=== PATIENT | female | born 1950 | race Two or more races ===

== ENCOUNTER 2017-12-13 19:34 | Inpatient (IN) | payer OTHER, MEDICAID ==
[~2017-12-13] VITALS: Ht 152.4 cm; Wt 68.0 kg
[~2017-12-13 19:34] MED LIST: ASPI-498 OR; ATOR20TA PO; CITA20TA3 PO; FAMO-12 PO; LEVO75TA42 PO
[2017-12-13 20:34] LABS: Basophils # (auto) 0.1 uL; Basophils % (auto) 0.9 % (0.0-2.0); Eosinophils # (auto) 0.4 uL; Hematocrit 35.6 % (36.0-46.0); Hemoglobin 12.1 g/dL (12.2-16.2); Lymphocytes # (auto) 2.7 uL; Lymphocytes % (auto) 29.6 % (10.0-50.0); Mean Corpuscular Hemoglobin 31.7 pg (28.0-32.0); Mean Corpuscular Hgb Conc. 33.9 g/dL (32.0-36.0); Mean Corpuscular Volume 93.4 fL (80.0-100.0); Monocytes % (auto) 10.4 % (0.0-12.0); Neutrophils % (auto) 55.1 % (37.0-80.0); Nucleated Red Blood Cells % 0.1 %; Platelet Count (auto) 210 10^3/uL (140-450); Red Blood Cells 3.81 10^6/uL (4.0-5.20); Red Cell Distribution Width 13.9 % (11.8-14.3); White Blood Cell 9.2 10^3/uL (4.4-10.8)
[2017-12-13 20:45] LABS: Albumin 3.2 g/dL (3.4-5.0); Anion Gap 10 (5-15); BUN/Creatinine Ratio 36.6; Blood Urea Nitrogen 34 mg/dL (7-18); Calcium 8.2 mg/dL (8.5-10.1); Carbon Dioxide 22 mmol/L (21-32); Chloride 109 mmol/L (98-107); GFR African American 77 mL/min; GFR Non-African American 64 mL/min; Glucose 128 mg/dL (74-106); INR 1.05 (0.9-1.15); Magnesium 2.2 mg/dL (1.6-2.6); Partial Thromboplastin Time 25.4 sec (23.78-33.04); Potassium 4.3 mmol/L (3.5-5.1); Prothrombin Time 11.2 sec (9.27-12.13); Sodium 141 mmol/L (136-145)
[2017-12-13 20:54] LABS: Alanine Aminotransferase 48 U/L (13-56); Alkaline Phosphatase 74 U/L (45-117); Aspartate Aminotransferase 37 U/L (15-37); Bilirubin, Total 0.3 mg/dL (0.2-1.0); Total Protein 6.8 g/dL (6.4-8.2)
[2017-12-13] MEDS ORDERED: HYDROcodone-ACET 5/325MG TAB PO ONE (21:15)
[2017-12-13] MEDS ORDERED: ONDANSETRON ODT 4 MG TAB PO ONE (21:15)
[2017-12-13] MEDS ORDERED: IOHEXOL 350 MG/ML 100ML IJ ONE (22:26)
[2017-12-14] MEDS ORDERED: MORPHINE SULFATE 4 MG/ML SYR/VIAL IV ONE
[2017-12-14] MEDS ORDERED: MORPHINE SULFATE 4 MG/ML SYR/VIAL IV PRN (01:15)
[2017-12-14] MEDS ORDERED: NITROGLYCERIN 0.4 MG SL TAB SL PRN (01:15)
[2017-12-14] MEDS: SODIUM CHLORIDE 0.9% 1,000 ML IV SCH ×2 (02:00→21:31)
[2017-12-14 05:00] VITALS: BP 145/78
[2017-12-14] MEDS ORDERED: HYDROcodone-ACET 10/325MG TAB PO ONE (06:00)
[2017-12-14] MEDS: LEVOTHYROXINE SODIUM 50 MCG TAB PO SCH (06:11)
[2017-12-14 09:00] VITALS: BP 100/61
[2017-12-14] MEDS ORDERED: ATORVASTATIN 20 MG TAB PO SCH ×2 (10:00→22:00)
[2017-12-14] MEDS: metFORMIN HYDROCHLORIDE 500 MG TAB PO SCH (10:00)
[2017-12-14] MEDS ORDERED: ENOXAPARIN SOD 60 MG/0.6 ML SYRINGE SC SCH (10:00)
[2017-12-14] MEDS: LOSARTAN POTASSIUM 50 MG TAB PO SCH ×2 (10:00→21:26)
[2017-12-14] MEDS: BACLOFEN 10 MG TAB PO SCH ×2 (10:19→21:26)
[2017-12-14] MEDS: FAMOTIDINE 20 MG TAB PO SCH (10:20)
[2017-12-14] MEDS: CITALOPRAM HYDROBR 20 MG TAB PO SCH (10:41)
[2017-12-14 12:58] VITALS: BP 125/74
[2017-12-14] MEDS ORDERED: DEXTROSE (50%) 50ML SYRG IV PRN (14:45)
[2017-12-14] MEDS ORDERED: HYDROcodone-ACET 10/325MG TAB PO PRN (14:45)
[2017-12-14] MEDS ORDERED: LOSA-46 PO (15:16)
[2017-12-14] MEDS ORDERED: ALBU1AER4 IN (15:16)
[2017-12-14] MEDS ORDERED: ALEN1TAB32 PO (15:16)
[2017-12-14] MEDS ORDERED: FENO1TAB42 PO (15:16)
[2017-12-14] MEDS ORDERED: CHOL100029 PO (15:16)
[2017-12-14] MEDS ORDERED: BACL20TA PO (15:16)
[2017-12-14] MEDS ORDERED: METF-370 PO (15:16)
[2017-12-14 16:19] VITALS: BP 127/71
[2017-12-14] MEDS: InsuLIN REG 1unit/0.01ml Soln (100units/ml) SC SCH (17:00)
[2017-12-14] MEDS: ACCU-CHEK COMFORT CURVE STRIP VI SCH ×2 (17:00→21:31)
[2017-12-14 22:00] VITALS: BP 137/75
[2017-12-14] MEDS ORDERED: InsuLIN REG 1unit/0.01ml Soln (100units/ml) SC SCH (22:00)
[2017-12-15] MEDS: traMADol HCL 50 MG TAB PO PRN ×3 (01:49→17:29)
[2017-12-15 05:00] VITALS: BP 123/74
[2017-12-15] MEDS: LEVOTHYROXINE SODIUM 50 MCG TAB PO SCH (06:24)
[2017-12-15] MEDS: ACCU-CHEK COMFORT CURVE STRIP VI SCH ×3 (06:26→17:23)
[2017-12-15] MEDS: InsuLIN REG 1unit/0.01ml Soln (100units/ml) SC SCH ×4 (06:27→17:26)
[2017-12-15 08:48] VITALS: BP 134/79
[2017-12-15] MEDS ORDERED: ENOXAPARIN SOD 60 MG/0.6 ML SYRINGE SC SCH (10:00)
[2017-12-15] MEDS: metFORMIN HYDROCHLORIDE 500 MG TAB PO SCH (10:00)
[2017-12-15] MEDS: CITALOPRAM HYDROBR 20 MG TAB PO SCH (10:21)
[2017-12-15] MEDS: LOSARTAN POTASSIUM 50 MG TAB PO SCH (10:22)
[2017-12-15] MEDS: BACLOFEN 10 MG TAB PO SCH (10:23)
[2017-12-15] MEDS: FAMOTIDINE 20 MG TAB PO SCH (10:23)
[2017-12-15 12:54] VITALS: BP 120/57
[2017-12-15 16:11] VITALS: BP 120/57
[2017-12-15 16:43] VITALS: BP 130/65
== END 2017-12-15 18:48 | disposition home or self-care (01) | DRG 563 ==
LOC: ER 19:34 → EDBD 19:34 → TELE 19:35 → TELE-CENTR 12-14 03:30
PROVIDERS: ADMIT Emergency Medicine; ATTEND Internal Medicine Cardiovascular Disease
DX: S42.251A Displaced fracture of greater tuberosity of right humerus, initial encounter for closed fracture (principal); J98.11 Atelectasis; E86.1 Hypovolemia; F41.9 Anxiety disorder, unspecified; I10 Essential (primary) hypertension; I67.2 Cerebral atherosclerosis; I95.1 Orthostatic hypotension; M19.019 Primary osteoarthritis, unspecified shoulder; M53.82 Other specified dorsopathies, cervical region; M19.072 Primary osteoarthritis, left ankle and foot; M77.30 Calcaneal spur, unspecified foot; W18.39XA Other fall on same level, initial encounter; S80.02XA Contusion of left knee, initial encounter; S16.1XXA Strain of muscle, fascia and tendon at neck level, initial encounter; M77.32 Calcaneal spur, left foot; M48.02 Spinal stenosis, cervical region; Z96.651 Presence of right artificial knee joint; Z86.73 Personal history of transient ischemic attack (TIA), and cerebral infarction without residual deficits; Z83.3 Family history of diabetes mellitus; Z82.3 Family history of stroke; Z82.49 Family history of ischemic heart disease and other diseases of the circulatory system; Z90.49 Acquired absence of other specified parts of digestive tract; Y93.89 Activity, other specified; Y92.098 Other place in other non-institutional residence as the place of occurrence of the external cause; Y99.8 Other external cause status
CPT/HCPCS: 36415; 70450; 71045; 71275; 72125; 73030; 73562; 73590; 73610; 80053; 82962; 83735; 83880; 84443; 84484; 85025; 85379; 85610; 85730; 93005; 94761; 96374; A6257; J1815; Q0162

== ENCOUNTER → 2018-03-18 | Outpatient (CLI) | payer MEDICARE, MEDICAID ==
[~2018-03-18] MED LIST changes: +ALBU1AER4 IN; +ALEN1TAB32 PO; +BACL20TA PO; +CHOL100029 PO; +FENO1TAB42 PO; +LOSA-46 PO; +METF-370 PO
== END | disposition home or self-care (01) ==
LOC: Rad HDHVI 13:54
PROVIDERS: ATTEND Internal Medicine Cardiovascular Disease
DX: I11.0 Hypertensive heart disease with heart failure (principal); I50.9 Heart failure, unspecified
CPT/HCPCS: 93306

== ENCOUNTER → 2018-03-28 | Outpatient (CLI) | payer MEDICARE, MEDICAID ==
[~2018-03-28] VITALS: Ht 152.4 cm; Wt 70.3 kg
[~2018-03-28] MED LIST changes: +ADENOSINE 59 MG in GIVE UN-DILUTED 0 ML IV ONE; +ADENOSINE 90 MG/30 ML INJ IV ONE
[2018-03-28 12:23] LABS: Urine Blood Negative /uL (Negative); Urine Specific Gravity 1.024 (1.001-1.035)
[2018-03-28 12:24] LABS: Basophils # (auto) 0.1 uL; Basophils % (auto) 0.9 % (0.0-2.0); Eosinophils # (auto) 0.3 uL; Eosinophils % (auto) 4.2 % (0.0-7.0); Hematocrit 38.9 % (36.0-46.0); Hemoglobin 12.9 g/dL (12.2-16.2); Lymphocytes # (auto) 2.4 uL; Lymphocytes % (auto) 28.8 % (10.0-50.0); Mean Corpuscular Hemoglobin 30.5 pg (28.0-32.0); Mean Corpuscular Volume 92.5 fL (80.0-100.0); Monocytes # (auto) 0.8 uL; Monocytes % (auto) 9.3 % (0.0-12.0); Neutrophils # (auto) 4.7 uL; Neutrophils % (auto) 56.8 % (37.0-80.0); Nucleated Red Blood Cells % 0.3 %; Platelet Count (auto) 230 10^3/uL (140-450); Red Blood Cells 4.21 10^6/uL (4.0-5.20); Red Cell Distribution Width 14.8 % (11.8-14.3); White Blood Cell 8.3 10^3/uL (4.4-10.8)
[2018-03-28 12:40] LABS: Potassium 3.7 mmol/L (3.5-5.1)
[2018-03-28 12:50] LABS: Albumin 3.4 g/dL (3.4-5.0); BUN/Creatinine Ratio 21.2; Bilirubin, Total 0.6 mg/dL (0.2-1.0); Calcium 8.3 mg/dL (8.5-10.1)
[2018-03-28 12:52] LABS: Free T4 (Free Thyroxine) 1.26 ng/dL (0.89-1.76)
== END | disposition home or self-care (01) ==
LOC: Rad HDHVI 09:34
PROVIDERS: ATTEND Internal Medicine Cardiovascular Disease
DX: E03.9 Hypothyroidism, unspecified (principal); E11.9 Type 2 diabetes mellitus without complications; E55.9 Vitamin D deficiency, unspecified; D51.9 Vitamin B12 deficiency anemia, unspecified; N39.0 Urinary tract infection, site not specified; I11.0 Hypertensive heart disease with heart failure; I50.33 Acute on chronic diastolic (congestive) heart failure; J98.4 Other disorders of lung; R60.9 Edema, unspecified
CPT/HCPCS: 36415; 78452; 80053; 80061; 81003; 82306; 82607; 83036; 84439; 84443; 85025; 87086; 93005; 96374; 96375; A9500; J0153

== ENCOUNTER → 2018-06-28 | Outpatient (CLI) | payer MEDICARE, MEDICAID ==
[~2018-06-28] MED LIST changes: -ADENOSINE 59 MG in GIVE UN-DILUTED 0 ML IV ONE; -ADENOSINE 90 MG/30 ML INJ IV ONE
== END | disposition home or self-care (01) ==
LOC: LAB 09:04
PROVIDERS: ATTEND Internal Medicine Cardiovascular Disease
DX: E11.40 Type 2 diabetes mellitus with diabetic neuropathy, unspecified (principal); E03.9 Hypothyroidism, unspecified
CPT/HCPCS: 36415; 83036; 84443

== ENCOUNTER → 2018-07-19 | Outpatient (CLI) | payer MEDICARE, MEDICAID | END | disposition home or self-care (01) | LOC: Rad HDHVI 11:34 | PROVIDERS: ATTEND Internal Medicine Cardiovascular Disease | DX: M48.061 Spinal stenosis, lumbar region without neurogenic claudication (principal); M43.16 Spondylolisthesis, lumbar region; M54.16 Radiculopathy, lumbar region; M12.88 Other specific arthropathies, not elsewhere classified, other specified site; R06.02 Shortness of breath | CPT/HCPCS: 72131 ==

== ENCOUNTER → 2018-10-25 | Outpatient (CLI) | payer MEDICARE, MEDICAID ==
[~2018-10-25] MED LIST changes: -LOSA-46 PO; +LOSA-69 PO
== END | disposition home or self-care (01) ==
LOC: Rad HDHVI 13:56
PROVIDERS: ATTEND Internal Medicine Cardiovascular Disease
DX: G45.9 Transient cerebral ischemic attack, unspecified (principal); E11.9 Type 2 diabetes mellitus without complications; R06.02 Shortness of breath
CPT/HCPCS: 93880

== ENCOUNTER 2018-12-05 18:45 | Inpatient (IN) | payer MEDICARE, MEDICAID ==
[~2018-12-05] VITALS: Ht 149.9 cm; Wt 60.0 kg
[2018-12-05] MEDS ORDERED: ACETAMINOPHEN 325 MG TAB PO ONE ×2 (18:56→19:00)
[2018-12-05 19:25] LABS: Basophils # (auto) 0.1 uL; Basophils % (auto) 0.5 % (0.0-2.0); Eosinophils # (auto) 0 uL; Eosinophils % (auto) 0.2 % (0.0-7.0); Hematocrit 37.3 % (36.0-46.0); Hemoglobin 12.3 g/dL (12.2-16.2); Lymphocytes # (auto) 1.4 uL; Lymphocytes % (auto) 9.5 % (10.0-50.0); Monocytes # (auto) 1.5 uL; Monocytes % (auto) 9.6 % (0.0-12.0); Neutrophils # (auto) 12.1 uL; Neutrophils % (auto) 80.2 % (37.0-80.0); Nucleated Red Blood Cells % 0.1 %; Platelet Count (auto) 228 10^3/uL (140-450); Red Cell Distribution Width 13.3 % (11.8-14.3); White Blood Cell 15.1 10^3/uL (4.4-10.8)
[2018-12-05 20:03] LABS: Alanine Aminotransferase 31 U/L (13-56); Albumin 3.5 g/dL (3.4-5.0); Anion Gap 10 (5-15); Aspartate Aminotransferase 23 U/L (15-37); BUN/Creatinine Ratio 18.5; Blood Urea Nitrogen 20 mg/dL (7-18); Carbon Dioxide 22 mmol/L (21-32); Chloride 101 mmol/L (98-107); GFR African American 65 mL/min; GFR Non-African American 53 mL/min; Glucose 147 mg/dL (74-106); Sodium 133 mmol/L (136-145)
[2018-12-05 20:08] LABS: Alkaline Phosphatase 49 U/L (45-117); Bilirubin, Total 0.7 mg/dL (0.2-1.0)
[2018-12-05 20:45] LABS: Urine Bacteria MANY /hpf (None Seen); Urine Blood TRACE /uL (Negative); Urine Hyaline Cast FEW /lpf (0 - 2); Urine Mucus FEW (None Seen); Urine Specific Gravity 1.013 (1.001-1.035); Urine WBC 369 /hpf (0 - 5); Urine WBC Clumps PRESENT /hpf (None Seen)
[2018-12-06] MEDS ORDERED: cefTRIAXone 1GM/50ML D5W 50 ML IV ONE (07:30)
[2018-12-06] MEDS: SODIUM CHLORIDE 0.9% 1,000 ML IV SCH ×2 (08:25→16:31)
[2018-12-06] MEDS ORDERED: DEXTROSE (50%) 50ML SYRG IV PRN (08:30)
[2018-12-06] MEDS ORDERED: ACETAMINOPHEN 500 MG TAB PO PRN (08:30)
[2018-12-06] MEDS ORDERED: MORPHINE SULF INJ 2 MG/ML SYRINGE 1ML IV PRN ×2 (08:30)
[2018-12-06] MEDS ORDERED: ONDANSETRON HCL 4 MG/2 ML VIAL IV PRN (08:30)
[2018-12-06] MEDS ORDERED: NITROGLYCERIN 0.4 MG SL TAB SL PRN (08:30)
[2018-12-06] MEDS: cefTRIAXone 1GM/50ML D5W 50 ML IV SCH (08:57)
[2018-12-06] MEDS ORDERED: ASPirin 325 MG TAB PO ONE (09:00)
[2018-12-06] MEDS ORDERED: ENOXAPARIN SOD 100 MG/1 ML SYRINGE SC ONE (09:00)
[2018-12-06] MEDS: CITALOPRAM HYDROBR 20 MG TAB PO SCH (10:00)
[2018-12-06] MEDS: ASPirin-EC 81 mg tab PO SCH (10:00)
[2018-12-06] MEDS: FAMOTIDINE 20 MG TAB PO SCH (10:00)
[2018-12-06] MEDS: LOSARTAN POTASSIUM 50 MG TAB PO SCH ×2 (10:00→22:22)
[2018-12-06] MEDS: DOCUSATE SOD 100 MG CAP PO SCH ×2 (10:00→22:21)
[2018-12-06] MEDS: CHOLECALCIFEROL (VITD3) 1,000 UNIT TAB PO SCH (10:00)
--- NOTE | 2018-12-06 12:00 | NUR ---
Telemetry admit from [facility] admitted to Telemetry unit after SBAR received. AAOX4, breathing even nonlabored, S1, S2, denied of n/v or abd pain at this time. IV to right FA 20G running NS @ 125ml/hr. Patient oriented to Jeff Cruz RN primary RN, unit, room, bed, and unit policies regarding patient care and visiting hours. Patient now on continuous telemetry monitoring, tele box # 36 and telemetry reading on arrival to unit is sinus rhythm 71. Patient placed on bedside oxygen, weighed by bedscale and encouraged to call if they need something. All questions and concerns addressed, patient verbalized understanding. Bed locked in the lowest position, call light within easy reach, will continue to monitor.
--- NOTE | 2018-12-06 12:14 | NUR ---
BLOOD CULTURE + FOR GRAM (_) JAK. SHERI QUINN MADE AWARE. NO NEW ORDER.
[2018-12-06] MEDS: InsuLIN REG 1unit/0.01ml Soln (100units/ml) SC SCH ×3 (12:24→22:32)
[2018-12-06] MEDS: ACCU-CHEK COMFORT CURVE STRIP VI SCH ×3 (12:24→22:23)
[2018-12-06 12:39] VITALS: BP 116/52
[2018-12-06 12:47] VITALS: BP 116/52
[2018-12-06 17:00] VITALS: BP 108/59
[2018-12-06] MEDS: HYDROcodone-ACET 5/325MG TAB PO PRN (18:13)
--- NOTE | 2018-12-06 18:49 | NUR ---
PT HAS TEMP 102.3, HR 160, BP 123/70. DR. VELASQUEZ MADE AWARE, NEW ORDER TYLENOL 650MG PO QID PRN. WILL CARRY OUT ORDER.
--- NOTE | 2018-12-06 21:10 | NUR ---
IV removal Patient complaining of pain at IV site. IV DC'd with clean sterile technique, catheter fully intact. Pressure dressing applied to site. Patient tolerated well.
--- NOTE | 2018-12-06 21:20 | NUR ---
IV insertion IV access obtained, via clean sterile technique by inserting gauge catheter at forearm after 1 attempt. IV secured properly. No trauma to site. Patient tolerated well.
[2018-12-06 22:00] VITALS: BP 143/53
[2018-12-06] MEDS: ATORVASTATIN 20 MG TAB PO SCH (22:21)
[2018-12-06] MEDS: BACLOFEN 10 MG TAB PO SCH (22:22)
[2018-12-07] MEDS: SODIUM CHLORIDE 0.9% 1,000 ML IV SCH ×3 (00:25→16:25)
[2018-12-07] MEDS: ACETAMINOPHEN 325 MG TAB PO PRN ×2 (03:52→11:56)
[2018-12-07 05:00] VITALS: BP 114/58
[2018-12-07 05:16] LABS: Basophils # (auto) 0.1 uL; Basophils % (auto) 0.5 % (0.0-2.0); Eosinophils # (auto) 0 uL; Eosinophils % (auto) 0.3 % (0.0-7.0); Hemoglobin 10.8 g/dL (12.2-16.2); Lymphocytes # (auto) 1.5 uL; Lymphocytes % (auto) 13.9 % (10.0-50.0); Mean Corpuscular Hemoglobin 30.8 pg (28.0-32.0); Mean Corpuscular Hgb Conc. 33.7 g/dL (32.0-36.0); Mean Corpuscular Volume 91.6 fL (80.0-100.0); Monocytes # (auto) 1.2 uL; Monocytes % (auto) 11.1 % (0.0-12.0); Neutrophils % (auto) 74.2 % (37.0-80.0); Platelet Count (auto) 207 10^3/uL (140-450); Red Blood Cells 3.49 10^6/uL (4.0-5.20); Red Cell Distribution Width 13.4 % (11.8-14.3); White Blood Cell 10.7 10^3/uL (4.4-10.8)
[2018-12-07 05:34] LABS: Calcium 7.6 mg/dL (8.5-10.1); Potassium 3.9 mmol/L (3.5-5.1)
[2018-12-07 05:37] LABS: BUN/Creatinine Ratio 18.6
[2018-12-07] MEDS: ACCU-CHEK COMFORT CURVE STRIP VI SCH ×4 (06:55→21:51)
[2018-12-07] MEDS ORDERED: LEVOTHYROXINE SODIUM 50 MCG PO SCH (07:00)
[2018-12-07] MEDS: LEVOTHYROXINE SODIUM 50 MCG TAB PO SCH (07:01)
[2018-12-07] MEDS: InsuLIN REG 1unit/0.01ml Soln (100units/ml) SC SCH ×4 (07:02→22:00)
[2018-12-07 09:00] VITALS: BP 144/76
[2018-12-07] MEDS: cefTRIAXone 1GM/50ML D5W 50 ML IV SCH (09:00)
[2018-12-07] MEDS: DOCUSATE SOD 100 MG CAP PO SCH ×2 (09:59→21:50)
[2018-12-07] MEDS: CITALOPRAM HYDROBR 20 MG TAB PO SCH (09:59)
[2018-12-07] MEDS: CHOLECALCIFEROL (VITD3) 1,000 UNIT TAB PO SCH (09:59)
[2018-12-07] MEDS: ASPirin-EC 81 mg tab PO SCH (09:59)
[2018-12-07] MEDS: BACLOFEN 10 MG TAB PO SCH ×2 (10:00→21:50)
[2018-12-07] MEDS: FAMOTIDINE 20 MG TAB PO SCH (10:00)
[2018-12-07] MEDS: LOSARTAN POTASSIUM 50 MG TAB PO SCH ×2 (10:00→21:50)
[2018-12-07 13:00] VITALS: BP 111/51
[2018-12-07 17:00] VITALS: BP 114/50
[2018-12-07 21:50] VITALS: BP 125/93
[2018-12-07] MEDS: ATORVASTATIN 20 MG TAB PO SCH (21:50)
[2018-12-07] MEDS: HYDROcodone-ACET 5/325MG TAB PO PRN (21:51)
[2018-12-08] MEDS: SODIUM CHLORIDE 0.9% 1,000 ML IV SCH ×2 (00:25→08:25)
[2018-12-08] MEDS: ACCU-CHEK COMFORT CURVE STRIP VI SCH ×4 (05:23→21:59)
[2018-12-08] MEDS: InsuLIN REG 1unit/0.01ml Soln (100units/ml) SC SCH ×4 (05:30→21:59)
[2018-12-08] MEDS: LEVOTHYROXINE SODIUM 50 MCG TAB PO SCH (05:30)
[2018-12-08 05:31] VITALS: BP 152/66
--- NOTE | 2018-12-08 07:30 | NUR ---
Opening Shift Note Assumed care of patient, awake and alert. No S/S of distress/SOB or pain. Instructed on POC and to call for assist PRN, will continue to monitor for changes Q1hr and PRN.
[2018-12-08 09:00] VITALS: BP 155/64
[2018-12-08] MEDS: cefTRIAXone 1GM/50ML D5W 50 ML IV SCH (09:00)
[2018-12-08] MEDS: CHOLECALCIFEROL (VITD3) 1,000 UNIT TAB PO SCH (10:39)
[2018-12-08] MEDS: LOSARTAN POTASSIUM 50 MG TAB PO SCH ×2 (10:41→21:58)
[2018-12-08] MEDS: ASPirin-EC 81 mg tab PO SCH (10:41)
[2018-12-08] MEDS: FAMOTIDINE 20 MG TAB PO SCH (10:42)
[2018-12-08] MEDS: CITALOPRAM HYDROBR 20 MG TAB PO SCH (10:43)
[2018-12-08] MEDS: DOCUSATE SOD 100 MG CAP PO SCH ×2 (10:43→21:57)
[2018-12-08] MEDS: BACLOFEN 10 MG TAB PO SCH ×2 (10:44→21:57)
[2018-12-08] MEDS: HYDROcodone-ACET 5/325MG TAB PO PRN (11:42)
[2018-12-08 13:00] VITALS: BP 125/48
--- NOTE | 2018-12-08 15:38 | NUR ---
assessment Patient is a 67 year old female who is alert and oriented. Patients cognitive abilities are intact. Prior to admission patient lived home with her roommate and functioned with assistance. Per patient she will return home to her prior living arrangements post discharge and will have transport home. Patient informed me she has a [facility] caregiver. Patients PCP is Dr Jordan. Patient is on service with [facility]. Patient will need a resumption of care for home health on discharge. I informed patient she has a right to speak to a social economist regarding all care. I informed patient she has a right to participate in any and all discharge planning. Patient is aware of visiting hours on the hospital floor. I informed patient she has a right to privacy. Patient does not have a POA and advanced directive. I have offered patient information on POA and advanced directives. I informed the patient the advantages and benefits of having an Advanced Directive. Patient verbalized understanding and agreed to discharge plan. Addendum: 12/08/18 at 1547 by Ashely CASON Amended: Links added.
[2018-12-08 16:03] LABS: Basophils # (auto) 0.1 uL; Eosinophils # (auto) 0.2 uL; Eosinophils % (auto) 2.4 % (0.0-7.0); Hematocrit 32.1 % (36.0-46.0); Hemoglobin 10.8 g/dL (12.2-16.2); Lymphocytes # (auto) 2.4 uL; Lymphocytes % (auto) 29.7 % (10.0-50.0); Mean Corpuscular Hemoglobin 30.8 pg (28.0-32.0); Mean Corpuscular Hgb Conc. 33.6 g/dL (32.0-36.0); Mean Corpuscular Volume 91.7 fL (80.0-100.0); Monocytes % (auto) 11.7 % (0.0-12.0); Neutrophils # (auto) 4.5 uL; Neutrophils % (auto) 55.2 % (37.0-80.0); Nucleated Red Blood Cells % 0.1 %; Platelet Count (auto) 242 10^3/uL (140-450); Red Cell Distribution Width 13.6 % (11.8-14.3); White Blood Cell 8.1 10^3/uL (4.4-10.8)
[2018-12-08 16:15] LABS: Albumin 2.5 g/dL (3.4-5.0); BUN/Creatinine Ratio 17.1; Calcium 8.4 mg/dL (8.5-10.1); Potassium 4.1 mmol/L (3.5-5.1)
[2018-12-08 16:18] LABS: Bilirubin, Total 0.2 mg/dL (0.2-1.0); Total Protein 6.6 g/dL (6.4-8.2)
[2018-12-08 17:00] VITALS: BP 144/75
--- NOTE | 2018-12-08 19:10 | NUR ---
Opening Shift Note Received report from Jessica HAYWARD. Assumed care of patient, awake and alert. No S/S of distress/SOB or pain. Instructed on POC and to call for assist PRN. Fall precaution measures in place, will continue to monitor for changes Q1hr and PRN.
[2018-12-08 19:28] LABS: Urine Bacteria NONE SEEN /hpf (None Seen); Urine Blood Negative /uL (Negative); Urine Specific Gravity 1.006 (1.001-1.035); Urine WBC 1 /hpf (0 - 5)
[2018-12-08 21:40] VITALS: BP 140/65
[2018-12-08] MEDS: ATORVASTATIN 20 MG TAB PO SCH (21:57)
[2018-12-08] MEDS: ACETAMINOPHEN 325 MG TAB PO PRN (21:59)
[2018-12-09] VITALS (7 sets, daily range): BP systolic 141–177; BP diastolic 60–74
[2018-12-09] MEDS: SODIUM CHLORIDE 0.9% 1,000 ML IV SCH ×3 (02:20→16:25)
[2018-12-09] MEDS: ACCU-CHEK COMFORT CURVE STRIP VI SCH ×4 (06:50→22:23)
[2018-12-09] MEDS: LEVOTHYROXINE SODIUM 50 MCG TAB PO SCH (06:50)
[2018-12-09] MEDS: InsuLIN REG 1unit/0.01ml Soln (100units/ml) SC SCH ×4 (06:51→22:00)
--- NOTE | 2018-12-09 07:28 | NUR ---
Opening Shift Note Report received from NOC RN and patient rounded on by both RNs. Patient awake, and reporting chills. Will recheck temperature as last was normal. Patient oriented to this RN and POC. Call light within reach and patient understands to call if needing assistance.
[2018-12-09] MEDS: ACETAMINOPHEN 325 MG TAB PO PRN ×3 (08:17→22:24)
[2018-12-09] MEDS: cefTRIAXone 1GM/50ML D5W 50 ML IV SCH (09:02)
[2018-12-09] MEDS: ASPirin-EC 81 mg tab PO SCH (09:03)
[2018-12-09] MEDS: FAMOTIDINE 20 MG TAB PO SCH (09:03)
[2018-12-09] MEDS: CHOLECALCIFEROL (VITD3) 1,000 UNIT TAB PO SCH (09:03)
[2018-12-09] MEDS: DOCUSATE SOD 100 MG CAP PO SCH ×2 (09:04→22:22)
[2018-12-09] MEDS: BACLOFEN 10 MG TAB PO SCH ×2 (09:04→22:22)
[2018-12-09] MEDS: CITALOPRAM HYDROBR 20 MG TAB PO SCH (09:04)
[2018-12-09] MEDS: LOSARTAN POTASSIUM 50 MG TAB PO SCH ×2 (09:04→22:23)
--- NOTE | 2018-12-09 12:05 | NUR ---
NUTRITION ASSESSMENT NOTES Please refer to link notes of nutrition screen form filed under the intervention section of the plan of care for further details. Est. Needs: 1450 kcal to 1750 kcal (25-30 kcal/kgBW), 58 gms to 70 gms pro (1.0-1.2 gms/kgBW). Will continue to monitor pertinent labs and reassess nutrient need prn Thank you. Addendum: 12/09/18 at [address] Amended: Links added.
--- NOTE | 2018-12-09 15:30 | NUR ---
MD at bedside Dr. Jordan came to see patient and this RN reported high fever last night and continuous abdominal tenderness. Order received for CT abdomen and pelvis with IV/oral contrast.
[2018-12-09] MEDS ORDERED: IOHEXOL 300 MG/ML 100ML BOTTLE IJ ONE (15:37)
[2018-12-09] MEDS ORDERED: OMNIPAQUE ORAL SOLN 500ml 12mg/ml PO ONE (15:38)
--- NOTE | 2018-12-09 19:15 | NUR ---
Opening Shift Note Received report from Carisa HAYWARD. Assumed care of patient, awake and alert. No S/S of distress/SOB or pain. Instructed on POC and to call for assist PRN, will continue to monitor for changes Q1hr and PRN.
[2018-12-09] MEDS: ATORVASTATIN 20 MG TAB PO SCH (22:22)
[2018-12-10] MEDS: SODIUM CHLORIDE 0.9% 1,000 ML IV SCH ×3 (01:30→14:02)
[2018-12-10 05:28] VITALS: BP 147/72
[2018-12-10] MEDS: LEVOTHYROXINE SODIUM 50 MCG TAB PO SCH (07:05)
[2018-12-10] MEDS: InsuLIN REG 1unit/0.01ml Soln (100units/ml) SC SCH ×4 (07:05→21:48)
[2018-12-10] MEDS: ACCU-CHEK COMFORT CURVE STRIP VI SCH ×4 (07:05→21:48)
--- NOTE | 2018-12-10 08:00 | NUR ---
OPENING SHIFT NOTE ASSUMED CARE OF PATIENT. PATIENT IS AWAKE AND ALERT. NO SOB OR SIGNS OF DISTRESS NOTED. INSTRUCTED ON POC AND TO CALL FOR ASSISTANCE PRN. BED IN LOWEST POSITION WITH SIDE RAILS UP X2. WILL CONTINUE TO MONITOR.
[2018-12-10 09:00] VITALS: BP 155/71
[2018-12-10] MEDS: cefTRIAXone 1GM/50ML D5W 50 ML IV SCH (09:35)
[2018-12-10] MEDS: CHOLECALCIFEROL (VITD3) 1,000 UNIT TAB PO SCH (09:36)
[2018-12-10] MEDS: ACETAMINOPHEN 325 MG TAB PO PRN ×2 (09:37→21:38)
[2018-12-10] MEDS: ASPirin-EC 81 mg tab PO SCH (09:37)
[2018-12-10] MEDS: LOSARTAN POTASSIUM 50 MG TAB PO SCH ×2 (09:37→21:37)
[2018-12-10] MEDS: CITALOPRAM HYDROBR 20 MG TAB PO SCH (09:37)
[2018-12-10] MEDS: FAMOTIDINE 20 MG TAB PO SCH (09:38)
[2018-12-10] MEDS: BACLOFEN 10 MG TAB PO SCH ×2 (09:38→21:37)
[2018-12-10] MEDS: DOCUSATE SOD 100 MG CAP PO SCH ×2 (09:38→21:37)
[2018-12-10 13:00] VITALS: BP 144/77
[2018-12-10] MEDS: PIPERACILLIN-TAZO 4.5GM 100 ML IV SCH ×2 (14:00→21:37)
[2018-12-10 16:40] VITALS: BP 155/55
--- NOTE | 2018-12-10 19:20 | NUR ---
Opening Shift Note Report received from day shift RN. Assumed care of patient. Patient sitting in bed awake and alert x4. Family at bedside. No S/S of distress/SOB noted and denies pain at this time. Bed locked and left in the lowest position. Call left within reach. Instructed on POC and to call for assist PRN, will continue to monitor for changes Q1hr and PRN.
[2018-12-10] MEDS: ATORVASTATIN 20 MG TAB PO SCH (21:38)
[2018-12-10 22:00] VITALS: BP 164/73
[2018-12-11] MEDS: SODIUM CHLORIDE 0.9% 1,000 ML IV SCH ×3 (00:25→16:25)
[2018-12-11 05:00] VITALS: BP 165/77
[2018-12-11] MEDS: PIPERACILLIN-TAZO 4.5GM 100 ML IV SCH ×3 (06:04→21:35)
[2018-12-11] MEDS: ACCU-CHEK COMFORT CURVE STRIP VI SCH ×4 (06:04→21:38)
[2018-12-11] MEDS: LEVOTHYROXINE SODIUM 50 MCG TAB PO SCH (06:04)
[2018-12-11] MEDS: InsuLIN REG 1unit/0.01ml Soln (100units/ml) SC SCH ×4 (06:13→22:06)
[2018-12-11] MEDS: ACETAMINOPHEN 325 MG TAB PO PRN ×2 (08:59→21:35)
[2018-12-11 09:00] VITALS: BP 182/75
[2018-12-11] MEDS: DOCUSATE SOD 100 MG CAP PO SCH ×2 (09:13→21:35)
[2018-12-11] MEDS: FAMOTIDINE 20 MG TAB PO SCH (09:14)
[2018-12-11] MEDS: ASPirin-EC 81 mg tab PO SCH (09:14)
[2018-12-11] MEDS: BACLOFEN 10 MG TAB PO SCH ×2 (09:14→21:35)
[2018-12-11] MEDS: CHOLECALCIFEROL (VITD3) 1,000 UNIT TAB PO SCH (09:14)
[2018-12-11] MEDS: CITALOPRAM HYDROBR 20 MG TAB PO SCH (09:15)
[2018-12-11] MEDS: LOSARTAN POTASSIUM 50 MG TAB PO SCH ×2 (09:15→21:55)
[2018-12-11 13:00] VITALS: BP 177/84
[2018-12-11] MEDS: cloNIDine HCL 0.1 MG TAB PO PRN (16:50)
[2018-12-11 17:00] VITALS: BP 163/77
--- NOTE | 2018-12-11 17:00 | NUR ---
Patient had blood pressure of 177/72. Contacted Dr. Jordan for prn medication. Gave orders. Will place and carry out.
--- NOTE | 2018-12-11 18:30 | NUR ---
ADMINISTERED BLOOD PRESSURE MEDICATION. BP ON REASSESSMENT WAS 158/76.
--- NOTE | 2018-12-11 19:25 | NUR ---
Opening Shift Note Report received from day shift RN. Assumed care of patient. Patient sitting in bed awake and alert x4. No S/S of distress/SOB noted. Patient states having a headache, pain level 6/10 on a numerical scale. Will medicate patient as ordered. Bed locked and left in the lowest position. Call left within reach. Instructed on POC and to call for assist PRN, will continue to monitor for changes Q1hr and PRN.
[2018-12-11] MEDS: ATORVASTATIN 20 MG TAB PO SCH (21:38)
[2018-12-11 22:23] VITALS: BP 164/75
[2018-12-12] MEDS: SODIUM CHLORIDE 0.9% 1,000 ML IV SCH ×4 (00:25→23:56)
[2018-12-12] MEDS: cloNIDine HCL 0.1 MG TAB PO PRN (01:02)
[2018-12-12 05:26] VITALS: BP 151/71
[2018-12-12] MEDS: LEVOTHYROXINE SODIUM 50 MCG TAB PO SCH (06:04)
[2018-12-12] MEDS: PIPERACILLIN-TAZO 4.5GM 100 ML IV SCH ×3 (06:04→21:44)
[2018-12-12] MEDS: ACCU-CHEK COMFORT CURVE STRIP VI SCH ×4 (06:04→21:56)
[2018-12-12] MEDS: InsuLIN REG 1unit/0.01ml Soln (100units/ml) SC SCH ×4 (06:20→21:55)
[2018-12-12 09:00] VITALS: BP 138/68
[2018-12-12] MEDS: CITALOPRAM HYDROBR 20 MG TAB PO SCH (09:24)
[2018-12-12] MEDS: DOCUSATE SOD 100 MG CAP PO SCH ×2 (09:25→21:44)
[2018-12-12] MEDS: CHOLECALCIFEROL (VITD3) 1,000 UNIT TAB PO SCH (09:25)
[2018-12-12] MEDS: ASPirin-EC 81 mg tab PO SCH (09:25)
[2018-12-12] MEDS: FAMOTIDINE 20 MG TAB PO SCH (09:25)
[2018-12-12] MEDS: BACLOFEN 10 MG TAB PO SCH ×2 (09:25→21:45)
[2018-12-12] MEDS: LOSARTAN POTASSIUM 50 MG TAB PO SCH ×2 (09:28→21:45)
--- NOTE | 2018-12-12 10:58 | NUR ---
Nutrition Follow-up Notes Wt.: 58.0 kg Pt was sleeping with no family by bedside. per records pt with UTI sepsis and leucocytosis. pt with no distress noted per nursing. pt is currently on CCHO 60 gm/meal diet with adequate PO of 75% x 4 per RN doc Est. Needs: 1450 kcal to 1750 kcal (25-30 kcal/kgBW), 58 gms to 70 gms pro (1.0-1.2 gms/kgBW). Will continue to monitor pertinent labs and reassess nutrient need prn Labs: No new labs today 12/08: ALB 2.5 L, CA 8.4 L, GLU 108 H, POC GLU 141 H Skin: Gabino scale 20low risk skin intact per [facility]. GI: Pt had 2 BM yesterday per [facility]. PES: Altered nutrition related lab values r/t current/chronic medical condition aeb hyperglycemia, hyperchloremia, elev. HbA1c, LFTs, hypocalcemia and mod hypoalbuminemia Will continue to monitor PO intake, skin status, pertinent labs and weight trend. F/u in 3-5 days. Rec.: 1.) Consider Consistent Standard Carb: 60 gms/meal, Cardiac: 2 gms Na, Low Chol, Low Fat diet, if LFTs continue trending up. 2.) If Albumin continues trending down, consider Prostat 1 pkt BID. 3.) Continue close supervision and feeding assistance prn during meals. 4.) Refer to CDE/RD for further nutrition educ. and weight monitoring upon discharge. 5.) Continue current plan of care.
[2018-12-12 13:00] VITALS: BP 161/63
[2018-12-12 13:54] LABS: Hematocrit 35.4 % (36.0-46.0); Hemoglobin 11.8 g/dL (12.2-16.2); Mean Corpuscular Hemoglobin 29.9 pg (28.0-32.0); Mean Corpuscular Hgb Conc. 33.4 g/dL (32.0-36.0); Mean Corpuscular Volume 89.3 fL (80.0-100.0); Platelet Count (auto) 408 10^3/uL (140-450); Red Blood Cells 3.97 10^6/uL (4.0-5.20); Red Cell Distribution Width 13.8 % (11.8-14.3)
[2018-12-12 14:14] LABS: Albumin 2.8 g/dL (3.4-5.0); Potassium 3.9 mmol/L (3.5-5.1)
[2018-12-12 14:17] LABS: Bilirubin, Total 0.4 mg/dL (0.2-1.0); Total Protein 7.3 g/dL (6.4-8.2)
[2018-12-12 14:20] LABS: Band Neutrophils % (manual) 0; Basophils % (manual) 0 (0.0-2.0); Blast Cells 0; Metamyelocytes % 0; Myelocytes % 0; Promyelocytes % 0; Reactive Lymphocytes 0
[2018-12-12 14:46] LABS: Eosinophils % (manual) 2 (0-7); Lymphocytes % (manual) 36 (10.0-50.0); Monocytes % (manual) 4 (0-12)
[2018-12-12 17:00] VITALS: BP 160/76
[2018-12-12] MEDS: HYDROcodone-ACET 5/325MG TAB PO PRN (19:45)
[2018-12-12] MEDS: ATORVASTATIN 20 MG TAB PO SCH (21:45)
[2018-12-12 21:48] VITALS: BP 141/63
[2018-12-13 05:08] VITALS: BP 132/52
[2018-12-13] MEDS: PIPERACILLIN-TAZO 4.5GM 100 ML IV SCH ×2 (05:42→14:04)
[2018-12-13] MEDS: InsuLIN REG 1unit/0.01ml Soln (100units/ml) SC SCH ×3 (06:41→17:00)
[2018-12-13] MEDS: LEVOTHYROXINE SODIUM 50 MCG TAB PO SCH (06:41)
[2018-12-13] MEDS: ACCU-CHEK COMFORT CURVE STRIP VI SCH ×3 (06:41→17:00)
--- NOTE | 2018-12-13 07:50 | NUR ---
RECEIVED PATIENT ALERT AND ORIENTED X4, NOT IN DISTRESS CLEAR LS IN BILATERAL LUNG LOBES, RR=18 SAT=98, DEEP BREATHING AND COUGHING ENCOURAGED, DEMONSTRATED AND VERBALIZED UNDERSTANDING, DENIED CHEST PAIN OR SOB, S ELLIOT R=54 IN TELE MONITOR, ABDOMEN SOFT WITH ACTIVE BS, LAST BM=12/12/18 REPORTED, BSC PRIVILEGE WITH ASSISTANCE, SKIN INTACT WARM TO TOUCH, SITTING ON BED DANGLING AND EATING BREAK FAST AT THIS MOMENT, BED ON LOW POSITION, CALL LIGHT ON REACH, WILL CONTINUE MONITORING.
[2018-12-13] MEDS: SODIUM CHLORIDE 0.9% 1,000 ML IV SCH ×2 (08:17→16:25)
[2018-12-13 09:25] VITALS: BP 137/67
[2018-12-13] MEDS: LOSARTAN POTASSIUM 50 MG TAB PO SCH (09:41)
[2018-12-13] MEDS: FAMOTIDINE 20 MG TAB PO SCH (09:42)
[2018-12-13] MEDS: BACLOFEN 10 MG TAB PO SCH (09:43)
[2018-12-13] MEDS: ASPirin-EC 81 mg tab PO SCH (09:43)
[2018-12-13] MEDS: DOCUSATE SOD 100 MG CAP PO SCH (09:43)
[2018-12-13] MEDS: CITALOPRAM HYDROBR 20 MG TAB PO SCH (09:43)
[2018-12-13] MEDS: CHOLECALCIFEROL (VITD3) 1,000 UNIT TAB PO SCH (10:06)
[2018-12-13 12:58] VITALS: BP 143/69
--- NOTE | 2018-12-13 14:30 | NUR ---
Not in distress, denied pain, tolerated provided diet tray well, tolerating bed side commode with assistance, soft consistent medium brown BM x2 noted, resting on bed, will continue monitoring.
[2018-12-13 16:43] VITALS: BP 145/65
--- NOTE | 2018-12-13 18:43 | NUR ---
D/C Planning Per consult for home health physical therapy. Contacted [facility] Ph:) Fax:) Faxed medical records. Per Danette from [facility] to resume service for Pt. Informed MAINOR Tejeda regarding need for physical therapy evaluation. MAINOR Tejeda stated Physical therapist was gone for the day. Advised MAINOR Tejeda that pt does have home health set up for physical therapy. MAINOR Tejeda verbalize understanding and Pt was aware of home health acceptance. Addendum: 12/13/18 at 1848 by KURT PORTILLO Amended: Links added.
--- NOTE | 2018-12-13 19:06 | NUR ---
D/C INSTRUCTIONS AND EDUCATION PROVIDED, FOLLOW UP APPOINTMENT WITH DR. VELASQUEZ AND [facility] INFORMATION PROVIDED, VERBALIZED UNDERSTANDING, D/C TELE AND IV SITE, TOLERATED WELL, VS T=97.8 RR=18 SAT=98 P=58 IS=326/67, D/C HOME ON WC ACCOMPANIED BY FAMILY, TOOK ALL BELONGINGS AND LEFT NOTHING BEHIND.
== END 2018-12-13 18:55 | disposition home health service (06) | DRG 872 ==
LOC: ER 18:48 → TELE 18:49 → TELE-CENTR 12-06 12:23
PROVIDERS: ADMIT Nurse Practitioner Acute Care; ATTEND Internal Medicine Cardiovascular Disease
DX: A41.9 Sepsis, unspecified organism (principal); N12 Tubulo-interstitial nephritis, not specified as acute or chronic; E86.0 Dehydration; M19.90 Unspecified osteoarthritis, unspecified site; M81.0 Age-related osteoporosis without current pathological fracture; E03.9 Hypothyroidism, unspecified; E11.65 Type 2 diabetes mellitus with hyperglycemia; I10 Essential (primary) hypertension; K57.30 Diverticulosis of large intestine without perforation or abscess without bleeding; E78.00 Pure hypercholesterolemia, unspecified; E78.5 Hyperlipidemia, unspecified; I70.8 Atherosclerosis of other arteries; Z96.659 Presence of unspecified artificial knee joint; X58.XXXD Exposure to other specified factors, subsequent encounter; B96.20 Unspecified Escherichia coli [E. coli] as the cause of diseases classified elsewhere; E11.40 Type 2 diabetes mellitus with diabetic neuropathy, unspecified; E11.21 Type 2 diabetes mellitus with diabetic nephropathy; K76.0 Fatty (change of) liver, not elsewhere classified; Z79.84 Long term (current) use of oral hypoglycemic drugs; Z80.41 Family history of malignant neoplasm of ovary; Z82.3 Family history of stroke; Z82.49 Family history of ischemic heart disease and other diseases of the circulatory system; Z83.3 Family history of diabetes mellitus; Z86.73 Personal history of transient ischemic attack (TIA), and cerebral infarction without residual deficits; Z90.49 Acquired absence of other specified parts of digestive tract; Z79.899 Other long term (current) drug therapy; S42.212D Unspecified displaced fracture of surgical neck of left humerus, subsequent encounter for fracture with routine healing; Z88.6 Allergy status to analgesic agent; I25.2 Old myocardial infarction
CPT/HCPCS: 36415; 71045; 74177; 80048; 80053; 81001; 82962; 83036; 83605; 84443; 84484; 85007; 85025; 85027; 87040; 87077; 87086; 87088; 87186; 93005; 96365; 96375; G0378; J0696; J1815; J2405; J2543

== ENCOUNTER → 2018-12-19 | Outpatient (CLI) | payer MEDICARE, MEDICAID ==
[2018-12-19 16:07] LABS: Basophils # (auto) 0.1 uL; Eosinophils # (auto) 0.2 uL; Eosinophils % (auto) 2.9 % (0.0-7.0); Hematocrit 37.3 % (36.0-46.0); Hemoglobin 12.7 g/dL (12.2-16.2); Lymphocytes # (auto) 1.8 uL; Lymphocytes % (auto) 24.4 % (10.0-50.0); Mean Corpuscular Hemoglobin 31.1 pg (28.0-32.0); Mean Corpuscular Volume 91.5 fL (80.0-100.0); Monocytes # (auto) 0.6 uL; Monocytes % (auto) 8.9 % (0.0-12.0); Neutrophils # (auto) 4.6 uL; Neutrophils % (auto) 62.8 % (37.0-80.0); Platelet Count (auto) 333 10^3/uL (140-450); Red Blood Cells 4.07 10^6/uL (4.0-5.20); Red Cell Distribution Width 14.7 % (11.8-14.3); White Blood Cell 7.3 10^3/uL (4.4-10.8)
[2018-12-19 16:08] LABS: Urine Blood Negative /uL (Negative); Urine Specific Gravity 1.019 (1.001-1.035)
[2018-12-19 16:15] LABS: BUN/Creatinine Ratio 25.3; Potassium 4.3 mmol/L (3.5-5.1)
== END | disposition home or self-care (01) ==
LOC: LAB 11:26
PROVIDERS: ATTEND Internal Medicine Cardiovascular Disease
DX: D64.9 Anemia, unspecified (principal); N39.0 Urinary tract infection, site not specified; I11.0 Hypertensive heart disease with heart failure; I50.9 Heart failure, unspecified
CPT/HCPCS: 36415; 80048; 81003; 85025; 87086

== ENCOUNTER → 2018-12-21 | Outpatient (CLI) | payer MEDICARE, MEDICAID | END | disposition home or self-care (01) | LOC: Rad HDHVI 14:03 | PROVIDERS: ATTEND Internal Medicine Cardiovascular Disease | DX: I08.8 Other rheumatic multiple valve diseases (principal); I10 Essential (primary) hypertension; J98.4 Other disorders of lung | CPT/HCPCS: 93306 ==

== ENCOUNTER → 2019-01-23 | Outpatient (CLI) | payer MEDICARE, MEDICAID ==
[2019-01-23 16:01] LABS: Urine Blood Negative /uL (Negative); Urine Specific Gravity 1.007 (1.001-1.035)
[2019-01-23 16:08] LABS: Albumin 3.5 g/dL (3.4-5.0); Potassium 4.6 mmol/L (3.5-5.1)
[2019-01-23 16:12] LABS: Basophils # (auto) 0.1 uL; Basophils % (auto) 1.2 % (0.0-2.0); Eosinophils # (auto) 0.3 uL; Eosinophils % (auto) 3.9 % (0.0-7.0); Hematocrit 37.5 % (36.0-46.0); Hemoglobin 12.4 g/dL (12.2-16.2); Lymphocytes # (auto) 1.9 uL; Mean Corpuscular Hemoglobin 30.6 pg (28.0-32.0); Mean Corpuscular Volume 92.6 fL (80.0-100.0); Monocytes # (auto) 0.6 uL; Monocytes % (auto) 9.1 % (0.0-12.0); Neutrophils # (auto) 3.9 uL; Neutrophils % (auto) 57.8 % (37.0-80.0); Platelet Count (auto) 264 10^3/uL (140-450); Red Blood Cells 4.06 10^6/uL (4.0-5.20); Red Cell Distribution Width 15.7 % (11.8-14.3); White Blood Cell 6.8 10^3/uL (4.4-10.8)
[2019-01-23 16:16] LABS: Bilirubin, Direct 0.1 mg/dL (0-0.2); Bilirubin, Total 0.3 mg/dL (0.2-1.0); Calcium 8.9 mg/dL (8.5-10.1); Total Protein 7.7 g/dL (6.4-8.2)
== END | disposition home or self-care (01) ==
LOC: LAB 12:15
PROVIDERS: ATTEND Internal Medicine Cardiovascular Disease
DX: E03.9 Hypothyroidism, unspecified (principal); I10 Essential (primary) hypertension; N39.0 Urinary tract infection, site not specified; K90.9 Intestinal malabsorption, unspecified; I50.9 Heart failure, unspecified; F32.9 Major depressive disorder, single episode, unspecified; Z88.5 Allergy status to narcotic agent; Z79.899 Other long term (current) drug therapy; Z82.3 Family history of stroke; Z82.49 Family history of ischemic heart disease and other diseases of the circulatory system; Z83.3 Family history of diabetes mellitus; Z83.42 Family history of familial hypercholesterolemia; Z80.41 Family history of malignant neoplasm of ovary
CPT/HCPCS: 36415; 80048; 80061; 80076; 81003; 82306; 83036; 84443; 85025

== ENCOUNTER → 2019-03-06 | Outpatient (CLI) | payer MEDICARE, MEDICAID ==
[~2019-03-06] MED LIST changes: +READI-CAT 2 (BARIUM SULF)(VANILLA SMOOTHIE) 450ML ONE
== END | disposition home or self-care (01) ==
LOC: Rad HDHVI 12:26
PROVIDERS: ATTEND Internal Medicine Cardiovascular Disease
DX: I70.8 Atherosclerosis of other arteries (principal)
CPT/HCPCS: 74176

== ENCOUNTER → 2019-08-21 | Outpatient (CLI) | payer MEDICARE, MEDICAID ==
[~2019-08-21] MED LIST changes: +FENO145T27 PO; -FENO1TAB42 PO; -READI-CAT 2 (BARIUM SULF)(VANILLA SMOOTHIE) 450ML ONE
[2019-08-21 12:09] LABS: Urine Blood Negative /uL (Negative); Urine Specific Gravity 1.019 (1.001-1.035)
[2019-08-21 12:21] LABS: Hematocrit 38.3 % (36.0-46.0); Hemoglobin 12.7 g/dL (12.2-16.2); Mean Corpuscular Hemoglobin 30.5 pg (28.0-32.0); Mean Corpuscular Hgb Conc. 33.2 g/dL (32.0-36.0); Mean Corpuscular Volume 91.9 fL (80.0-100.0); Platelet Count (auto) 200 10^3/uL (140-450); Red Blood Cells 4.17 10^6/uL (4.0-5.20); Red Cell Distribution Width 15.2 % (11.8-14.3); White Blood Cell 7.1 10^3/uL (4.4-10.8)
[2019-08-21 12:23] LABS: Band Neutrophils % (manual) 0; Basophils % (manual) 0 (0.0-2.0); Blast Cells 0; Metamyelocytes % 0; Promyelocytes % 0; Reactive Lymphocytes 0
[2019-08-21 12:29] LABS: Free T4 (Free Thyroxine) 1.48 ng/dL (0.89-1.76)
[2019-08-21 12:36] LABS: Albumin 3.4 g/dL (3.4-5.0); BUN/Creatinine Ratio 22.4; Bilirubin, Total 0.4 mg/dL (0.2-1.0); Calcium 8.7 mg/dL (8.5-10.1); Total Protein 7.2 g/dL (6.4-8.2)
[2019-08-21 12:42] LABS: Eosinophils % (manual) 7 (0-7); Lymphocytes % (manual) 44 (10.0-50.0); Monocytes % (manual) 7 (0-12); Myelocytes % 1
== END | disposition home or self-care (01) ==
LOC: LAB 09:19
PROVIDERS: ATTEND Internal Medicine Cardiovascular Disease
DX: N39.0 Urinary tract infection, site not specified (principal); Z00.00 Encounter for general adult medical examination without abnormal findings; E03.9 Hypothyroidism, unspecified; K90.9 Intestinal malabsorption, unspecified; Z79.899 Other long term (current) drug therapy; D51.9 Vitamin B12 deficiency anemia, unspecified
CPT/HCPCS: 36415; 80053; 80061; 81003; 82306; 82607; 83036; 84439; 84443; 85007; 85027; 87086; 87088; 87186

== ENCOUNTER → 2019-08-28 | Outpatient (CLI) | payer MEDICARE, MEDICAID ==
[2019-08-28 16:06] LABS: Urine Blood Negative /uL (Negative); Urine Specific Gravity 1.011 (1.001-1.035)
== END | disposition home or self-care (01) ==
LOC: LAB 11:36
PROVIDERS: ATTEND Internal Medicine Cardiovascular Disease
DX: N39.0 Urinary tract infection, site not specified (principal)
CPT/HCPCS: 81003; 87086; 87088; 87186

== ENCOUNTER 2019-10-01 15:36 | Emergency (ER) | payer MEDICARE, MEDICAID ==
[~2019-10-01] VITALS: Ht 149.9 cm; Wt 64.9 kg
[2019-10-01 15:45] VITALS: BP 120/53
== END 2019-10-01 18:48 | disposition home or self-care (01) ==
LOC: ER 15:36
DX: U07.1 COVID-19 (principal); I10 Essential (primary) hypertension; I25.2 Old myocardial infarction; E11.9 Type 2 diabetes mellitus without complications; M19.90 Unspecified osteoarthritis, unspecified site; Z90.49 Acquired absence of other specified parts of digestive tract; Z90.89 Acquired absence of other organs; Z88.6 Allergy status to analgesic agent
CPT/HCPCS: 71045; 87635

== ENCOUNTER 2019-12-31 17:29 | Inpatient (IN) | payer MEDICARE, MEDICAID ==
[~2019-12-31] VITALS: Ht 149.9 cm; Wt 69.1 kg
[2019-12-31 18:34] LABS: Basophils # (auto) 0.1 10 ^3/uL (0-0.2); Basophils % (auto) 1.4 % (0.0-2.0); Eosinophils # (auto) 0.6 10 ^3/uL (0-0.8); Eosinophils % (auto) 6.9 % (0.0-7.0); Hematocrit 28.2 % (36.0-46.0); Hemoglobin 9.4 g/dL (12.2-16.2); Lymphocytes % (auto) 32.6 % (10.0-50.0); Mean Corpuscular Hemoglobin 31.1 pg (28.0-32.0); Mean Corpuscular Hgb Conc. 33.2 g/dL (32.0-36.0); Mean Corpuscular Volume 93.6 fL (80.0-100.0); Monocytes % (auto) 11.2 % (0.0-12.0); Neutrophils # (auto) 4.5 10 ^3/uL (1.6-8.6); Neutrophils % (auto) 47.9 % (37.0-80.0); Nucleated Red Blood Cells % 0.2 %; Platelet Count (auto) 289 10^3/uL (140-450); Red Blood Cells 3.01 10^6/uL (4.0-5.20); Red Cell Distribution Width 15.6 % (11.8-14.3); White Blood Cell 9.4 10^3/uL (4.4-10.8)
[2019-12-31 18:47] LABS: Alanine Aminotransferase 42 U/L (13-56); Albumin 2.8 g/dL (3.4-5.0); Anion Gap 5 (5-15); Aspartate Aminotransferase 48 U/L (15-37); BUN/Creatinine Ratio 14.8; Blood Urea Nitrogen 8 mg/dL (7-18); Carbon Dioxide 29 mmol/L (21-32); Chloride 103 mmol/L (98-107); GFR African American 143 mL/min; GFR Non-African American 118 mL/min; Glucose 114 mg/dL (74-106); Magnesium 2.2 mg/dL (1.6-2.6); Potassium 4.3 mmol/L (3.5-5.1); Sodium 137 mmol/L (136-145)
[2019-12-31 18:51] LABS: Alkaline Phosphatase 68 U/L (45-117); Bilirubin, Total 0.3 mg/dL (0.2-1.0); Total Protein 6.3 g/dL (6.4-8.2)
[2019-12-31 19:06] LABS: INR 1.05 (0.9-1.15); Partial Thromboplastin Time 30.1 sec (23.0-31.2)
[2019-12-31] MEDS ORDERED: DOXYCYCLINE 100MG/250ML 250 ML IV ONE (20:30)
[2019-12-31] MEDS ORDERED: DexAMETHasone SOD PHOS 10MG/1ML VIAL INJ IV ONE (20:30)
[2019-12-31] MEDS ORDERED: NITROGLYCERIN 0.4 MG SL TAB SL PRN (22:00)
[2019-12-31] MEDS ORDERED: MORPHINE SULF INJ 2 MG/ML SYRINGE 1ML IV PRN (22:00)
[2019-12-31] MEDS ORDERED: DEXTROSE (50%) 50ML SYRG IV PRN (22:00)
[2019-12-31 22:18] VITALS: BP 115/52
[2019-12-31] MEDS: ATORVASTATIN 20 MG TAB PO SCH (22:37)
[2019-12-31] MEDS: ACCU-CHEK COMFORT CURVE STRIP VI SCH (22:54)
[2019-12-31] MEDS: InsuLIN REG 1unit/0.01ml Soln (100units/ml) SC SCH (22:54)
--- NOTE | 2020-01-01 | NUR ---
Telemetry admit from [facility] admitted to Telemetry unit after SBAR received. Patient oriented to MARCELINO KRISHNA RN primary RN, unit, room, bed, and unit policies regarding patient care and visiting hours. Patient now on continuous telemetry monitoring, tele box #8 and telemetry reading on arrival to unit is Sinus Rhythm at 78BPM. Patient placed on bedside oxygen, weighed by bedscale and encouraged to call if they need something. All questions and concerns addressed, patient verbalized understanding.
--- NOTE | 2020-01-01 | NUR ---
Patient states she is incontinent of bowel and urine, bedrest at this time because of weakness but patient is able to aid in turning and repositioning. No distress noted, patient is on 8L mask saturating at 98%. Will monitor
--- NOTE | 2020-01-01 00:03 | NUR ---
Respiratory note: SCHEDULED MED NEB TX HELD AT THIS TIME DUE TO PENDING COVID TEST RESULTS. PT IN NO RESPIRATORY DISTRESS, WILL CONTINUE TO MONITOR.
[2020-01-01 01:27] VITALS: BP 147/82
--- NOTE | 2020-01-01 04:50 | NUR ---
Complete bed changed done. Patient is incontinent for bladder and soaked the bed. Cleansed jennifer area and changed gown. Patient tolerated well.
[2020-01-01 05:26] VITALS: BP 132/60
[2020-01-01] MEDS: LEVALBUTEROL HCL 1.25 MG/3 ML NEB NEB SCH ×4 (06:00→19:16)
[2020-01-01] MEDS: ACCU-CHEK COMFORT CURVE STRIP VI SCH ×4 (06:21→21:50)
[2020-01-01] MEDS: LEVOTHYROXINE SODIUM 50 MCG TAB PO SCH (06:21)
[2020-01-01] MEDS: InsuLIN REG 1unit/0.01ml Soln (100units/ml) SC SCH ×4 (06:23→21:50)
[2020-01-01] MEDS: metFORMIN HYDROCHLORIDE 500 MG TAB PO SCH (08:18)
[2020-01-01] MEDS: ASPirin 81 mg TAB PO SCH (09:14)
[2020-01-01] MEDS: BACLOFEN 10 MG TAB PO SCH ×2 (09:14→22:08)
[2020-01-01] MEDS: methylPREDNISolone SOD SUCC 40 MG/ML VL IV SCH ×3 (09:14→22:08)
[2020-01-01] MEDS: FAMOTIDINE 20 MG TAB PO SCH (09:14)
[2020-01-01 09:15] VITALS: BP 146/76
[2020-01-01] MEDS: CHOLECALCIFEROL (VITD3) 1,000UNIT=25mCg TAB PO SCH (09:15)
[2020-01-01] MEDS: LOSARTAN POTASSIUM 50 MG TAB PO SCH (09:15)
[2020-01-01] MEDS: CITALOPRAM HYDROBR 20 MG TAB PO SCH (09:16)
[2020-01-01] MEDS ORDERED: ERGOCALCIFEROL 50,000 UNIT(1.25MG) CAP PO SCH (10:00)
--- NOTE | 2020-01-01 11:00 | NUR ---
WOUND CARE NOTE: WOUND CARE IN TO SEE PATIENT PER WOUND CARE REQUEST. [facility] BEDSIDE NURSE NOTED SKIN INTEGRITY ISSUE UPON ADMISSION. PHOTOGRAPH TAKEN AT THAT TIME FOR REFERENCE. PATIENT NOTED TO HAVE A STAGE 2 PRESSURE INJURY WITH OPEN DRIED BLISTER TO THE SACRUM. PATIENT RAMA SCORE IS 12. WOUND CLEANSED WITH NORMAL SALINE, PATTED DRY, ZGUARD APPLIED, COVERED WITH OPTIFOAM GENTLE SACRAL DRESSING. RECOMMEND: FREQUENT Q2HOUR REPOSITIONING CONDITION PERMITS. REDISTRIBUTE PRESSURE UTILIZING PILLOWS AND WEDGES. BID/PRN DRESSING CHANGE TO SACRUM. DIETARY CONSULT. SKIN/WOUND CARE PLAN. CONTINUED MONITORING BY WOUND CARE TEAM. Addendum: 01/01/20 at 1455 by JAVI GARCIA RN RN Amended: Links added.
[2020-01-01 14:15] VITALS: BP 132/58
[2020-01-01 17:00] VITALS: BP 121/58
--- NOTE | 2020-01-01 19:55 | NUR ---
Opening Shift Note Assumed care of patient, awake and alert. No S/S of distress/SOB or pain. Instructed on POC and to call for assist PRN, will continue to monitor for changes Q1hr and PRN. Patient made aware of transferring to [place] unit.
--- NOTE | 2020-01-01 20:30 | NUR ---
Report/SBAR Report given to MAINOR Valdes.
--- NOTE | 2020-01-01 20:40 | NUR ---
Transferred Patient transferred via wheelchair, no status change. Patient tolerated well.
--- NOTE | 2020-01-01 20:45 | NUR ---
transferred from [facility], patient was covid negative. Patient did well on transfer. New tele box requested. Will continue to monitor patient.
--- NOTE | 2020-01-01 21:52 | NUR ---
Patient stated that she does not take insulin at night as she states she will drop. Patient had blood sugar of 171mg/dl, patient refused insulin at this time. Will continue to monitor patient.
[2020-01-01 22:00] VITALS: BP 129/63
[2020-01-01] MEDS: ATORVASTATIN 20 MG TAB PO SCH (22:08)
--- NOTE | 2020-01-01 22:40 | NUR ---
Specialty mattress delivered for patient per wound care nurse consult. will transfer patient to new mattress.
--- NOTE | 2020-01-01 23:30 | NUR ---
Patient transferred to specialty mattress. Patient tolerated the transfer well. Will continue to monitor patient.
[2020-01-02] MEDS: LEVALBUTEROL HCL 1.25 MG/3 ML NEB NEB SCH ×4 (01:09→20:02)
[2020-01-02 05:00] VITALS: BP 117/57
[2020-01-02] MEDS: ACCU-CHEK COMFORT CURVE STRIP VI SCH ×4 (06:23→22:08)
[2020-01-02] MEDS: methylPREDNISolone SOD SUCC 40 MG/ML VL IV SCH ×3 (06:23→22:07)
[2020-01-02] MEDS: InsuLIN REG 1unit/0.01ml Soln (100units/ml) SC SCH ×4 (06:23→22:00)
[2020-01-02] MEDS: LEVOTHYROXINE SODIUM 50 MCG TAB PO SCH (06:23)
[2020-01-02] MEDS: metFORMIN HYDROCHLORIDE 500 MG TAB PO SCH (07:52)
--- NOTE | 2020-01-02 08:00 | NUR ---
RECEIVED PATIENT ALERT AND ORIENTED X4, NOT IN DISTRESS, WHEEZING SOUNDS IN BILATERAL LUNG LOBES, RR=20 LCW=095 WITH 6 L NC, DEEP BREATHING AND COUGHING ENCOURAGED, DEMONSTRATED AND VERBALIZED UNDERSTANDING WELL, SR R=68 ON TELE MONITOR, DENIED CHEST PAIN AND SOB, ABDOMEN SOFT WITH ACTIVE BS, LAST BM=01/01/20 REPORTED, SACRAL STAGE 2 WOUND COVERED WITH DRY AND INTACT OPTI FOAM, RADIAL AND PEDAL PULSES PALPABLE, CAP REFILL <3 SECONDS, DENIED PAIN, RESTING ON BED, HEAD OF BED ELEVATED, BED ON LOW POSTION, RAILS UP X2, CALL LIGHT ON REACH, PENDING PT, WILL CONTINUE MONITORING.
[2020-01-02 09:00] VITALS: BP 128/63
[2020-01-02] MEDS: ASPirin 81 mg TAB PO SCH (10:03)
[2020-01-02] MEDS: CITALOPRAM HYDROBR 20 MG TAB PO SCH (10:03)
[2020-01-02] MEDS: LOSARTAN POTASSIUM 50 MG TAB PO SCH (10:04)
[2020-01-02] MEDS: BACLOFEN 10 MG TAB PO SCH ×2 (10:04→22:07)
[2020-01-02] MEDS: CHOLECALCIFEROL (VITD3) 1,000UNIT=25mCg TAB PO SCH (10:05)
[2020-01-02] MEDS: FAMOTIDINE 20 MG TAB PO SCH (10:05)
--- NOTE | 2020-01-02 11:00 | NUR ---
OUT OF BED USING WALKER WITH PT, AMBULATED AROUND THE UNIT X1, BACK TO BED, TOLERATED WELL, RESTING ON BED, NOT IN DISTRESS, DENIED PAIN.
[2020-01-02 13:00] VITALS: BP 139/83
--- NOTE | 2020-01-02 14:45 | NUR ---
Nutrition Assessment/consult Note please see attached link for complete assessment Est Energy needs BW 54 k-1350kcals (23-25 kcal/kgBW), Est Protein needs: 54-70 gms/day (1.0-1.3 gm/kgBW r/t wounds). Will continue to monitor and reassess prn. Addendum: 01/02/20 at [address] Amended: Links added.
[2020-01-02 16:56] VITALS: BP 130/66
--- NOTE | 2020-01-02 17:00 | NUR ---
SACRAL WOUND DRESSING WAS CHANGED ORDERED, TOLERATED WELL, POSITION CHANGED Q 2 HOURS, SKIN KEEP CLEAN AND DRY, WILL CONTINUE MONITORING.
--- NOTE | 2020-01-02 19:25 | NUR ---
RESTING ON BED, NOT IN DISTRESS, REPORT WAS GIVEN TO THE BULLDOZER OPERATOR RN.
--- NOTE | 2020-01-02 19:30 | NUR ---
Opening Shift Note Assumed care of patient, awake and alert. No S/S of distress/SOB or pain. Instructed on POC and to call for assist PRN, will continue to monitor for changes Q1hr and PRN. Patient in the lowest possible position with call light within reach. Patient told to call when she needs to use the bathroom for immediate changes to minimize skin breakdown. Dressing c/d/i.
[2020-01-02 22:00] VITALS: BP 128/60
--- NOTE | 2020-01-02 22:00 | NUR ---
Patient stated that she drops at night and does not like to take insulin if she is not too high. Patient was 184 requiring 3 units of insulin, patient refused insulin at this time.
[2020-01-02] MEDS: ATORVASTATIN 20 MG TAB PO SCH (22:07)
[2020-01-03] MEDS: LEVALBUTEROL HCL 1.25 MG/3 ML NEB NEB SCH ×4 (00:18→17:37)
--- NOTE | 2020-01-03 02:14 | NUR ---
PATIENT BEING TURNED Q2H AND ON A SPECIALTY MATTRESS BED. DRESSING BEING CHANGED BID AND PRN. Addendum: 01/03/20 at 0215 by iGlda Oliveira RN Amended: Links added.
[2020-01-03 05:00] VITALS: BP 144/62
--- NOTE | 2020-01-03 06:00 | NUR ---
DRESSING CHANGED PATIENT HAS PRESSURE ULCERS TO HER SACRUM, SACRUM CLEANED, Z GUARD APPLIED AND NEW DRESSING APPLIED. SACRUM C/D/I.
[2020-01-03] MEDS: methylPREDNISolone SOD SUCC 40 MG/ML VL IV SCH ×3 (06:20→21:12)
[2020-01-03] MEDS: ACCU-CHEK COMFORT CURVE STRIP VI SCH ×4 (06:20→21:23)
[2020-01-03] MEDS: InsuLIN REG 1unit/0.01ml Soln (100units/ml) SC SCH ×4 (06:21→21:18)
[2020-01-03] MEDS: LEVOTHYROXINE SODIUM 50 MCG TAB PO SCH (06:21)
--- NOTE | 2020-01-03 07:40 | NUR ---
Received patient alert and orient x4, wheezing sounds in bilateral lung lobes, RR=16 sat=95%, deep breathing and coughing encouraged, demonstrated and verbalized understanding, no s/s of sob and chest pain, abdomen soft with active BS, incontinent, keep skin clean and dry, stage II sacrum pressure ulcer covered with dry and intact Optifoam dressing, radial and pedal pulses palpable, resting on bed, head of bed elevated, bed on low position, rails up x2, call light on reach, will continue monitoring.
[2020-01-03 08:57] VITALS: BP 140/68
[2020-01-03] MEDS: ASPirin 81 mg TAB PO SCH (10:00)
[2020-01-03] MEDS: metFORMIN HYDROCHLORIDE 500 MG TAB PO SCH (10:00)
--- NOTE | 2020-01-03 10:00 | NUR ---
ENCOURAGED OUT OF BED TO THE CHAIR, REFUSED, RANGE OF MOTION EXERCISE PROVIDED, TOLERATED WILL, RESTING ON BED, NOT IN DISTRESS, DENIED PAIN, WILL CONTINUE MONITORING.
[2020-01-03] MEDS: CHOLECALCIFEROL (VITD3) 1,000UNIT=25mCg TAB PO SCH (10:01)
[2020-01-03] MEDS: CITALOPRAM HYDROBR 20 MG TAB PO SCH (10:01)
[2020-01-03] MEDS: BACLOFEN 10 MG TAB PO SCH ×2 (10:01→21:18)
[2020-01-03] MEDS: LOSARTAN POTASSIUM 50 MG TAB PO SCH (10:01)
[2020-01-03] MEDS: FAMOTIDINE 20 MG TAB PO SCH (10:01)
[2020-01-03 13:00] VITALS: BP 135/67
--- NOTE | 2020-01-03 16:53 | NUR ---
NOT IN DISTRESS, DENIED PAIN, RESTING ON BED, RT. AC IV SITE DRESSING AND SACRUM ULCER WOUND DRESSING PROVIDED WELL, PARTIAL BED BATH AND FULL CHARLEY CHANGE PROVIDED, COOPERATED AND TOLERATED WELL, BED MOLINA PROVIDED REQUESTED X5, CLEAR YELLOW URINE OUT PUT X 4 NOTED, WILL CONTINUE MONITORING.
[2020-01-03 16:56] VITALS: BP 143/66
[2020-01-03 18:49] VITALS: BP 143/66
--- NOTE | 2020-01-03 19:40 | NUR ---
NOT IN DISTRESS, DENIED PAIN, RESTING ON BED, REPORT WAS GIVEN TO THE FLOOR LAYER APPRENTICE RN.
--- NOTE | 2020-01-03 20:03 | NUR ---
Opening Shift Note Assumed care of patient from Ileana RN, patient awake and alert. Patient on 6L N/C oxygen saturation 94% No S/S of distress/SOB or pain. Bed locked in lowest position, side rails up X2, call light within reach. Instructed on POC and to call for assist PRN, will continue to monitor for changes Q1hr and PRN.
[2020-01-03] MEDS: ATORVASTATIN 20 MG TAB PO SCH (21:18)
[2020-01-03 22:00] VITALS: BP 109/61
--- NOTE | 2020-01-03 22:50 | NUR ---
IV removal IV right AC DC'd with clean sterile technique, catheter fully intact. Pressure dressing applied to site. Patient tolerated well.
--- NOTE | 2020-01-03 23:00 | NUR ---
IV insertion IV access obtained, via clean sterile technique by inserting 22 gauge catheter at right arm after 2 attempts. IV secured properly. No trauma to site. Patient tolerated procedure well.
[2020-01-04] MEDS: LEVALBUTEROL HCL 1.25 MG/3 ML NEB NEB SCH ×4 (00:25→18:59)
[2020-01-04 05:00] VITALS: BP 150/68
[2020-01-04] MEDS: LEVOTHYROXINE SODIUM 50 MCG TAB PO SCH (05:01)
[2020-01-04] MEDS: methylPREDNISolone SOD SUCC 40 MG/ML VL IV SCH ×3 (05:01→20:47)
[2020-01-04] MEDS: InsuLIN REG 1unit/0.01ml Soln (100units/ml) SC SCH ×4 (05:04→20:55)
[2020-01-04] MEDS: ACCU-CHEK COMFORT CURVE STRIP VI SCH ×4 (05:05→20:55)
--- NOTE | 2020-01-04 07:20 | NUR ---
Endorsed care to Clark HAYWARD. Patient asleep in bed, locked in lowest position, side rails up X2, call light within reach. Patient on 6L oxygen, No signs of SOB or distress.
--- NOTE | 2020-01-04 07:47 | NUR ---
PT. FOUND ON 5LPM NC, SPO2 99%. DECREASED TO 3LPM NC. Addendum: 01/04/20 at 0920 by Lolita Hernandez RT Amended: Links added.
[2020-01-04] MEDS: metFORMIN HYDROCHLORIDE 500 MG TAB PO SCH (07:54)
[2020-01-04 08:36] VITALS: BP 139/64
[2020-01-04] MEDS: ASPirin 81 mg TAB PO SCH (09:29)
[2020-01-04] MEDS: LOSARTAN POTASSIUM 50 MG TAB PO SCH (09:30)
[2020-01-04] MEDS: CITALOPRAM HYDROBR 20 MG TAB PO SCH (09:31)
[2020-01-04] MEDS: BACLOFEN 10 MG TAB PO SCH ×2 (09:32→20:45)
[2020-01-04] MEDS: CHOLECALCIFEROL (VITD3) 1,000UNIT=25mCg TAB PO SCH (09:32)
[2020-01-04] MEDS: FAMOTIDINE 20 MG TAB PO SCH (09:32)
[2020-01-04 12:34] VITALS: BP 137/66
[2020-01-04 16:35] VITALS: BP 150/77
--- NOTE | 2020-01-04 19:08 | NUR ---
Opening Shift Note Assumed care of patient from day shift Clark RN. Patient awake and alert with no S/S of distress/SOB or pain. Patient on 3L N/C oxygen saturation 96%. Bed locked in lowest position, side rails up X2, call light within reach. Instructed on POC and to call for assist PRN, will continue to monitor for changes Q1hr and PRN.
[2020-01-04] MEDS: ATORVASTATIN 20 MG TAB PO SCH (20:45)
[2020-01-04 21:48] VITALS: BP 125/62
--- NOTE | 2020-01-04 22:00 | NUR ---
PATIENT HAD A SMALL, SOFT, LOOSE BOWEL MOVEMENT. CHUX CHANGED ALONG WITH SACRAL OPTIFOAM.
--- NOTE | 2020-01-05 00:52 | NUR ---
PATIENT TURNING Q2, UTILIZING PILLOW WEDGE.
[2020-01-05 05:00] VITALS: BP 129/75
[2020-01-05] MEDS: InsuLIN REG 1unit/0.01ml Soln (100units/ml) SC SCH ×4 (05:20→21:10)
[2020-01-05] MEDS: ACCU-CHEK COMFORT CURVE STRIP VI SCH ×4 (05:20→21:10)
[2020-01-05] MEDS: methylPREDNISolone SOD SUCC 40 MG/ML VL IV SCH ×3 (05:41→21:05)
[2020-01-05] MEDS: LEVOTHYROXINE SODIUM 50 MCG TAB PO SCH (05:41)
[2020-01-05] MEDS: LEVALBUTEROL HCL 1.25 MG/3 ML NEB NEB SCH ×4 (06:18→18:22)
--- NOTE | 2020-01-05 07:05 | NUR ---
CLOSING NOTE CARE ENDORSED TO RAPHAEL HAYWARD. PATIENT RESTING IN BED LOCKED IN LOWEST POSITION, SIDE RAILS UP X2, CALL LIGHT WITHIN REACH. NO SIGNS OF SOB OR DISTRESS.
[2020-01-05] MEDS: metFORMIN HYDROCHLORIDE 500 MG TAB PO SCH (07:32)
[2020-01-05 08:33] VITALS: BP 136/72
[2020-01-05] MEDS: CHOLECALCIFEROL (VITD3) 1,000UNIT=25mCg TAB PO SCH (10:34)
[2020-01-05] MEDS: LOSARTAN POTASSIUM 50 MG TAB PO SCH (10:34)
[2020-01-05] MEDS: CITALOPRAM HYDROBR 20 MG TAB PO SCH (10:34)
[2020-01-05] MEDS: BACLOFEN 10 MG TAB PO SCH ×2 (10:35→21:05)
[2020-01-05] MEDS: ASPirin 81 mg TAB PO SCH (10:35)
[2020-01-05] MEDS: FAMOTIDINE 20 MG TAB PO SCH (10:35)
[2020-01-05 12:31] VITALS: BP 137/67
--- NOTE | 2020-01-05 14:34 | NUR ---
Nutrition Followup Notes Wt: 69.5 kg Pt was sleeping with no family by bedside. per pt records pt with PNA. pt with no distress noted currently on cardiac diet with adequate PO of 75% x 4 per RN doc Est Energy needs BW 54 k-1350kcals (23-25 kcal/kgBW), Est Protein needs: 54-70 gms/day (1.0-1.3 gm/kgBW r/t wounds). Will continue to monitor and reassess prn. LABS: No new labs today POC GLU 309 H GI: Pt had 1 BM today per RN doc BS: 13 mod risk. Refer to wound assessment report for full details. PES: Altered nutrition related lab values r.t current chronic medical condition and mod hypoalb hypoglycemia Comments: Will continue to monitor PO status, skin status, pertinent labs and weight trends. Will f/u in 3-5 days. 1) Consider MVI/C bid. 2) Continue current plan of care
[2020-01-05 16:31] VITALS: BP 134/67
--- NOTE | 2020-01-05 19:13 | NUR ---
Opening Shift Note Assumed care of patient, awake and alert. No S/S of distress/SOB or pain. Bed locked in lowest position, side rails up X2, call light within reach. Instructed on POC and to call for assist PRN, will continue to monitor for changes Q1hr and PRN.
[2020-01-05] MEDS: ATORVASTATIN 20 MG TAB PO SCH (21:05)
[2020-01-05 21:42] VITALS: BP 146/63
[2020-01-06] MEDS: LEVALBUTEROL HCL 1.25 MG/3 ML NEB NEB SCH ×4 (00:16→19:11)
[2020-01-06] MEDS: methylPREDNISolone SOD SUCC 40 MG/ML VL IV SCH ×3 (05:03→21:44)
[2020-01-06 05:14] VITALS: BP 140/65
[2020-01-06] MEDS: ACCU-CHEK COMFORT CURVE STRIP VI SCH ×4 (05:56→21:47)
[2020-01-06] MEDS: LEVOTHYROXINE SODIUM 50 MCG TAB PO SCH (05:56)
[2020-01-06] MEDS: InsuLIN REG 1unit/0.01ml Soln (100units/ml) SC SCH ×4 (05:58→21:46)
--- NOTE | 2020-01-06 07:30 | NUR ---
CLOSING NOTES CARE ENDORSED TO CINTHYA HAYWARD. PATIENT RESTING IN BED ON N/C, NO SIGNS OF DISTRESS OR SOB. SIDE RAILS UP X2, BED LOCKED IN LOWEST POSITION, SIDE RAILS UP X2, CALL LIGHT WITHIN REACH.
[2020-01-06] MEDS: metFORMIN HYDROCHLORIDE 500 MG TAB PO SCH (07:46)
[2020-01-06 08:44] VITALS: BP 148/70
[2020-01-06] MEDS: FAMOTIDINE 20 MG TAB PO SCH (10:04)
[2020-01-06] MEDS: CITALOPRAM HYDROBR 20 MG TAB PO SCH (10:05)
[2020-01-06] MEDS: BACLOFEN 10 MG TAB PO SCH ×2 (10:05→21:45)
[2020-01-06] MEDS: CHOLECALCIFEROL (VITD3) 1,000UNIT=25mCg TAB PO SCH (10:05)
[2020-01-06] MEDS: ASPirin 81 mg TAB PO SCH (10:05)
[2020-01-06] MEDS: LOSARTAN POTASSIUM 50 MG TAB PO SCH (11:44)
[2020-01-06 11:53] VITALS: BP 141/71
[2020-01-06 17:00] VITALS: BP 154/78
[2020-01-06 20:00] VITALS: BP 148/70
[2020-01-06 21:42] VITALS: BP 129/64
[2020-01-06] MEDS: ATORVASTATIN 20 MG TAB PO SCH (21:44)
[2020-01-07] MEDS: LEVALBUTEROL HCL 1.25 MG/3 ML NEB NEB SCH ×4 (00:28→18:18)
[2020-01-07 02:38] VITALS: BP 129/64
[2020-01-07] MEDS: InsuLIN REG 1unit/0.01ml Soln (100units/ml) SC SCH ×4 (05:28→22:29)
[2020-01-07] MEDS: LEVOTHYROXINE SODIUM 50 MCG TAB PO SCH (05:31)
[2020-01-07] MEDS: methylPREDNISolone SOD SUCC 40 MG/ML VL IV SCH ×3 (05:31→22:17)
[2020-01-07] MEDS: ACCU-CHEK COMFORT CURVE STRIP VI SCH ×4 (05:31→22:05)
[2020-01-07 05:36] VITALS: BP 133/75
--- NOTE | 2020-01-07 06:15 | NUR ---
PT AWAKE WATCHING TELEVISION;SLEPT WELL THROUGHOUT THE NIGHT;STATES SHE WILL BE GOING HOME WEDNESDAY. NO C/O OF PAIN; CALL LIGHT IN REACH.
--- NOTE | 2020-01-07 07:30 | NUR ---
Opening Shift Note RECEIVED REPORT FROM NOC RN. Assumed care of patient, awake and alert. PATIENT ON OXYGEN AT 2 LPM VIA NASAL CANNULA WITH no S/S of distress/SOB or pain. BED IN LOWEST, LOCKED POSITION WITH SIDERAILS UP x2 AND CALL LIGHT WITHIN REACH. Instructed on POC and to call for assist PRN, will continue to monitor for changes Q1hr and PRN.
[2020-01-07] MEDS: metFORMIN HYDROCHLORIDE 500 MG TAB PO SCH (07:53)
[2020-01-07 08:30] VITALS: BP 130/70
[2020-01-07] MEDS: LOSARTAN POTASSIUM 50 MG TAB PO SCH (10:08)
[2020-01-07] MEDS: FAMOTIDINE 20 MG TAB PO SCH (10:08)
[2020-01-07] MEDS: CITALOPRAM HYDROBR 20 MG TAB PO SCH (10:08)
[2020-01-07] MEDS: ASPirin 81 mg TAB PO SCH (10:08)
[2020-01-07] MEDS: BACLOFEN 10 MG TAB PO SCH ×2 (10:08→22:16)
[2020-01-07] MEDS: CHOLECALCIFEROL (VITD3) 1,000UNIT=25mCg TAB PO SCH (10:09)
[2020-01-07 13:00] VITALS: BP 133/66
[2020-01-07 17:00] VITALS: BP 133/63
--- NOTE | 2020-01-07 18:18 | NUR ---
AT BEDSIDE FOR MED GREG LANDA.
--- NOTE | 2020-01-07 19:25 | NUR ---
Opening shift note Assumed care of patient from day shift RNSamuel. Patient A&Ox4, respirations even and non-labored with no s/s of distress or complaints at this time. Discussed POC with patient and the need to call for assistance to the bathroom, patient verbalized understanding. Bed alarm set at this time. Bed in lowest locked position with 2 side rails up, call light within reach. Will continue to monitor Q1hr and PRN.
[2020-01-07 22:00] VITALS: BP 137/62
[2020-01-07] MEDS: ATORVASTATIN 20 MG TAB PO SCH (22:16)
[2020-01-08] MEDS: LEVALBUTEROL HCL 1.25 MG/3 ML NEB NEB SCH ×3 (00:41→12:00)
--- NOTE | 2020-01-08 00:46 | NUR ---
AT BEDSIDE FOR MED GREG LANDA.
[2020-01-08 05:21] VITALS: BP 132/70
[2020-01-08] MEDS: ACCU-CHEK COMFORT CURVE STRIP VI SCH ×3 (06:11→16:53)
[2020-01-08] MEDS: methylPREDNISolone SOD SUCC 40 MG/ML VL IV SCH ×2 (06:11→14:03)
[2020-01-08] MEDS: LEVOTHYROXINE SODIUM 50 MCG TAB PO SCH (06:11)
[2020-01-08] MEDS: InsuLIN REG 1unit/0.01ml Soln (100units/ml) SC SCH ×3 (06:26→16:53)
--- NOTE | 2020-01-08 07:31 | NUR ---
OPENING SHIFT NOTES Assumed care of patient from restaurant shift leader RN. Patient is alert and orientedx4 no signs of distress noted, patient denies pain. Patient was updated on the plan of care and verbalized understanding. Patient is receiving O2 at 2L/min via nasal cannula, oxygen saturation is 95%. Walker noted at bedside. Patient is on a specialty mattress. Bed is locked, in the lowest position, side rails are up x2 and call light is in reach. Patient was encouraged to call for assistance as needed.
[2020-01-08] MEDS: metFORMIN HYDROCHLORIDE 500 MG TAB PO SCH (08:07)
[2020-01-08] MEDS: ASPirin 81 mg TAB PO SCH (09:45)
[2020-01-08] MEDS: CHOLECALCIFEROL (VITD3) 1,000UNIT=25mCg TAB PO SCH (09:46)
[2020-01-08] MEDS: FAMOTIDINE 20 MG TAB PO SCH (09:46)
[2020-01-08] MEDS: BACLOFEN 10 MG TAB PO SCH (09:46)
[2020-01-08] MEDS: CITALOPRAM HYDROBR 20 MG TAB PO SCH (09:46)
[2020-01-08] MEDS: LOSARTAN POTASSIUM 50 MG TAB PO SCH (09:46)
--- NOTE | 2020-01-08 11:55 | NUR ---
WOUND CARE NOTE: WOUND CARE IN TO REEVALUATE PATIENT FOR SKIN INTEGRITY ISSUE. PRESSURE INJURY TO SACRUM RESOLVING. NO OPEN AREAS. INTACT PINK COLLAGEN SCARRING. PATIENT RAMA SCORE IS 20. WOUND CLEANSED WITH NORMAL SALINE, PATTED DRY WITH STERILE GAUZE, APPLIED ZGUARD AND COVERED WITH OPTIFOAM GENTLE SACRAL DRESSING. PATIENT CONTINUES TO BE ON SPECIALTY AIR MATTRESS. RECOMMEND: CONTINUE WITH DRESSING CHANGES ORDER BY PHYSICIAN. REDISTRIBUTE PRESSURE UTILIZING PILLOWS AND WEDGES. CONTINUE SKIN/WOUND CARE PLAN. CONTINUED MONITORING BY WOUND CARE TEAM. Addendum: 01/08/20 at 1349 by JAVI GARCIA RN RN Amended: Links added.
[2020-01-08 12:51] VITALS: BP 146/73
[2020-01-08 14:45] VITALS: BP 146/73
--- NOTE | 2020-01-08 15:50 | NUR ---
assessment Patient is a 69 year old female who is alert and oriented. Patients cognitive abilities are intact. Prior to admission patient lived home with her daughter and functioned with assistance. Per patient she will return home to her prior living arrangements post discharge and will have transport home. Patient informed me she has a [facility] caregiver. Patients PCP is Dr Jordan. Patient is on service with [facility]. Patient has a ss consult for [facility]. Patient wants to resume with [facility]. MD order hs been sent to [facility]. Per Ana at [facility] she has accepted patient for resumption within 24 to 48 hours of discharge. I informed patient she has a right to speak to a social work lecturer regarding all care. I informed patient she has a right to participate in any and all discharge planning. Patient is aware of visiting hours on the hospital floor. I informed patient she has a right to privacy. Patient does not have a POA and advanced directive. I have offered patient information on POA and advanced directives. I informed the patient the advantages and benefits of having an Advanced Directive. Patient verbalized understanding and agreed to discharge plan. Addendum: 01/08/20 at 1552 by Ashely CASON Amended: Links added.
[2020-01-08 16:40] VITALS: BP 156/72
--- NOTE | 2020-01-08 18:26 | NUR ---
DISCHARGE Discharge instructions given as ordered. Encourage to follow up with PMD as instructed. All questions and concerns addressed. Patient verbalized understanding. Medication reconciliation form completed and copy given to patient. IV removed with catheter intact, pressure dressing applied, Telemetry unit returned to ICU. Patient taken to vehicle via wheelchair with all personal belongings, accompanied by staff. No distress noted at time of departure.
== END 2020-01-08 18:25 | disposition home health service (06) | DRG 193 ==
LOC: EDBD 17:29 → ER 17:29 → TELE-EAST 17:30 → TELE-WESTW 01-01 20:51
PROVIDERS: ADMIT Internal Medicine Cardiovascular Disease; ATTEND Internal Medicine Cardiovascular Disease
DX: J18.9 Pneumonia, unspecified organism (principal); J96.21 Acute and chronic respiratory failure with hypoxia; J44.0 Chronic obstructive pulmonary disease with (acute) lower respiratory infection; E11.40 Type 2 diabetes mellitus with diabetic neuropathy, unspecified; E11.21 Type 2 diabetes mellitus with diabetic nephropathy; D64.9 Anemia, unspecified; E03.9 Hypothyroidism, unspecified; M19.90 Unspecified osteoarthritis, unspecified site; I10 Essential (primary) hypertension; Z80.41 Family history of malignant neoplasm of ovary; I25.2 Old myocardial infarction; Z82.3 Family history of stroke; Z82.49 Family history of ischemic heart disease and other diseases of the circulatory system; Z83.3 Family history of diabetes mellitus; Z86.19 Personal history of other infectious and parasitic diseases; Z86.73 Personal history of transient ischemic attack (TIA), and cerebral infarction without residual deficits; Z90.49 Acquired absence of other specified parts of digestive tract; Z79.899 Other long term (current) drug therapy; Z88.8 Allergy status to other drugs, medicaments and biological substances; Z20.828 Contact with and (suspected) exposure to other viral communicable diseases; Z88.1 Allergy status to other antibiotic agents
CPT/HCPCS: 36415; 71045; 80053; 82962; 83735; 83880; 84484; 85025; 85379; 85610; 85730; 87040; 87426; 93005; 94640; 97110; 97116; 97163; 97530; G0378; J1100; J1815; J3490

== ENCOUNTER → 2020-01-17 | Outpatient (CLI) | payer MEDICARE, MEDICAID | END | disposition home or self-care (01) | LOC: Rad HDHVI 13:05 | PROVIDERS: ATTEND Internal Medicine Cardiovascular Disease | DX: I70.0 Atherosclerosis of aorta (principal); M47.814 Spondylosis without myelopathy or radiculopathy, thoracic region; M19.011 Primary osteoarthritis, right shoulder; M19.012 Primary osteoarthritis, left shoulder; R06.02 Shortness of breath | CPT/HCPCS: 71046 ==

== ENCOUNTER → 2020-01-19 | Outpatient (CLI) | payer MEDICARE, MEDICAID | END | disposition home or self-care (01) | LOC: Rad HDHVI 11:12 | PROVIDERS: ATTEND Internal Medicine Cardiovascular Disease | DX: J47.9 Bronchiectasis, uncomplicated (principal); J21.9 Acute bronchiolitis, unspecified; J98.11 Atelectasis; M46.04 Spinal enthesopathy, thoracic region; J98.4 Other disorders of lung; I70.90 Unspecified atherosclerosis; R06.02 Shortness of breath; Z90.49 Acquired absence of other specified parts of digestive tract; Z88.5 Allergy status to narcotic agent | CPT/HCPCS: 71250 ==

== ENCOUNTER → 2020-01-24 | Outpatient (CLI) | payer MEDICARE, MEDICAID | END | disposition home or self-care (01) | LOC: Rad HDHVI 15:34 | PROVIDERS: ATTEND Internal Medicine Cardiovascular Disease | DX: M47.812 Spondylosis without myelopathy or radiculopathy, cervical region (principal); M47.814 Spondylosis without myelopathy or radiculopathy, thoracic region; M46.02 Spinal enthesopathy, cervical region; M85.88 Other specified disorders of bone density and structure, other site; M46.04 Spinal enthesopathy, thoracic region; M51.36 Other intervertebral disc degeneration, lumbar region; M43.16 Spondylolisthesis, lumbar region; M47.817 Spondylosis without myelopathy or radiculopathy, lumbosacral region; I70.0 Atherosclerosis of aorta | CPT/HCPCS: 72040; 72070; 72100 ==

== ENCOUNTER 2020-06-03 21:45 | Inpatient (IN) | payer MEDICARE, MEDICAID ==
[~2020-06-03] VITALS: Ht 152.4 cm; Wt 63.1 kg
[~2020-06-03 21:45] MED LIST changes: -ALEN1TAB32 PO; +ALEN70TA74 PO
[2020-06-03] MEDS ORDERED: DexAMETHasone SOD PHOS 10MG/1ML VIAL INJ IV ONE (22:30)
[2020-06-03 22:59] LABS: Basophils # (auto) 0.1 10 ^3/uL (0-0.2); Basophils % (auto) 0.7 % (0.0-2.0); Eosinophils # (auto) 0.5 10 ^3/uL (0-0.8); Eosinophils % (auto) 3.5 % (0.0-7.0); Hematocrit 35.6 % (36.0-46.0); Hemoglobin 12.1 g/dL (12.2-16.2); Lymphocytes # (auto) 2.3 10 ^3/uL (0.4-5.4); Lymphocytes % (auto) 16.7 % (10.0-50.0); Mean Corpuscular Hemoglobin 30.5 pg (28.0-32.0); Mean Corpuscular Volume 89.8 fL (80.0-100.0); Monocytes # (auto) 1.2 10 ^3/uL (0-1.3); Monocytes % (auto) 8.6 % (0.0-12.0); Neutrophils # (auto) 9.5 10 ^3/uL (1.6-8.6); Neutrophils % (auto) 70.5 % (37.0-80.0); Platelet Count (auto) 202 10^3/uL (140-450); Red Blood Cells 3.96 10^6/uL (4.0-5.20); Red Cell Distribution Width 13.5 % (11.8-14.3); White Blood Cell 13.5 10^3/uL (4.4-10.8)
[2020-06-03 23:18] LABS: Albumin 3.2 g/dL (3.4-5.0); Anion Gap 7 (5-15); Blood Urea Nitrogen 20 mg/dL (7-18); Calcium 8.9 mg/dL (8.5-10.1); Carbon Dioxide 27 mmol/L (21-32); Chloride 107 mmol/L (98-107); Glucose 169 mg/dL (74-106); Potassium 4.3 mmol/L (3.5-5.1); Sodium 141 mmol/L (136-145)
[2020-06-03 23:20] LABS: INR 0.97 (0.9-1.15); Partial Thromboplastin Time 26.8 sec (23.0-31.2)
[2020-06-03 23:24] LABS: Alanine Aminotransferase 34 U/L (13-56); Alkaline Phosphatase 82 U/L (45-117); Aspartate Aminotransferase 26 U/L (15-37); BUN/Creatinine Ratio 27.8; Bilirubin, Total 0.3 mg/dL (0.2-1.0); GFR African American 103 mL/min; GFR Non-African American 85 mL/min; Total Protein 7.4 g/dL (6.4-8.2)
[2020-06-04] MEDS ORDERED: IOPAMIDOL 76 % (ISOVUE-370) 100ML BTL IV ONE (02:25)
[2020-06-04 09:33] LABS: Urine Bacteria MOD /hpf (None Seen); Urine Blood Negative /uL (Negative); Urine Specific Gravity 1.043 (1.001-1.035); Urine WBC 1 /hpf (0 - 5)
[2020-06-04] MEDS ORDERED: NITROGLYCERIN 0.4 MG SL TAB SL PRN (09:45)
[2020-06-04] MEDS ORDERED: DEXTROSE (50%) 50ML SYRG IV PRN (09:45)
[2020-06-04] MEDS ORDERED: LEVOTHYROXINE SODIUM 25 MCG TAB PO ONE (09:45)
[2020-06-04] MEDS ORDERED: MORPHINE SULF INJ 2 MG/ML SYRINGE 1ML IV PRN (09:45)
[2020-06-04] MEDS: CITALOPRAM HYDROBR 20 MG TAB PO SCH (11:09)
[2020-06-04] MEDS: LOSARTAN POTASSIUM 50 MG TAB PO SCH ×2 (11:09→21:54)
[2020-06-04] MEDS: AZITHROMYCIN 500MG/ 250ML 250 ML IV SCH (11:09)
[2020-06-04] MEDS: FAMOTIDINE 20 MG TAB PO SCH (11:10)
[2020-06-04] MEDS: BACLOFEN 10 MG TAB PO SCH ×2 (11:10→21:54)
[2020-06-04] MEDS: CHOLECALCIFEROL (VITD3) 1,000UNIT=25mCg TAB PO SCH (11:10)
[2020-06-04] MEDS: ASPirin-EC 81 mg tab PO SCH (11:10)
[2020-06-04] MEDS: Fenofibrate 145MG TAB PO SCH (11:12)
[2020-06-04] MEDS: InsuLIN REG 1unit/0.01ml Soln (100units/ml) SC SCH ×3 (11:13→21:56)
[2020-06-04] MEDS: ACCU-CHEK COMFORT CURVE STRIP VI SCH ×3 (11:28→21:55)
[2020-06-04] MEDS: ALBUTEROL SULF 2.5 MG/0.5ML(0.5%) NEB SOLN NEB SCH ×2 (13:18→19:03)
[2020-06-04] MEDS: methylPREDNISolone SOD SUCC 125 MG/2 ML VL IV SCH ×2 (14:56→21:54)
[2020-06-04 16:12] VITALS: BP 116/49
[2020-06-04 21:00] VITALS: BP 116/49
[2020-06-04 21:54] VITALS: BP 139/61
[2020-06-04] MEDS: ATORVASTATIN 20 MG TAB PO SCH (21:55)
[2020-06-05 05:15] VITALS: BP 127/55
[2020-06-05] MEDS: ALBUTEROL SULF 2.5 MG/0.5ML(0.5%) NEB SOLN NEB SCH ×3 (06:02→19:39)
[2020-06-05] MEDS: methylPREDNISolone SOD SUCC 125 MG/2 ML VL IV SCH ×3 (06:42→21:29)
[2020-06-05] MEDS: LEVOTHYROXINE SODIUM 25 MCG TAB PO SCH (06:42)
[2020-06-05] MEDS: ACCU-CHEK COMFORT CURVE STRIP VI SCH ×4 (06:42→21:32)
[2020-06-05] MEDS: InsuLIN REG 1unit/0.01ml Soln (100units/ml) SC SCH ×4 (06:43→21:31)
[2020-06-05 09:00] VITALS: BP 117/48
[2020-06-05] MEDS: AZITHROMYCIN 500MG/ 250ML 250 ML IV SCH (09:32)
[2020-06-05] MEDS: BACLOFEN 10 MG TAB PO SCH ×2 (09:32→21:29)
[2020-06-05] MEDS: ASPirin-EC 81 mg tab PO SCH (09:35)
[2020-06-05] MEDS: LOSARTAN POTASSIUM 50 MG TAB PO SCH ×2 (09:35→21:34)
[2020-06-05] MEDS: FAMOTIDINE 20 MG TAB PO SCH (09:36)
[2020-06-05] MEDS: CITALOPRAM HYDROBR 20 MG TAB PO SCH (09:36)
[2020-06-05] MEDS: Fenofibrate 145MG TAB PO SCH (09:42)
[2020-06-05] MEDS: CHOLECALCIFEROL (VITD3) 1,000UNIT=25mCg TAB PO SCH (09:42)
[2020-06-05] MEDS: HYDROcodone-ACET 10/325MG TAB PO PRN (10:45)
[2020-06-05 13:00] VITALS: BP 137/58
[2020-06-05 16:42] VITALS: BP 129/70
[2020-06-05] MEDS: ATORVASTATIN 20 MG TAB PO SCH (21:29)
[2020-06-05 22:00] VITALS: BP 141/76
[2020-06-06] MEDS: ALBUTEROL SULF 2.5 MG/0.5ML(0.5%) NEB SOLN NEB SCH ×4 (00:01→19:18)
[2020-06-06 05:00] VITALS: BP 143/68
[2020-06-06] MEDS: methylPREDNISolone SOD SUCC 125 MG/2 ML VL IV SCH ×3 (05:34→21:52)
[2020-06-06] MEDS: InsuLIN REG 1unit/0.01ml Soln (100units/ml) SC SCH ×4 (06:06→21:58)
[2020-06-06] MEDS: ACCU-CHEK COMFORT CURVE STRIP VI SCH ×4 (06:07→22:41)
[2020-06-06] MEDS: LEVOTHYROXINE SODIUM 25 MCG TAB PO SCH (06:08)
[2020-06-06 09:00] VITALS: BP 137/70
[2020-06-06] MEDS: BACLOFEN 10 MG TAB PO SCH ×2 (09:51→22:41)
[2020-06-06] MEDS: CITALOPRAM HYDROBR 20 MG TAB PO SCH (09:51)
[2020-06-06] MEDS: LOSARTAN POTASSIUM 50 MG TAB PO SCH ×2 (09:52→22:42)
[2020-06-06] MEDS: Fenofibrate 145MG TAB PO SCH (10:00)
[2020-06-06] MEDS: ASPirin-EC 81 mg tab PO SCH (10:10)
[2020-06-06] MEDS: AZITHROMYCIN 500MG/ 250ML 250 ML IV SCH (10:11)
[2020-06-06] MEDS: CHOLECALCIFEROL (VITD3) 1,000UNIT=25mCg TAB PO SCH (10:11)
[2020-06-06] MEDS: FAMOTIDINE 20 MG TAB PO SCH (10:11)
[2020-06-06 13:00] VITALS: BP 143/74
[2020-06-06 16:38] VITALS: BP 138/64
[2020-06-06] MEDS: HYDROcodone-ACET 10/325MG TAB PO PRN (21:52)
[2020-06-06] MEDS: ATORVASTATIN 20 MG TAB PO SCH (22:41)
[2020-06-06 22:43] VITALS: BP 131/59
[2020-06-07 05:00] VITALS: BP 131/64
[2020-06-07] MEDS: LEVOTHYROXINE SODIUM 25 MCG TAB PO SCH (06:11)
[2020-06-07] MEDS: methylPREDNISolone SOD SUCC 125 MG/2 ML VL IV SCH ×2 (06:11→14:06)
[2020-06-07] MEDS: ACCU-CHEK COMFORT CURVE STRIP VI SCH ×3 (06:12→17:50)
[2020-06-07] MEDS: InsuLIN REG 1unit/0.01ml Soln (100units/ml) SC SCH ×3 (06:16→17:50)
[2020-06-07] MEDS: ALBUTEROL SULF 2.5 MG/0.5ML(0.5%) NEB SOLN NEB SCH ×3 (06:25→17:51)
[2020-06-07] MEDS: AZITHROMYCIN 500MG/ 250ML 250 ML IV SCH (10:00)
[2020-06-07] MEDS: Fenofibrate 145MG TAB PO SCH (10:00)
[2020-06-07] MEDS: CITALOPRAM HYDROBR 20 MG TAB PO SCH (10:01)
[2020-06-07] MEDS: LOSARTAN POTASSIUM 50 MG TAB PO SCH (10:01)
[2020-06-07] MEDS: ASPirin-EC 81 mg tab PO SCH (10:01)
[2020-06-07] MEDS: BACLOFEN 10 MG TAB PO SCH (10:02)
[2020-06-07] MEDS: FAMOTIDINE 20 MG TAB PO SCH (10:02)
[2020-06-07] MEDS: CHOLECALCIFEROL (VITD3) 1,000UNIT=25mCg TAB PO SCH (10:02)
[2020-06-07] MEDS: HYDROcodone-ACET 10/325MG TAB PO PRN (10:07)
[2020-06-07 10:31] VITALS: BP 126/70
[2020-06-07 13:00] VITALS: BP 160/80
[2020-06-07 16:51] VITALS: BP 148/68
[2020-06-07 21:00] VITALS: BP 187/82
[2020-06-07 23:14] VITALS: BP 187/82
[2020-06-08] VITALS (7 sets, daily range): BP systolic 141–180; BP diastolic 58–79
[2020-06-08] MEDS: LOSARTAN POTASSIUM 50 MG TAB PO SCH ×3 (00:37→21:44)
[2020-06-08] MEDS: methylPREDNISolone SOD SUCC 125 MG/2 ML VL IV SCH ×4 (00:37→21:43)
[2020-06-08] MEDS: BACLOFEN 10 MG TAB PO SCH ×3 (00:38→21:44)
[2020-06-08] MEDS: ATORVASTATIN 20 MG TAB PO SCH ×2 (00:38→21:44)
[2020-06-08] MEDS: ACCU-CHEK COMFORT CURVE STRIP VI SCH ×5 (00:38→21:44)
[2020-06-08] MEDS: InsuLIN REG 1unit/0.01ml Soln (100units/ml) SC SCH ×5 (00:39→21:47)
[2020-06-08] MEDS: ALBUTEROL SULF 2.5 MG/0.5ML(0.5%) NEB SOLN NEB SCH ×3 (06:09→18:34)
[2020-06-08] MEDS: LEVOTHYROXINE SODIUM 25 MCG TAB PO SCH (07:18)
[2020-06-08] MEDS: HYDROcodone-ACET 10/325MG TAB PO PRN ×2 (09:26→19:58)
[2020-06-08] MEDS: Fenofibrate 145MG TAB PO SCH (10:00)
[2020-06-08] MEDS: AZITHROMYCIN 500MG/ 250ML 250 ML IV SCH (11:07)
[2020-06-08] MEDS: CITALOPRAM HYDROBR 20 MG TAB PO SCH (11:07)
[2020-06-08] MEDS: ASPirin-EC 81 mg tab PO SCH (11:08)
[2020-06-08] MEDS: CHOLECALCIFEROL (VITD3) 1,000UNIT=25mCg TAB PO SCH (11:08)
[2020-06-08] MEDS: FAMOTIDINE 20 MG TAB PO SCH (11:08)
[2020-06-09] VITALS (7 sets, daily range): BP systolic 128–155; BP diastolic 57–83
[2020-06-09] MEDS: methylPREDNISolone SOD SUCC 125 MG/2 ML VL IV SCH ×3 (06:00→22:00)
[2020-06-09] MEDS: ALBUTEROL SULF 2.5 MG/0.5ML(0.5%) NEB SOLN NEB SCH ×3 (06:25→18:51)
[2020-06-09] MEDS: LEVOTHYROXINE SODIUM 25 MCG TAB PO SCH (06:47)
[2020-06-09] MEDS: ACCU-CHEK COMFORT CURVE STRIP VI SCH ×4 (06:48→22:00)
[2020-06-09] MEDS: InsuLIN REG 1unit/0.01ml Soln (100units/ml) SC SCH ×4 (06:50→22:03)
[2020-06-09] MEDS: Fenofibrate 145MG TAB PO SCH (10:00)
[2020-06-09] MEDS: LOSARTAN POTASSIUM 50 MG TAB PO SCH ×2 (10:46→22:00)
[2020-06-09] MEDS: CITALOPRAM HYDROBR 20 MG TAB PO SCH (10:46)
[2020-06-09] MEDS: AZITHROMYCIN 500MG/ 250ML 250 ML IV SCH (10:46)
[2020-06-09] MEDS: BACLOFEN 10 MG TAB PO SCH ×2 (10:47→22:00)
[2020-06-09] MEDS: ASPirin-EC 81 mg tab PO SCH (10:47)
[2020-06-09] MEDS: CHOLECALCIFEROL (VITD3) 1,000UNIT=25mCg TAB PO SCH (10:47)
[2020-06-09] MEDS: FAMOTIDINE 20 MG TAB PO SCH (10:47)
[2020-06-09] MEDS: ATORVASTATIN 20 MG TAB PO SCH (22:00)
[2020-06-10 05:00] VITALS: BP 147/63
[2020-06-10] MEDS: ALBUTEROL SULF 2.5 MG/0.5ML(0.5%) NEB SOLN NEB SCH ×3 (06:08→19:11)
[2020-06-10] MEDS: methylPREDNISolone SOD SUCC 125 MG/2 ML VL IV SCH (06:15)
[2020-06-10] MEDS: ACCU-CHEK COMFORT CURVE STRIP VI SCH ×4 (06:24→22:53)
[2020-06-10] MEDS: InsuLIN REG 1unit/0.01ml Soln (100units/ml) SC SCH ×4 (06:39→22:58)
[2020-06-10] MEDS: LEVOTHYROXINE SODIUM 25 MCG TAB PO SCH (06:48)
[2020-06-10] MEDS: HYDROcodone-ACET 10/325MG TAB PO PRN ×2 (08:39→22:54)
[2020-06-10 09:02] VITALS: BP 152/61
[2020-06-10] MEDS: Fenofibrate 145MG TAB PO SCH (09:23)
[2020-06-10] MEDS: BACLOFEN 10 MG TAB PO SCH ×2 (09:58→22:53)
[2020-06-10] MEDS: CITALOPRAM HYDROBR 20 MG TAB PO SCH (09:58)
[2020-06-10] MEDS: LOSARTAN POTASSIUM 50 MG TAB PO SCH ×2 (09:59→22:52)
[2020-06-10] MEDS: FAMOTIDINE 20 MG TAB PO SCH (10:00)
[2020-06-10] MEDS: ASPirin-EC 81 mg tab PO SCH (10:01)
[2020-06-10] MEDS: CHOLECALCIFEROL (VITD3) 1,000UNIT=25mCg TAB PO SCH (10:02)
[2020-06-10] MEDS: predniSONE 20 MG TAB PO SCH (10:03)
[2020-06-10] MEDS: AZITHROMYCIN 500MG/ 250ML 250 ML IV SCH (10:06)
[2020-06-10 13:01] VITALS: BP 143/83
[2020-06-10 16:43] VITALS: BP 140/72
[2020-06-10 20:48] VITALS: BP 140/72
[2020-06-10 22:00] VITALS: BP 145/72
[2020-06-10] MEDS: ATORVASTATIN 20 MG TAB PO SCH (22:53)
[2020-06-11 04:55] VITALS: BP 147/75
[2020-06-11] MEDS: ALBUTEROL SULF 2.5 MG/0.5ML(0.5%) NEB SOLN NEB SCH ×2 (05:45→11:53)
[2020-06-11] MEDS: ACCU-CHEK COMFORT CURVE STRIP VI SCH ×2 (06:56→11:58)
[2020-06-11] MEDS: LEVOTHYROXINE SODIUM 25 MCG TAB PO SCH (06:56)
[2020-06-11] MEDS: InsuLIN REG 1unit/0.01ml Soln (100units/ml) SC SCH ×3 (06:57→12:09)
[2020-06-11 08:00] VITALS: BP 130/58
[2020-06-11 08:43] VITALS: BP 130/58
[2020-06-11] MEDS: AZITHROMYCIN 500MG/ 250ML 250 ML IV SCH (09:53)
[2020-06-11] MEDS: FAMOTIDINE 20 MG TAB PO SCH (09:53)
[2020-06-11] MEDS: CITALOPRAM HYDROBR 20 MG TAB PO SCH (09:53)
[2020-06-11] MEDS: predniSONE 20 MG TAB PO SCH (09:53)
[2020-06-11] MEDS: BACLOFEN 10 MG TAB PO SCH (09:54)
[2020-06-11] MEDS: CHOLECALCIFEROL (VITD3) 1,000UNIT=25mCg TAB PO SCH (09:54)
[2020-06-11] MEDS: ASPirin-EC 81 mg tab PO SCH (09:54)
[2020-06-11] MEDS: Fenofibrate 145MG TAB PO SCH (10:00)
[2020-06-11] MEDS: LOSARTAN POTASSIUM 50 MG TAB PO SCH (10:09)
[2020-06-11 13:05] VITALS: BP 137/73
[2020-06-11] MEDS ORDERED: PRE1T PO (14:16)
[2020-06-11] MEDS ORDERED: DOXY25SU3 OR (14:17)
[2020-06-11 15:10] VITALS: BP 123/82
== END 2020-06-11 16:25 | disposition home health service (06) | DRG 189 ==
LOC: EDBD 21:45 → ER 21:45 → TELE 21:46 → TELE-WESTW 06-04 15:41
PROVIDERS: ADMIT Internal Medicine Cardiovascular Disease; ATTEND Internal Medicine Cardiovascular Disease
DX: J96.21 Acute and chronic respiratory failure with hypoxia (principal); J45.909 Unspecified asthma, uncomplicated; I11.0 Hypertensive heart disease with heart failure; Z20.822 Contact with and (suspected) exposure to COVID-19; M19.90 Unspecified osteoarthritis, unspecified site; E11.9 Type 2 diabetes mellitus without complications; F03.90 Unspecified dementia, unspecified severity, without behavioral disturbance, psychotic disturbance, mood disturbance, and anxiety; M10.9 Gout, unspecified; G89.29 Other chronic pain; Z86.16 Personal history of COVID-19; Z79.84 Long term (current) use of oral hypoglycemic drugs; Z88.1 Allergy status to other antibiotic agents; Z88.5 Allergy status to narcotic agent; Z79.899 Other long term (current) drug therapy; Z86.73 Personal history of transient ischemic attack (TIA), and cerebral infarction without residual deficits; Z90.49 Acquired absence of other specified parts of digestive tract; I50.9 Heart failure, unspecified
CPT/HCPCS: 36415; 71045; 71275; 80053; 81001; 82728; 82962; 83605; 83735; 83880; 84484; 85025; 85379; 85610; 85730; 87040; 87086; 87426; 93005; 93970; 94640; 96365; 96375; 97110; 97116; 97163; 97530; G0378; J1100; J1815

== ENCOUNTER → 2020-06-21 | Outpatient (CLI) | payer MEDICARE, MEDICAID ==
[~2020-06-21] MED LIST changes: +DOXY25SU3 OR; +PRE1T PO
== END | disposition home or self-care (01) ==
LOC: Rad HDHVI 13:11
PROVIDERS: ATTEND Internal Medicine Cardiovascular Disease
DX: I08.8 Other rheumatic multiple valve diseases (principal); R00.2 Palpitations; R06.02 Shortness of breath
CPT/HCPCS: 93306

== ENCOUNTER → 2020-06-24 | Outpatient (CLI) | payer MEDICARE, MEDICAID | END | disposition home or self-care (01) | LOC: Rad HDHVI 10:20 | PROVIDERS: ATTEND Internal Medicine Cardiovascular Disease | DX: J92.9 Pleural plaque without asbestos (principal); I25.10 Atherosclerotic heart disease of native coronary artery without angina pectoris; I70.0 Atherosclerosis of aorta; Z90.49 Acquired absence of other specified parts of digestive tract | CPT/HCPCS: 71250 ==

== ENCOUNTER 2020-12-03 01:25 | Inpatient (IN) | payer MEDICARE, MEDICAID ==
[~2020-12-03] VITALS: Ht 147.3 cm; Wt 55.0 kg
[2020-12-03 03:03] LABS: Basophils # (auto) 0.1 10 ^3/uL (0-0.2); Basophils % (auto) 1.1 % (0.0-2.0); Eosinophils # (auto) 0.6 10 ^3/uL (0-0.8); Eosinophils % (auto) 5.1 % (0.0-7.0); Hematocrit 37.6 % (36.0-46.0); Hemoglobin 12.7 g/dL (12.2-16.2); Lymphocytes # (auto) 4.3 10 ^3/uL (0.4-5.4); Lymphocytes % (auto) 36.6 % (10.0-50.0); Mean Corpuscular Hemoglobin 29.7 pg (28.0-32.0); Mean Corpuscular Hgb Conc. 33.8 g/dL (32.0-36.0); Mean Corpuscular Volume 87.9 fL (80.0-100.0); Monocytes # (auto) 1.2 10 ^3/uL (0-1.3); Monocytes % (auto) 10.6 % (0.0-12.0); Neutrophils # (auto) 5.5 10 ^3/uL (1.6-8.6); Neutrophils % (auto) 46.6 % (37.0-80.0); Nucleated Red Blood Cells % 0.2 %; Red Blood Cells 4.28 10^6/uL (4.0-5.20); Red Cell Distribution Width 13.9 % (11.8-14.3); White Blood Cell 11.7 10^3/uL (4.4-10.8)
[2020-12-03 03:26] LABS: BUN/Creatinine Ratio 25.4; Calcium 9.2 mg/dL (8.5-10.1); Potassium 4.6 mmol/L (3.5-5.1)
[2020-12-03] MEDS ORDERED: LIDOCAINE 5% TOPICAL PATCH TOP ONE (04:45)
[2020-12-03] MEDS ORDERED: LIDOCAINE HCL 2% TOP JELLY 5ML TOP ONE (04:45)
[2020-12-03] MEDS ORDERED: METOCLOPRAMIDE HCL 5MG/ml INJ 2ml VIAL IV ONE (05:30)
[2020-12-03] MEDS ORDERED: SODIUM CHLORIDE 0.9% 500 ML IV ONE (05:30)
[2020-12-03] MEDS ORDERED: ACETAMINOPHEN 325 MG TAB PO ONE (05:30)
[2020-12-03] MEDS ORDERED: LIDOCAINE 1% HCL (LOCAL ANESTH.) INJ 20ML MDV IJ ONE (05:45)
[2020-12-03] MEDS ORDERED: IOHEXOL 350 MG/ML 100ML IJ ONE (08:12)
[2020-12-03] MEDS ORDERED: NITROGLYCERIN 0.4 MG SL TAB SL PRN ×2 (11:15→12:00)
[2020-12-03] MEDS ORDERED: MORPHINE SULFATE INJECTION 2 MG/ML SYRG IV PRN ×3 (11:15→12:00)
[2020-12-03] MEDS ORDERED: LIDOCAINE 2%HCL (LOCAL ANESTH.) INJ 20ML MDV ONE (11:32)
[2020-12-03] MEDS ORDERED: ATOR20TA50 PO (11:45)
[2020-12-03] MEDS ORDERED: CELE1CAP8 PO (11:45)
[2020-12-03] MEDS ORDERED: HYDR200T36 PO (11:45)
[2020-12-03] MEDS ORDERED: POTA-180 PO (11:45)
[2020-12-03] MEDS ORDERED: LOSA-69 PO (11:45)
[2020-12-03] MEDS ORDERED: LEVO100T8 PO (11:45)
[2020-12-03] MEDS ORDERED: FURO40TA4 PO (11:45)
[2020-12-03] MEDS ORDERED: GABA300C10 PO (11:45)
[2020-12-03] MEDS ORDERED: HYDR-4798 PO (11:51)
[2020-12-03] MEDS ORDERED: CITA-73 PO (11:51)
[2020-12-03] MEDS ORDERED: OMEP-263 PO (11:51)
[2020-12-03] MEDS ORDERED: ERGO1CAP12 PO (11:51)
[2020-12-03] MEDS ORDERED: CITA-77 PO (11:55)
[2020-12-03] MEDS ORDERED: BACL10TA PO (11:58)
[2020-12-03] MEDS ORDERED: CITA-245 PO (11:58)
[2020-12-03] MEDS ORDERED: VANCOMYCIN PER PHARMACY 0 MG IV SCH (12:00)
[2020-12-03] MEDS ORDERED: ALUM & MAG HYDROX-SIMETH LIQ(MAALOX) 30 ML PO PRN (12:00)
[2020-12-03] MEDS ORDERED: ACETAMINOPHEN 325 MG TAB PO PRN (12:00)
[2020-12-03] MEDS ORDERED: AZTREONAM 1GM INJ 1 GM in D5W 5% 50 ML IV ONE (12:00)
[2020-12-03] MEDS ORDERED: DOCUSATE SOD 100 MG CAP PO PRN (12:00)
[2020-12-03] MEDS ORDERED: ONDANSETRON HCL 4 MG/2 ML VIAL IV PRN (12:00)
[2020-12-03] MEDS ORDERED: FAMOTIDINE (10MG/ML) 2ML VL IV ONE ×2 (12:15→12:30)
[2020-12-03] MEDS ORDERED: DEXTROSE (50%) 50ML SYRG IV PRN (12:15)
[2020-12-03 12:48] LABS: Cholesterol 148 mg/dL (< 200); HDL Cholesterol 49 mg/dL (40-59); LDL Cholesterol 71 mg/dL (< 100); Triglycerides 282 mg/dL (< 150)
[2020-12-03] MEDS: SODIUM CHLORIDE 0.9% 1,000 ML IV SCH (13:00)
[2020-12-03 13:41] LABS: Magnesium 1.8 mg/dL (1.6-2.6)
[2020-12-03 13:46] LABS: Phosphorus 4.1 mg/dL (2.5-4.90)
[2020-12-03] MEDS: GABAPENTIN 300 MG CAP PO SCH ×2 (14:25→21:58)
[2020-12-03] MEDS ORDERED: VANCOMYCIN 1GM/250ML 250 ML IV ONE (15:00)
[2020-12-03 15:44] LABS: CSF White Blood Cells 1 CUMM (0-5)
[2020-12-03] MEDS: ACCU-CHEK COMFORT CURVE STRIP VI SCH ×2 (17:56→21:58)
[2020-12-03] MEDS: InsuLIN REG 1unit/0.01ml Soln (100units/ml) SC SCH ×2 (17:57→21:59)
[2020-12-03] MEDS: FUROSEMIDE 20 MG/2 ML VIAL IV SCH (18:42)
[2020-12-03] MEDS ORDERED: AZTREONAM 1GM INJ 1 GM in D5W 5% 50 ML IV SCH (20:00)
[2020-12-03 20:17] LABS: Urine Bacteria NONE SEEN /hpf (None Seen); Urine Blood Negative /uL (Negative); Urine Specific Gravity 1.025 (1.001-1.035); Urine WBC 1 /hpf (0 - 5)
[2020-12-03 20:39] LABS: Amphetamine Screen, Urine NEGATIVE (NEGATIVE); Barbiturate Scree,Urine NEGATIVE (NEGATIVE); Benzodiazephine Screen, Urine NEGATIVE (NEGATIVE); Cannabinoid Screen, Urine NEGATIVE (NEGATIVE); Cocaine Screen, Urine NEGATIVE (NEGATIVE); Opiate Scree,Urine NEGATIVE (NEGATIVE); Phencyclidine Screen, Urine NEGATIVE (NEGATIVE)
[2020-12-03] MEDS: FAMOTIDINE (10MG/ML) 2ML VL IV SCH (21:57)
[2020-12-03] MEDS: MEROPENEM 1GM IVPB 100 ML IV SCH (21:57)
[2020-12-03] MEDS: ATORVASTATIN 20 MG TAB PO SCH (21:58)
[2020-12-03] MEDS: POTASSIUM CHL 20 Meq TABLET PO SCH (21:58)
[2020-12-03] MEDS ORDERED: FAMOTIDINE (10MG/ML) 2ML VL IV SCH (22:00)
[2020-12-03 22:50] VITALS: BP 123/56
[2020-12-03 23:10] VITALS: BP 123/56
[2020-12-03] MEDS: hydrOXYchloroQUINE SULFATE 200 MG TAB PO SCH (23:38)
[2020-12-04 05:00] VITALS: BP 137/62
[2020-12-04 05:40] LABS: Basophils # (auto) 0.1 10 ^3/uL (0-0.2); Eosinophils # (auto) 0.5 10 ^3/uL (0-0.8); Eosinophils % (auto) 4.7 % (0.0-7.0); Hematocrit 39.8 % (36.0-46.0); Hemoglobin 13.2 g/dL (12.2-16.2); Lymphocytes % (auto) 26.7 % (10.0-50.0); Mean Corpuscular Hgb Conc. 33.2 g/dL (32.0-36.0); Mean Corpuscular Volume 87.2 fL (80.0-100.0); Monocytes # (auto) 1.1 10 ^3/uL (0-1.3); Monocytes % (auto) 9.9 % (0.0-12.0); Neutrophils # (auto) 6.5 10 ^3/uL (1.6-8.6); Neutrophils % (auto) 57.7 % (37.0-80.0); Nucleated Red Blood Cells % 0.1 %; Red Blood Cells 4.56 10^6/uL (4.0-5.20); Red Cell Distribution Width 13.9 % (11.8-14.3); White Blood Cell 11.3 10^3/uL (4.4-10.8)
[2020-12-04] MEDS: SODIUM CHLORIDE 0.9% 1,000 ML IV SCH (05:40)
[2020-12-04 05:54] LABS: BUN/Creatinine Ratio 28.6; Potassium 4.1 mmol/L (3.5-5.1)
[2020-12-04] MEDS: FUROSEMIDE 20 MG/2 ML VIAL IV SCH (05:56)
[2020-12-04] MEDS: GABAPENTIN 300 MG CAP PO SCH ×3 (05:57→22:49)
[2020-12-04] MEDS: LEVOTHYROXINE SODIUM 100 MCG TAB PO SCH (06:59)
[2020-12-04] MEDS: InsuLIN REG 1unit/0.01ml Soln (100units/ml) SC SCH ×3 (06:59→17:00)
[2020-12-04] MEDS: ACCU-CHEK COMFORT CURVE STRIP VI SCH ×4 (06:59→22:49)
[2020-12-04 09:00] VITALS: BP 130/65
[2020-12-04] MEDS: MEROPENEM 1GM IVPB 100 ML IV SCH (10:00)
[2020-12-04] MEDS: FAMOTIDINE (10MG/ML) 2ML VL IV SCH (10:29)
[2020-12-04] MEDS: ASPirin 81 mg TAB PO SCH (10:29)
[2020-12-04] MEDS: ENOXAPARIN SOD 40 MG/0.4 ML SYRINGE SC SCH (10:29)
[2020-12-04] MEDS: POTASSIUM CHL 20 Meq TABLET PO SCH ×2 (10:30→22:48)
[2020-12-04] MEDS: LOSARTAN POTASSIUM 50 MG TAB PO SCH (10:30)
[2020-12-04] MEDS: CITALOPRAM HYDROBR 20 MG TAB PO SCH (10:30)
[2020-12-04] MEDS: hydrOXYchloroQUINE SULFATE 200 MG TAB PO SCH ×2 (10:31→22:49)
[2020-12-04] MEDS ORDERED: VANCOMYCIN 1GM/250ML 250 ML IV SCH (12:00)
[2020-12-04 13:00] VITALS: BP 126/62
[2020-12-04 17:00] VITALS: BP 122/72
[2020-12-04 17:15] LABS: Free T3 2.57 pg/mL (2.3-4.2); Free T4 (Free Thyroxine) 1.2 ng/dL (0.89-1.76)
[2020-12-04 22:00] VITALS: BP 136/65
[2020-12-04] MEDS: ATORVASTATIN 20 MG TAB PO SCH (22:49)
[2020-12-05] MEDS: InsuLIN REG 1unit/0.01ml Soln (100units/ml) SC SCH ×3 (00:54→11:30)
[2020-12-05] MEDS: HYDROcodone-ACET 5/325MG TAB PO PRN ×2 (01:35→14:34)
[2020-12-05 05:00] VITALS: BP 97/58
[2020-12-05] MEDS: ACCU-CHEK COMFORT CURVE STRIP VI SCH ×2 (06:49→11:05)
[2020-12-05] MEDS: GABAPENTIN 300 MG CAP PO SCH ×2 (06:56→14:00)
[2020-12-05] MEDS: LEVOTHYROXINE SODIUM 100 MCG TAB PO SCH (06:56)
[2020-12-05 09:00] VITALS: BP 107/59
[2020-12-05] MEDS: hydrOXYchloroQUINE SULFATE 200 MG TAB PO SCH (09:47)
[2020-12-05] MEDS: CITALOPRAM HYDROBR 20 MG TAB PO SCH (09:49)
[2020-12-05] MEDS: POTASSIUM CHL 20 Meq TABLET PO SCH (09:49)
[2020-12-05] MEDS: ASPirin 81 mg TAB PO SCH (09:50)
[2020-12-05] MEDS: LOSARTAN POTASSIUM 50 MG TAB PO SCH (09:50)
[2020-12-05] MEDS: ENOXAPARIN SOD 40 MG/0.4 ML SYRINGE SC SCH (09:51)
[2020-12-05] MEDS ORDERED: levoFLOXacin 500 MG TAB PO SCH (10:00)
[2020-12-05] MEDS ORDERED: ACETAMINOPHEN 325 MG TAB PO ONE (10:45)
[2020-12-05] MEDS ORDERED: LEVO-28 PO (11:12)
[2020-12-05 12:31] VITALS: BP 107/59
[2020-12-05 13:00] VITALS: BP 121/64
[2020-12-06] MEDS ORDERED: levoFLOXacin 250 MG TAB PO SCH (10:00)
== END 2020-12-05 15:30 | disposition home health service (06) | DRG 78 ==
LOC: EDBD 01:25 → ER 01:28 → TELE 11:04 → TELE-WESTW 22:53
PROVIDERS: ADMIT Hospitalist; ATTEND Internal Medicine
PROC: 009U3ZX Drainage of Spinal Canal, Percutaneous Approach, Diagnostic (ICD-10-PCS; principal; 2020-12-03)
PROC: B01B1ZZ Fluoroscopy of Spinal Cord using Low Osmolar Contrast (ICD-10-PCS; 2020-12-03)
DX: I67.4 Hypertensive encephalopathy (principal); I16.1 Hypertensive emergency; N39.0 Urinary tract infection, site not specified; J96.10 Chronic respiratory failure, unspecified whether with hypoxia or hypercapnia; D72.829 Elevated white blood cell count, unspecified; I50.9 Heart failure, unspecified; E11.40 Type 2 diabetes mellitus with diabetic neuropathy, unspecified; F03.90 Unspecified dementia, unspecified severity, without behavioral disturbance, psychotic disturbance, mood disturbance, and anxiety; I25.5 Ischemic cardiomyopathy; E03.9 Hypothyroidism, unspecified; E11.21 Type 2 diabetes mellitus with diabetic nephropathy; E78.5 Hyperlipidemia, unspecified; F17.200 Nicotine dependence, unspecified, uncomplicated; H93.12 Tinnitus, left ear; I11.0 Hypertensive heart disease with heart failure; I25.10 Atherosclerotic heart disease of native coronary artery without angina pectoris; M15.9 Polyosteoarthritis, unspecified; Z96.651 Presence of right artificial knee joint; J44.9 Chronic obstructive pulmonary disease, unspecified; Z86.73 Personal history of transient ischemic attack (TIA), and cerebral infarction without residual deficits; Z88.5 Allergy status to narcotic agent; Z88.8 Allergy status to other drugs, medicaments and biological substances; Z79.82 Long term (current) use of aspirin; Z79.890 Hormone replacement therapy; Z79.899 Other long term (current) drug therapy; Z80.41 Family history of malignant neoplasm of ovary; Z82.3 Family history of stroke; Z82.49 Family history of ischemic heart disease and other diseases of the circulatory system; Z83.3 Family history of diabetes mellitus; Z86.16 Personal history of COVID-19; Z90.49 Acquired absence of other specified parts of digestive tract
CPT/HCPCS: 36415; 51702; 62272; 70450; 70460; 70551; 80048; 80061; 80307; 81001; 82945; 82962; 83036; 83735; 83880; 84100; 84157; 84439; 84443; 84481; 84484; 85025; 87040; 87070; 87086; 87088; 87186; 87205; 87426; 89051; 93005; 93306; 93886; 96361; 96365; 96367; 96372; 96375; 96376; G0378; J1815; J2001; J2185; J3490; J7060

== ENCOUNTER → 2020-12-23 | Outpatient (CLI) | payer MEDICARE, MEDICAID ==
[~2020-12-23] MED LIST changes: -ALEN70TA74 PO; -ATOR20TA PO; +ATOR20TA50 PO; +BACL10TA PO; -BACL20TA PO; +CELE1CAP8 PO; -CHOL100029 PO; +CITA-245 PO; -CITA20TA3 PO; -DOXY25SU3 OR; +ERGO1CAP12 PO; -FAMO-12 PO; -FENO145T27 PO; +FURO40TA4 PO; +GABA300C10 PO; +HYDR-4798 PO; +HYDR200T36 PO; +LEVO-28 PO; +LEVO100T8 PO; -LEVO75TA42 PO; +OMEP-263 PO; +POTA-180 PO; -PRE1T PO
== END | disposition home or self-care (01) ==
LOC: LAB 09:25
PROVIDERS: ATTEND Internal Medicine Cardiovascular Disease
DX: E11.9 Type 2 diabetes mellitus without complications (principal)
CPT/HCPCS: 36415; 83036

== ENCOUNTER → 2021-07-16 | Outpatient (CLI) | payer OTHER | END | disposition home or self-care (01) | LOC: Rad HDHVI 13:05 | PROVIDERS: ATTEND Internal Medicine Cardiovascular Disease | DX: I70.0 Atherosclerosis of aorta (principal) | CPT/HCPCS: 71046 ==

== ENCOUNTER → 2021-07-18 | Outpatient (CLI) | payer OTHER | END | disposition home or self-care (01) | LOC: Rad HDHVI 16:05 | PROVIDERS: ATTEND Internal Medicine Cardiovascular Disease | DX: I10 Essential (primary) hypertension (principal); R42 Dizziness and giddiness | CPT/HCPCS: 93306 ==

== ENCOUNTER → 2021-07-30 | Outpatient (CLI) | payer OTHER ==
[~2021-07-30] VITALS: Ht 149.9 cm; Wt 59.4 kg
[~2021-07-30] MED LIST changes: +ADENOSINE 50 MG in GIVE UN-DILUTED 0 ML IV ONE; +ADENOSINE 90 MG/30 ML INJ IV ONE
== END | disposition home or self-care (01) ==
LOC: Rad HDHVI 08:56
PROVIDERS: ATTEND Internal Medicine Cardiovascular Disease
DX: I10 Essential (primary) hypertension (principal); R00.2 Palpitations; E78.5 Hyperlipidemia, unspecified; R07.9 Chest pain, unspecified; E11.42 Type 2 diabetes mellitus with diabetic polyneuropathy; Z82.49 Family history of ischemic heart disease and other diseases of the circulatory system
CPT/HCPCS: 78452; 93005; 96374; 96375; A9500; J0153

== ENCOUNTER → 2022-01-12 | Outpatient (CLI) | payer OTHER ==
[~2022-01-12] MED LIST changes: -ADENOSINE 50 MG in GIVE UN-DILUTED 0 ML IV ONE; -ADENOSINE 90 MG/30 ML INJ IV ONE
== END | disposition home or self-care (01) ==
LOC: Rad HDHVI 10:11
PROVIDERS: ATTEND Internal Medicine Cardiovascular Disease
DX: I70.0 Atherosclerosis of aorta (principal); M47.814 Spondylosis without myelopathy or radiculopathy, thoracic region; R06.02 Shortness of breath
CPT/HCPCS: 71046

== ENCOUNTER → 2022-01-19 | Outpatient (CLI) | payer OTHER ==
[~2022-01-19] VITALS: Ht 149.9 cm; Wt 60.3 kg
[~2022-01-19] MED LIST changes: +ADENOSINE 51 MG in GIVE UN-DILUTED 0 ML IV ONE; +ADENOSINE 90 MG/30 ML INJ IV ONE
== END | disposition home or self-care (01) ==
LOC: Rad HDHVI 09:33
PROVIDERS: ATTEND Internal Medicine Cardiovascular Disease
DX: I10 Essential (primary) hypertension (principal); E78.5 Hyperlipidemia, unspecified; E11.9 Type 2 diabetes mellitus without complications; I35.8 Other nonrheumatic aortic valve disorders; R06.02 Shortness of breath; R06.01 Orthopnea; R07.9 Chest pain, unspecified; Z82.49 Family history of ischemic heart disease and other diseases of the circulatory system; Z79.82 Long term (current) use of aspirin; Z79.84 Long term (current) use of oral hypoglycemic drugs; Z79.899 Other long term (current) drug therapy
CPT/HCPCS: 78452; 93005; 96374; 96375; A9500; J0153

== ENCOUNTER → 2022-01-20 | Outpatient (CLI) | payer OTHER ==
[~2022-01-20] MED LIST changes: -ADENOSINE 51 MG in GIVE UN-DILUTED 0 ML IV ONE; -ADENOSINE 90 MG/30 ML INJ IV ONE
== END | disposition home or self-care (01) ==
LOC: Rad HDHVI 09:55
PROVIDERS: ATTEND Internal Medicine Cardiovascular Disease
DX: I08.8 Other rheumatic multiple valve diseases (principal); R06.02 Shortness of breath; R00.2 Palpitations; I11.9 Hypertensive heart disease without heart failure
CPT/HCPCS: 93306

== ENCOUNTER → 2022-03-13 | Outpatient (CLI) | payer MEDICAID | END | disposition home or self-care (01) | LOC: Rad HDHVI 11:02 | PROVIDERS: ATTEND Internal Medicine Cardiovascular Disease | DX: M19.041 Primary osteoarthritis, right hand (principal); M19.042 Primary osteoarthritis, left hand | CPT/HCPCS: 73130 ==

== ENCOUNTER → 2022-11-13 | Outpatient (CLI) | payer MEDICAID ==
[~2022-11-13] MED LIST changes: +GABA-1250 PO; -GABA300C10 PO; -LEVO-28 PO; +LEVO500T91 PO; -LOSA-69 PO; +LOSA50TA46 PO; -OMEP-263 PO; +OMEP-448 PO
== END | disposition home or self-care (01) ==
LOC: Rad HDHVI 09:56
PROVIDERS: ATTEND Internal Medicine Cardiovascular Disease
DX: I63.9 Cerebral infarction, unspecified (principal)
CPT/HCPCS: 70450

== ENCOUNTER → 2022-12-02 | Outpatient (CLI) | payer MEDICAID | END | disposition home or self-care (01) | LOC: Rad HDHVI 13:42 | PROVIDERS: ATTEND Internal Medicine Cardiovascular Disease | DX: I65.23 Occlusion and stenosis of bilateral carotid arteries (principal); I10 Essential (primary) hypertension | CPT/HCPCS: 93880 ==

== ENCOUNTER → 2022-12-25 | Outpatient (CLI) | payer MEDICAID, OTHER | END | disposition home or self-care (01) | LOC: Rad HDHVI 10:22 | PROVIDERS: ATTEND Internal Medicine Cardiovascular Disease | DX: M17.12 Unilateral primary osteoarthritis, left knee (principal) | CPT/HCPCS: 73562 ==

== ENCOUNTER → 2023-09-07 | Outpatient (CLI) | payer OTHER ==
[~2023-09-07] MED LIST changes: +CELE1CAP29 PO; -CELE1CAP8 PO; +LOSA-534 PO; -LOSA50TA46 PO
[2023-09-07 16:43] VITALS: BP 117/81; PULSE 88
[2023-09-07 16:44] VITALS: BP 130/80; PULSE 83
== END | disposition home or self-care (01) ==
LOC: CHF HDHVI 14:41
PROVIDERS: ATTEND Internal Medicine Cardiovascular Disease
DX: I25.118 Atherosclerotic heart disease of native coronary artery with other forms of angina pectoris (principal); I50.43 Acute on chronic combined systolic (congestive) and diastolic (congestive) heart failure; R07.9 Chest pain, unspecified; E11.9 Type 2 diabetes mellitus without complications; G31.89 Other specified degenerative diseases of nervous system
CPT/HCPCS: G0166

== ENCOUNTER → 2023-09-08 | Outpatient (CLI) | payer OTHER ==
[2023-09-08 15:43] VITALS: BP 128/84; PULSE 94
[2023-09-08 15:57] VITALS: BP 125/78; PULSE 95
== END | disposition home or self-care (01) ==
LOC: CHF HDHVI 14:47
PROVIDERS: ATTEND Internal Medicine Cardiovascular Disease
DX: I25.118 Atherosclerotic heart disease of native coronary artery with other forms of angina pectoris (principal); I50.43 Acute on chronic combined systolic (congestive) and diastolic (congestive) heart failure; R06.02 Shortness of breath; E11.9 Type 2 diabetes mellitus without complications
CPT/HCPCS: G0166

== ENCOUNTER → 2023-09-10 | Outpatient (CLI) | payer OTHER ==
[2023-09-10 15:57] VITALS: BP 123/78; PULSE 81
[2023-09-10 15:58] VITALS: BP 124/82; PULSE 96
== END | disposition home or self-care (01) ==
LOC: CHF HDHVI 14:44
PROVIDERS: ATTEND Internal Medicine Cardiovascular Disease
DX: I25.118 Atherosclerotic heart disease of native coronary artery with other forms of angina pectoris (principal); I50.43 Acute on chronic combined systolic (congestive) and diastolic (congestive) heart failure
CPT/HCPCS: G0166

== ENCOUNTER → 2023-09-15 | Outpatient (CLI) | payer OTHER ==
[2023-09-15 16:14] VITALS: BP 125/72; PULSE 89
[2023-09-15 16:15] VITALS: BP 122/81; PULSE 90
== END | disposition home or self-care (01) ==
LOC: CHF HDHVI 14:33
PROVIDERS: ATTEND Internal Medicine Cardiovascular Disease
DX: I25.118 Atherosclerotic heart disease of native coronary artery with other forms of angina pectoris (principal); I50.43 Acute on chronic combined systolic (congestive) and diastolic (congestive) heart failure
CPT/HCPCS: G0166

== ENCOUNTER → 2023-09-17 | Outpatient (CLI) | payer OTHER ==
[2023-09-17 15:37] VITALS: BP 130/79; PULSE 90
[2023-09-17 15:53] VITALS: BP 134/81; PULSE 90
== END | disposition home or self-care (01) ==
LOC: CHF HDHVI 14:36
PROVIDERS: ATTEND Internal Medicine Cardiovascular Disease
DX: I25.118 Atherosclerotic heart disease of native coronary artery with other forms of angina pectoris (principal); I50.43 Acute on chronic combined systolic (congestive) and diastolic (congestive) heart failure
CPT/HCPCS: G0166

== ENCOUNTER → 2023-09-21 | Outpatient (CLI) | payer OTHER ==
[2023-09-21 16:38] VITALS: BP 122/76; PULSE 92
[2023-09-21 16:39] VITALS: BP 118/68; PULSE 94
== END | disposition home or self-care (01) ==
LOC: CHF HDHVI 14:42
PROVIDERS: ATTEND Internal Medicine Cardiovascular Disease
DX: I25.118 Atherosclerotic heart disease of native coronary artery with other forms of angina pectoris (principal); I50.43 Acute on chronic combined systolic (congestive) and diastolic (congestive) heart failure; R06.02 Shortness of breath; E11.9 Type 2 diabetes mellitus without complications; I63.9 Cerebral infarction, unspecified
CPT/HCPCS: G0166

== ENCOUNTER → 2023-12-23 | Outpatient (CLI) | payer OTHER | END | disposition home or self-care (01) | LOC: Rad HDHVI 12:58 | PROVIDERS: ATTEND Internal Medicine Cardiovascular Disease | DX: I10 Essential (primary) hypertension (principal); R00.2 Palpitations | CPT/HCPCS: 93306 ==

== ENCOUNTER → 2023-12-27 | Outpatient (CLI) | payer OTHER ==
[~2023-12-27] VITALS: Ht 151.1 cm; Wt 61.7 kg
[~2023-12-27] MED LIST changes: +ADENOSINE 52 MG in GIVE UN-DILUTED 0 ML IV ONE; +ADENOSINE 90 MG/30 ML INJ IV ONE
== END | disposition home or self-care (01) ==
LOC: Rad HDHVI 14:10
PROVIDERS: ATTEND Internal Medicine Cardiovascular Disease
DX: I63.9 Cerebral infarction, unspecified (principal); I11.0 Hypertensive heart disease with heart failure; I50.33 Acute on chronic diastolic (congestive) heart failure; E11.21 Type 2 diabetes mellitus with diabetic nephropathy; Z86.79 Personal history of other diseases of the circulatory system; Z82.49 Family history of ischemic heart disease and other diseases of the circulatory system
CPT/HCPCS: 78452; 93005; 96374; A9500; J0153; 96375

== ENCOUNTER 2024-02-09 17:43 | Emergency (ER) | payer OTHER, MEDICAID ==
[~2024-02-09] VITALS: Ht 149.9 cm; Wt 59.0 kg
[~2024-02-09 17:43] MED LIST changes: -ADENOSINE 52 MG in GIVE UN-DILUTED 0 ML IV ONE; -ADENOSINE 90 MG/30 ML INJ IV ONE
--- NOTE | 2024-02-09 18:25 | ED.PDOC ---
GI ASSESSMENT HPI Comments A 73 year old female presents to the ED with a chief complaint of nausea and vomiting onset yesterday. Patient states she began experiencing nausea and vomiting yesterday as has not been able to eat or drink. Patient also noticed dizziness, increased fatigue, LT sided headache. She has a past medical history of CVA, CHF, ME, DM, HTN, HLD, arthritis, angina. No other symptoms or modifying factors present at this time. Chief Complaint: Nausea/Vomiting Time Seen by MD: 18:18 Primary Care Provider: RON Reviewed Notes: Medications, Allergies Allergies: Coded Allergies: Ceftriaxone (Verified Allergy, Unknown, 12/31/19) Codeine (Verified Allergy, Unknown, 06/19/15) Levofloxacin (Verified Allergy, Unknown, 01/19/22) Home Meds Active Scripts Ondansetron Odt 4MG Tab (ZOFRAN PO) 4 Mg Tb, 4 MG PO Q6HP PRN for 7 Days, #28 TAB ODT TAB-DISSOLVE IN MOUTH, THEN SWALLOW Prov:VICKIE DAVALOS MD 02/09/24 Meclizine Hcl (Meclizine Hcl) 12.5 Mg Tab, 12.5 MG PO BIDP PRN for 7 Days, #20 MG 0 Refills Prov:VICKIE DAVALOS MD 02/09/24 Levofloxacin Hemihydrate (LEVOFLOXACIN) 500 Mg Tab, 500 MG PO DAILY for 4 Days, #4 TAB Prov:JIM GALAN MD 12/05/20 Reported Medications Citalopram Hydrobromide (Citalopram) 40 Mg Tab, 40 MG PO DAILY 12/03/20 Baclofen (Baclofen) 10 Mg Tab, 10 MG PO TID 12/03/20 Omeprazole (Omeprazole Dr) 40 Mg Cap, 1 CAP PO DAILY 12/03/20 Ergocalciferol (Vitamin D) 50,000 Unit Cap, 1 CAP PO QWEEKLY 12/03/20 Hydrocodone-Acetaminophen (Hydrocodone Bitartrate/AC 10-325 mg) 1 Tab Tab, 1 TAB PO TIDP 12/03/20 Gabapentin (Gabapentin) 300 Mg Cap, 1 CAP PO TID 12/03/20 Atorvastatin Calcium (ATORVASTATIN CALCIUM) 20 Mg Tab, 1 TAB PO DAILY 12/03/20 Furosemide (Furosemide) 40 Mg Tab, 1 TAB PO DAILY 12/03/20 Potassium Chloride (Potassium Chloride ER) 20 Meq Tab, 1 TAB PO DAILY 12/03/20 Hydroxychloroquine Sulfate (Hydroxychloroquine Sulfat) 200 Mg Tab, 1 TAB PO BID 12/03/20 Celecoxib (Celecoxib) 200 Mg Cap, 1 CAP PO DAILY 12/03/20 Levothyroxine Sodium (Levothyroxine Sodium) 100 Mcg Tab, 100 MCG PO DAILY, TAB 12/03/20 Metformin Hydrochloride (Metformin Hcl) 500 Mg Tab, 1 TAB PO BID 12/14/17 Albuterol Sulfate (Proair Respiclick) 108 Mcg/Act Aer, 108 MCG IN TID, AER 12/14/17 Losartan Potassium (Losartan Potassium) 50 Mg Tab, 1 TAB PO DAILY 12/14/17 Aspirin (ASPIRIN 81) 81 Mg Tab, 81 MG OR DAILY, TAB 06/28/15 Information Source: Patient Mode of Arrival: Ambulatory Timing: Days Duration: Since onset Prehospital treatment: None Severity: Moderate Recent: None Associated sign and symptoms: Nausea, Vomiting Past Medical History PAST MEDICAL HISTORY: Angina, Arthritis, CHF, CVA, DM, High Lipids, HTN, ME, Thyroid Surgical History: Appendectomy, Cholecystectomy MANAGER MEDICAL DEVICE History: No Pertinent MANAGER MEDICAL DEVICE History Family History Family History: No family hx of DM, No family hx of Heart lalo, No family hx of Stroke Social History Smoker: Non-Smoker Alcohol: Denies ETOH Use Drugs: Denies Drug Use Lives In: Home Constitutional: denies: chills, diaphoresis, fatigue, fever, malaise, sweats, weakness, others EENTM: denies: blurred vision, double vision, ear bleeding, ear discharge, ear drainage, ear pain, ear ringing, eye pain, eye redness, hearing loss, mouth pain, mouth swelling, nasal discharge, nose bleeding, nose congestion, nose pain, photophobia, tearing, throat pain, throat swelling, voice changes, others Respiratory: denies: cough, hemoptysis, orthopnea, SOB at rest, shortness of breath, SOB with excertion, stridor, wheezing, others Cardiovascular: denies: chest pain, dizzy spells, diaphoresis, Dyspnea on exertion, edema, irregular heart beat, left arm pain, lightheadedness, palpitations, PND, syncope, others Gastrointestinal: reports: nausea, poor appetite, vomiting; denies: abdomen distended, abdominal pain, blood streaked bowels, constipated, diarrhea, dysphagia, difficulty swallowing, hematemesis, melena, poor fluid intake, rectal bleeding, rectal pain, others Genitourinary: denies: abnormal vagina bleeding, burning, dyspareunia, dysuria, flank pain, frequency, hematuria, incontinence, pain, , vagina discharge, urgency, others Neurological: reports: dizziness, headache; denies: fainting, left sided numbness, left sided weakness, numbness, paresthesia, pre-existing deficit, right sided numbness, right sided weakness, seizure, speech problems, tingling, tremors, weakness, others Musculoskeletal: denies: back pain, gout, joint pain, joint swelling, muscle pain, muscle stiffness, neck pain, others Integumetry: denies: bruises, change in color, change in hair/nails, dryness, laceration, lesions, lumps, rash, wounds, others Allergic/Immunocompromised: denies: Difficulty Healing, Frequent Infections, Hives, Itching, others Hematologic/Lymphatic: denies: anemia, blood clots, easy bleeding, easy bruising, swollen glands, others Endocrine: denies: excessive hunger, excessive sweating, excessive thirst, excessive urination, flushing, intolerance to cold, intolerance to heat, unexplained weight gain, unexplained weight loss, others Psychiatric: denies: anxiety, bipolar disorder, depression, hopeless, panic disorder, schizophrenia, sleepless, suicidal, others All Other Systems: Reviewed and Negative Physical Exam General Appearance: No Apparent Distress, Normal HEENT: Normal ENT Inspection, Pharynx Normal, TMs Normal Neck: Full Range of Motion, Non-Tender, Normal, Normal Inspection Respiratory: Chest Non-Tender, Lungs Clear, No Accessory Muscle Use, No Respir atory Distress, Normal Breath Sounds Cardiovascular: No Edema, No JVD, No Murmur, No Gallop, Normal Peripheral Pulses, Regular Rate/Rhythm Breast Exam: Deferred Gastrointestinal: No Organomegaly, Non Tender, No Pulsatile Mass, Normal Bowel Sounds, Soft Genitalia: Deferred Pelvic: Deferred Rectal: Deferred Extremities: No calf tenderness, Normal capillary refill, Normal inspection, Normal range of motion, Non-tender, No pedal edema Musculoskeletal : Apperance: Normal Neurologic: Alert, chief controller station II-XII nml as Tested, No Motor Deficits, Normal Affect, Normal Mood, No Sensory Deficits Cerebellar Function: Normal Reflexes: Normal Skin: Dry, Normal Color, Warm Lymphatic: No Adenopathy EKG EKG : Pulse Rate (adult): 79 Cardiac Rhythm: NSR Comments Late transition, no STEMI Was a procedure done? Was a procedure done?: No GI differential Dx Differential Diagnosis: Angina/ME, Gastritis/PUD, Gastroenteritis, GI hemorrhage, Dehydration, Other Other Differential Diagnosis anemia, stroke, intracranial hemorrhage, sepsis X-Ray, Labs, Meds, VS Vital Signs Date Time Temp Pulse Resp B/P (MAP) Pulse Ox O2 Delivery O2 Flow Rate FiO2 02/09/24 19:30 79 02/09/24 18:05 79 02/09/24 17:59 97.9 87 18 110/60 (77) 96 Lab Test 02/09/24 18:15 02/09/24 17:58 Range/Units White Blood Count 11.3 H 4.4-10.8 10^3/uL Red Blood Count 4.77 4.0-5.20 10^6/uL Hemoglobin 14.6 12.2-16.2 g/dL Hematocrit 43.6 36.0-46.0 % Mean Corpuscular Volume 91.4 80.0-100.0 fL Mean Corpuscular Hemoglobin 30.6 28.0-32.0 pg Mean Corpuscular Hemoglobin Concent 33.5 32.0-36.0 g/dL Red Cell Distribution Width 13.8 11.8-14.3 % Platelet Count 256 140-450 10^3/uL Mean Platelet Volume 9.0 6.9-10.8 fL Neutrophils (%) (Auto) 65.0 37.0-80.0 % Lymphocytes (%) (Auto) 21.5 10.0-50.0 % Monocytes (%) (Auto) 8.8 0.0-12.0 % Eosinophils (%) (Auto) 3.4 0.0-7.0 % Basophils (%) (Auto) 1.3 0.0-2.0 % Neutrophils # (Auto) 7.3 1.6-8.6 10 ^3/uL Lymphocytes # (Auto) 2.4 0.4-5.4 10 ^3/uL Monocytes # (Auto) 1.0 0-1.3 10 ^3/uL Eosinophils # (Auto) 0.4 0-0.8 10 ^3/uL Basophils # (Auto) 0.1 0-0.2 10 ^3/uL Nucleated Red Blood Cells 0.0 % Sodium Level 138 136-145 mmol/L Potassium Level 4.7 3.5-5.1 mmol/L Chloride Level 100 98-107 mmol/L Carbon Dioxide Level 29 20-31 mmol/L Anion Gap 9 5-15 Blood Urea Nitrogen 38 H 9-23 mg/dL Creatinine 1.53 H 0.550-1.02 mg/dL Glomerular Filtration Rate Calc 35 >90 mL/min BUN/Creatinine Ratio 24.8 H 10.0-20.0 Serum Glucose 213 H 74-106 mg/dL Calcium Level 10.4 8.7-10.4 mg/dL Total Bilirubin 0.6 0.2-1.0 mg/dL Aspartate Amino Transferase (AST) 18 13-40 U/L Alanine Aminotransferase (ALT) 25 7-40 U/L Alkaline Phosphatase 78 46-116 U/L Troponin I High Sensitivity < 3 L </=34 ng/L Total Protein 7.4 5.7-8.2 g/dL Albumin 4.4 3.2-4.8 g/dL POC Glucose 201 H 70-106 mg/dl [facility] [id number] [place] [address] Ph: [phone] DIAGNOSTIC IMAGING Diagnostic Imaging Report : [id number] Signed PATIENT: AUBREE BERGERONT: [id number] UNIT: [id number] : 1950 LOC: ER ROOM / BED: / AGE / SEX: 73 / F ADM STATUS: REG ER SERVICE [id number] ORDERING PHYSICIAN: VICKIE DAVALOS MD PROCEDURE(s): HWOCT - HEAD WITHOUT CONTRAST REASON: vertigo ORDER NUMBER(s): [id number], ACCESSION NUMBER(s): [id number] EXAM: CT HEAD WITHOUT CONTRAST INDICATION: vertigo TECHNIQUE: CT of the head without intravenous contrast. Radiation Dose Information: CT Dose: CTDI volume is 52.02 mGy. Dose-length product is 1699.41 mGy*cm The dose indicators for CT are the volume Computed Tomography (CT) Dose Index (CTDIvol) and the Dose Length Product (DLP), and are measured in units of mGy and mGy-cm, respectively. These indicators are not patient dose, but values generated from the CT scanner acquisition factors. The report includes radiation exposure data for exposures received during this examination. COMPARISON: CT HEAD WITHOUT CONTRAST on DOS: 06/21/23, CT HEAD WITHOUT CONTRAST on DOS: 11/13/22 FINDINGS: Evaluation limited by beam hardening and motion artifacts. There is no evidence of acute intracranial hemorrhage, extra-axial collection, mass effect, midline shift, herniation or hydrocephalus. The ventricles, sulci and cisterns are age appropriate. The thurston-white differentiation is intact. Patchy periventricular and subcortical white matter hypoattenuation is nonspecific but may be related to small vessel ischemic disease. The visualized paranasal sinuses and mastoid air cells are clear. The surrounding soft tissues and osseous structures are unremarkable. IMPRESSION: 1. Evaluation limited by patient motion and beam hardening artifacts. No acute intracranial abnormality is appreciated. HS:Y ATED BY: ERIN RAMOS DO DICTATED DATE/TIME: 02/09/241850 SIGNED BY: ERIN RAMOS DO SIGNED DATE/TIME: 02/09/241850 CC: Time of 1ST Reevaluation: 18:48 Reevaluation 1ST: Unchanged Patient Education/Counseling: Diagnosis, Treatment, Prognosis Family Education/Counseling: No Family Present Departure 1 Departure Time of Disposition: 19:30 Impression: Primary Impression: Dizziness Additional Impressions: Renal insufficiency Headache Disposition: 01 HOME / SELF CARE / HOMELESS Condition: Stable Written Prescriptions meclizine, zofran e-Prescriptions Ondansetron Odt 4MG Tab (ZOFRAN PO) 4 Mg Tb 4 MG PO Q6HP PRN for 7 Days, #28 TAB ODT TAB-DISSOLVE IN MOUTH, THEN SWALLOW Prov: VICKIE DAVALOS MD 02/09/24 Meclizine Hcl (Meclizine Hcl) 12.5 Mg Tab 12.5 MG PO BIDP PRN for 7 Days, #20 MG 0 Refills Prov: VICKIE DAVALOS MD 02/09/24 Discharged With: Self, Relative Critical Care Note Critical Care Time?: No Stability Stability form required: No Heart Score Heart Score: Heart Score Response (Comments) Value History Slightly Suspicious 0 EKG Normal 0 Age 45-64 1 Risk Factors 1 or 2 risk factors 1 Troponin Normal limit 0 Total 2 I personally scribed for VICKIE DAVALOS MD ([email or web address]) on 02/09/24 at 18:25. E lectronically submitted by Glo Lu ([email or web address]). I personally scribed for VICKIE DAVALOS MD ([email or web address]) on 02/09/24 at 19:19. E lectronically submitted by Glo Lu ([email or web address]). VICKIE DAVALOS MD Feb 09, 2024 18:25
[2024-02-09 18:47] LABS: Basophils # (auto) 0.1 10 ^3/uL (0-0.2); Basophils % (auto) 1.3 % (0.0-2.0); Eosinophils # (auto) 0.4 10 ^3/uL (0-0.8); Eosinophils % (auto) 3.4 % (0.0-7.0); Hematocrit 43.6 % (36.0-46.0); Hemoglobin 14.6 g/dL (12.2-16.2); Lymphocytes # (auto) 2.4 10 ^3/uL (0.4-5.4); Lymphocytes % (auto) 21.5 % (10.0-50.0); Mean Corpuscular Hemoglobin 30.6 pg (28.0-32.0); Mean Corpuscular Hgb Conc. 33.5 g/dL (32.0-36.0); Mean Corpuscular Volume 91.4 fL (80.0-100.0); Monocytes % (auto) 8.8 % (0.0-12.0); Neutrophils # (auto) 7.3 10 ^3/uL (1.6-8.6); Platelet Count (auto) 256 10^3/uL (140-450); Red Blood Cells 4.77 10^6/uL (4.0-5.20); Red Cell Distribution Width 13.8 % (11.8-14.3); White Blood Cell 11.3 10^3/uL (4.4-10.8)
--- NOTE | 2024-02-09 18:54 | DVH ---
EXAM: CT HEAD WITHOUT CONTRAST INDICATION: vertigo TECHNIQUE: CT of the head without intravenous contrast. Radiation Dose Information: CT Dose: CTDI volume is 52.02 mGy. Dose-length product is 1699.41 mGy*cm The dose indicators for CT are the volume Computed Tomography (CT) Dose Index (CTDIvol) and the Dose Length Product (DLP), and are measured in units of mGy and mGy-cm, respectively. These indicators are not patient dose, but values generated from the CT scanner acquisition factors. The report includes radiation exposure data for exposures received during this examination. COMPARISON: CT HEAD WITHOUT CONTRAST on DOS: 06/21/23, CT HEAD WITHOUT CONTRAST on DOS: 11/13/22 FINDINGS: Evaluation limited by beam hardening and motion artifacts. There is no evidence of acute intracranial hemorrhage, extra-axial collection, mass effect, midline s hift, herniation or hydrocephalus. The ventricles, sulci and cisterns are age appropriate. The thurston-white differentiation is intact. Patchy periventricular and subcortical white matter hypoattenuation is nonspecific but may be related to small vessel ischemic disease. The visualized paranasal sinuses and mastoid air cells are clear. The surrounding soft tissues and osseous structures are unremarkable. IMPRESSION: 1. Evaluation limited by patient motion and beam hardening artifacts. No acute intracranial abnormali ty is appreciated. HS:Y
[2024-02-09 19:10] LABS: Alanine Aminotransferase 25 U/L (7-40); Albumin 4.4 g/dL (3.2-4.8); Alkaline Phosphatase 78 U/L (46-116); Anion Gap 9 (5-15); Aspartate Aminotransferase 18 U/L (13-40); BUN/Creatinine Ratio 24.8 (10.0-20.0); Blood Urea Nitrogen 38 mg/dL (9-23); Calcium 10.4 mg/dL (8.7-10.4); Carbon Dioxide 29 mmol/L (20-31); Chloride 100 mmol/L (98-107); Glucose 213 mg/dL (74-106); Potassium 4.7 mmol/L (3.5-5.1); Sodium 138 mmol/L (136-145)
[2024-02-09 19:11] LABS: Bilirubin, Total 0.6 mg/dL (0.2-1.0); Total Protein 7.4 g/dL (5.7-8.2)
[2024-02-09] MEDS ORDERED: MECL12.586 PO (19:25)
[2024-02-09] MEDS ORDERED: ZOFR4T PO (19:25)
[2024-02-09] MEDS: SODIUM CHLORIDE 0.9% 1,000 ML IV ONE (20:58)
[2024-02-09] MEDS: ONDANSETRON HCL 4 MG/2 ML VIAL IV ONE (21:00)
[2024-02-09 21:05] VITALS: PULSE 84; RESP 16; O2SAT 97
[2024-02-09 21:56] VITALS: BP 142/64; PULSE 74; RESP 16; TEMP 98.4; O2SAT 92
--- NOTE | 2024-02-10 06:37 | ECG ---
[facility] Test Date: 2024-02-09 Test Time: 18:05:04 Pat Name: BALJEET BERGERON Department: er Room: Gender: F Biochemical Engineer: yuniel : 1950 Requested By: VICKIE DAVALOS Order Number: [id number] Reading MD: Sabas Huerta Measurements Intervals [place] Rate: 79 P: 48 HI: 138 QRS: -33 QRSD: 92 T: 20 QT: 361 QTc: 414 Interpretive Statements Sinus rhythm Abnormal R-wave progression, late transition Probable inferior infarct, old Electronically Signed On 02-11-2024 17:37:48 PST by Sabas Huerta Please click the below link to view image of tracing.
== END 2024-02-09 21:57 | disposition home or self-care (01) ==
LOC: ER 17:43
DX: R42 Dizziness and giddiness (principal); R51.9 Headache, unspecified; N28.9 Disorder of kidney and ureter, unspecified; E11.9 Type 2 diabetes mellitus without complications; E78.5 Hyperlipidemia, unspecified; I11.0 Hypertensive heart disease with heart failure; I50.9 Heart failure, unspecified; I25.2 Old myocardial infarction; M19.90 Unspecified osteoarthritis, unspecified site; Z79.1 Long term (current) use of non-steroidal anti-inflammatories (NSAID); Z79.82 Long term (current) use of aspirin; Z79.84 Long term (current) use of oral hypoglycemic drugs; Z79.890 Hormone replacement therapy; Z79.899 Other long term (current) drug therapy; Z86.73 Personal history of transient ischemic attack (TIA), and cerebral infarction without residual deficits; Z88.1 Allergy status to other antibiotic agents; Z88.5 Allergy status to narcotic agent; Z90.49 Acquired absence of other specified parts of digestive tract
CPT/HCPCS: 36415; 70450; 80053; 82962; 84484; 85025; 93005; 96361; 96374; 99285; J2405; J7030

== ENCOUNTER 2024-02-20 14:02 | Inpatient (IN) | payer OTHER, MEDICAID ==
[~2024-02-20] VITALS: Ht 149.9 cm; Wt 56.3 kg
[~2024-02-20 14:02] MED LIST changes: +MECL12.586 PO; +ZOFR4T PO
--- NOTE | 2024-02-20 14:31 | ECG ---
[facility] Test Date: 2024-02-20 Test Time: 14:24:20 Pat Name: BALJEET BERGERON Department: ER Room: 0220 Gender: F Secondary Social Studies Teacher: OB : 1950 Requested By: CAROLEE CRESPO Order Number: [id number] Reading MD: Sabas Huerta Measurements Intervals [place] Rate: 110 P: 40 LA: 132 QRS: -26 QRSD: 76 T: 18 QT: 290 QTc: 393 Interpretive Statements Sinus tachycardia Ventricular premature complex Aberrant complex Probable left atrial enlargement Borderline left axis deviation Abnormal R-wave progression, late transition Electronically Signed On 02-23-2024 16:11:56 PST by Sabas Huerta Please click the below link to view image of tracing.
[2024-02-20 15:11] LABS: Basophils # (auto) 0.1 10 ^3/uL (0-0.2); Eosinophils # (auto) 0.2 10 ^3/uL (0-0.8); Eosinophils % (auto) 1.7 % (0.0-7.0); Hemoglobin 14.8 g/dL (12.2-16.2); Lymphocytes # (auto) 3.6 10 ^3/uL (0.4-5.4); Lymphocytes % (auto) 33.7 % (10.0-50.0); Mean Corpuscular Hemoglobin 30.5 pg (28.0-32.0); Mean Corpuscular Hgb Conc. 33.6 g/dL (32.0-36.0); Mean Corpuscular Volume 90.8 fL (80.0-100.0); Monocytes # (auto) 1.1 10 ^3/uL (0-1.3); Monocytes % (auto) 10.1 % (0.0-12.0); Neutrophils # (auto) 5.7 10 ^3/uL (1.6-8.6); Neutrophils % (auto) 53.5 % (37.0-80.0); Nucleated Red Blood Cells % 0.2 %; Platelet Count (auto) 164 10^3/uL (140-450); Red Blood Cells 4.85 10^6/uL (4.0-5.20); Red Cell Distribution Width 14.3 % (11.8-14.3); White Blood Cell 10.7 10^3/uL (4.4-10.8)
[2024-02-20 15:22] LABS: Alanine Aminotransferase 36 U/L (7-40); Alkaline Phosphatase 81 U/L (46-116); Anion Gap 12 (5-15); Blood Urea Nitrogen 16 mg/dL (9-23); Calcium 9.5 mg/dL (8.7-10.4); Carbon Dioxide 24 mmol/L (20-31); Chloride 102 mmol/L (98-107); Glucose 98 mg/dL (74-106); Potassium 4.8 mmol/L (3.5-5.1); Sodium 138 mmol/L (136-145)
--- NOTE | 2024-02-20 15:22 | ED.PDOC ---
History of Present Illness HPI Comments 73-year-old female brought in by daughter for evaluation of cough, chest congestion, fever, and shortness a breath, onset 4 days ago. Patient denies chest pain, nausea, vomiting, abdominal pain or edema. She denies any sick contacts. Chief Complaint: Shortness of Breath Time Seen by MD: 14:40 Primary Care Provider: RON Reviewed Notes: Nurses Notes, Medications, Allergies Allergies: Coded Allergies: Ceftriaxone (Verified Allergy, Severe, 02/20/24) Codeine (Verified Allergy, Severe, 02/20/24) Levofloxacin (Verified Allergy, Severe, 02/20/24) Information Source: Patient, Relative Mode of Arrival: Ambulatory Severity: Moderate Timing: Days Duration: Since onset, Days Prehospital treatment: None Past Medical History PAST MEDICAL HISTORY: Angina, Arthritis, CHF, CVA, DM, High Lipids, HTN, ND, Thyroid (low) Surgical History: Appendectomy, Cholecystectomy Surgical History (Other): Knee Replacement INTELLIGENCE APPLICATIONS History: No Pertinent INTELLIGENCE APPLICATIONS History Family History Family History: Reviewed,noncontributory to illness, Unknown Social History Smoker: Non-Smoker Alcohol: Denies ETOH Use Drugs: Denies Drug Use Lives In: Home Constitutional: reports: fever; denies: chills, diaphoresis, fatigue, malaise, sweats, weakness, others EENTM: denies: blurred vision, double vision, ear bleeding, ear discharge, ear drainage, ear pain, ear ringing, eye pain, eye redness, hearing loss, mouth pain, mouth swelling, nasal discharge, nose bleeding, nose congestion, nose pain, photophobia, tearing, throat pain, throat swelling, voice changes, others Respiratory: reports: cough, shortness of breath; denies: hemoptysis, orth opnea, SOB at rest, SOB with excertion, stridor, wheezing, others Cardiovascular: reports: chest pain; denies: dizzy spells, diaphoresis, Dyspnea on exertion, edema, irregular heart beat, left arm pain, lightheadedness, palpitations, PND, syncope, others Gastrointestinal: denies: abdomen distended, abdominal pain, blood streaked bowels, constipated, diarrhea, dysphagia, difficulty swallowing, hematemesis, melena, nausea, poor appetite, poor fluid intake, rectal bleeding, rectal pain, vomiting, others Genitourinary: denies: abnormal vagina bleeding, burning, dyspareunia, dysuria, flank pain, frequency, hematuria, incontinence, pain, , vagina discharge, urgency, others Neurological: denies: dizziness, fainting, headache, left sided numbness, left sided weakness, numbness, paresthesia, pre-existing deficit, right sided numbness, right sided weakness, seizure, speech problems, tingling, tremors, we akness, others Musculoskeletal: denies: back pain, gout, joint pain, joint swelling, muscle pain, muscle stiffness, neck pain, others Integumetry: denies: bruises, change in color, change in hair/nails, dryness, laceration, lesions, lumps, rash, wounds, others Allergic/Immunocompromised: denies: Difficulty Healing, Frequent Infections, Hives, Itching, others Hematologic/Lymphatic: denies: anemia, blood clots, easy bleeding, easy bruising, swollen glands, others Endocrine: denies: excessive hunger, excessive sweating, excessive thirst, excessive urination, flushing, intolerance to cold, intolerance to heat, unexplained weight gain, unexplained weight loss, others Psychiatric: denies: anxiety, bipolar disorder, depression, hopeless, panic disorder, schizophrenia, sleepless, suicidal, others All Other Systems: Reviewed and Negative Physical Exam General Appearance: Mild Distress, Other (Ill-appearing) HEENT: Normal ENT Inspection Neck: Full Range of Motion, Normal Inspection Respiratory: Decreased Breath Sounds, No Accessory Muscle Use, Respiratory Distress (Mild), Rhonchi Cardiovascular: No Edema, No JVD, Tachycardia Breast Exam: Deferred Gastrointestinal: Non Tender, Soft Genitalia: Deferred Pelvic: Deferred Rectal: Deferred Extremities: Normal inspection, Normal range of motion, Non-tender, No pedal edema Neurologic: Alert (Oriented x4), Normal Affect, Normal Mood, Other (Moves all extremities, no gross focal deficit) Cerebellar Function: NOT DONE Reflexes: NOT DONE Skin: Dry, Normal Color, Warm Lymphatic: NOT DONE Was a procedure done? Was a procedure done?: No EKG EKG : Comments Sinus tach, rate 110, normal intervals, left axis deviation, possible old inferior or anteroseptal infarct, nonspecific T change Differential Dx Considerations may include: URI, bronchitis, pneumonia, COPD, asthma, CHF, arrhythmia, ND, sepsis, among others X-Ray, Labs, Meds, VS Vital Signs Date Time Temp Pulse Resp B/P (MAP) Pulse Ox O2 Delivery O2 Flow Rate FiO2 02/20/24 15:36 28 84 Room Air* 0 21 02/20/24 14:24 110 02/20/24 14:05 100.1 116 22 135/59 (84) 81 Lab Test 02/20/24 18:04 02/20/24 15:46 02/20/24 15:38 02/20/24 14:54 Range/Units Troponin I High Sensitivity < 3 L 3 L < 3 L </=34 ng/L Lactic Acid Level 0.9 0.4-2.0 mmol/L White Blood Count 10.7 4.4-10.8 10^3/uL Red Blood Count 4.85 4.0-5.20 10^6/uL Hemoglobin 14.8 12.2-16.2 g/dL Hematocrit 44.0 36.0-46.0 % Mean Corpuscular Volume 90.8 80.0-100.0 fL Mean Corpuscular Hemoglobin 30.5 28.0-32.0 pg Mean Corpuscular Hemoglobin Concent 33.6 32.0-36.0 g/dL Red Cell Distribution Width 14.3 11.8-14.3 % Platelet Count 164 140-450 10^3/uL Mean Platelet Volume 8.8 6.9-10.8 fL Neutrophils (%) (Auto) 53.5 37.0-80.0 % Lymphocytes (%) (Auto) 33.7 10.0-50.0 % Monocytes (%) (Auto) 10.1 0.0-12.0 % Eosinophils (%) (Auto) 1.7 0.0-7.0 % Basophils (%) (Auto) 1.0 0.0-2.0 % Neutrophils # (Auto) 5.7 1.6-8.6 10 ^3/uL Lymphocytes # (Auto) 3.6 0.4-5.4 10 ^3/uL Monocytes # (Auto) 1.1 0-1.3 10 ^3/uL Eosinophils # (Auto) 0.2 0-0.8 10 ^3/uL Basophils # (Auto) 0.1 0-0.2 10 ^3/uL Nucleated Red Blood Cells 0.2 % Sodium Level 138 136-145 mmol/L Potassium Level 4.8 3.5-5.1 mmol/L Chloride Level 102 98-107 mmol/L Carbon Dioxide Level 24 20-31 mmol/L Anion Gap 12 5-15 Blood Urea Nitrogen 16 9-23 mg/dL Creatinine 0.78 0.550-1.02 mg/dL Glomerular Filtration Rate Calc 79 >90 mL/min BUN/Creatinine Ratio 20.5 H 10.0-20.0 Serum Glucose 98 74-106 mg/dL Calcium Level 9.5 8.7-10.4 mg/dL Total Bilirubin 0.6 0.2-1.0 mg/dL Aspartate Amino Transferase (AST) 40 13-40 U/L Alanine Aminotransferase (ALT) 36 7-40 U/L Alkaline Phosphatase 81 46-116 U/L B-Type Natriuretic Peptide 39.06 0-100 pg/mL Total Protein 7.0 5.7-8.2 g/dL Albumin 4.3 3.2-4.8 g/dL Current Medications Medications (Trade) Dose Ordered Sig/Abelardo Route Start Time Stop Time Status Last Admin Albuterol (Ventolin Medneb) 5 mg ONCE ONCE NEB 02/20/24 15:15 02/20/24 15:16 DC 02/20/24 15:36 Ipratropium [place] (Atrovent Medneb) 0.5 mg ONCE ONCE NEB 02/20/24 15:15 02/20/24 15:16 DC 02/20/24 15:36 PROCEDURE(s): CXRP - CHEST PORTABLE REASON: sob ORDER NUMBER(s): [id number], ACCESSION NUMBER(s): [id number] CLINICAL INFORMATION: 73 years old, Female; shortness of breath. TECHNIQUE: Single AP portable chest radiograph was obtained. COMPARISON: None FINDINGS: Lungs: Low lung volumes with mild bibasilar atelectasis. Bilateral interstitial opacities. Cardiac: Prominence of the pulmonary vasculature. Pulmonary vasculature: Unremarkable. Mediastinum/emmanuel: Dense atherosclerotic calcification of the aortic arch. Bones: No acute osseous abnormality identified. Other: No other significant findings. IMPRESSION: Bilateral interstitial opacities. May be due to interstitial pulmonary edema or atypical infectious process in the appropriate clinical setting. Correlate with clinical findings. X-Ray, Labs, Meds, VS Comment 73-year-old female with a history of heart disease, hypertension, diabetes, brought in by family for evaluation of cough, congestion, fever and shortness of breath Vitals remarkable for temperature 100.1, heart rate 116, respiratory rate 22, BP 135/59, oxygen saturation 81% on room air Exam remarkable for mild respiratory distress, scattered rhonchi and rales, diminished breath sounds Chest x-ray IMPRESSION: Bilateral interstitial opacities. May be due to interstitial pulmonary edema or atypical infectious process in the appropriate clinical setting. Correlate with clinical findings. EKG sinus tach, nonspecific T changes CBC, comprehensive metabolic panel, lactate, BNP and troponins unremarkable for any abnormality of acute significance Patient treated with the following in the ED: Albuterol 5 mg/Atrovent 0.5 mg nebulized, Rocephin 1 g IV, Zithromax 500 mg IV On re-evaluation, patient is resting comfortably on nasal cannula oxygen. Plan is to admit the patient for IV antibiotics and respiratory support as needed Time of 1ST Reevaluation: 15:10 Reevaluation 1ST: Unchanged Time of 2ND Reevaluation: 19:32 Reevaluation 2ND: Improved Patient Education/Counseling: Diagnosis, Treatment, Prognosis Family Education/Counseling: Diagnosis, Treatment, Prognosis Additional Information - The following tests were ordered, and results were reviewed by me: Labs, X- Ray, EKG, PHA - Additional information was gathered from interviewing the following independent Historian: Family - I reviewed and agreed with the following test results read by other provider: X-ray - I discussed treatments and results with medical personnel and: (consultants, family) Departure 1 Departure Time of Disposition: 19:32 Impression: Primary Impression: Pneumonia Qualified Codes: J18.9 - Pneumonia, unspecified organism Additional Impression: Hypoxia Disposition: 09 ADMITTED INPATIENT Admit to: Tele Condition: Guarded Critical Care Note Critical Care Time?: No Stability Stability form required: No Heart Score Heart Score: Heart Score Response (Comments) Value History N/A 0 EKG N/A 0 Age N/A 0 Risk Factors N/A 0 Troponin N/A 0 Total 0 I personally scribed for CAROLEE JONES MD ([email or web address]) on 02/20/24 at 15:21. Electronically submitted by Johnny Aguilar ([email or web address]). CAROLEE JONES MD Feb 20, 2024 15:21
[2024-02-20 15:23] LABS: Albumin 4.3 g/dL (3.2-4.8); Aspartate Aminotransferase 40 U/L (13-40); BUN/Creatinine Ratio 20.5 (10.0-20.0); Bilirubin, Total 0.6 mg/dL (0.2-1.0)
[2024-02-20] MEDS: ALBUTEROL SULF 2.5 MG/0.5ML(0.5%) NEB SOLN NEB ONE (15:36)
[2024-02-20] MEDS: IPRATROPIUM BROM 0.5 MG/2.5ML INH SOL NEB ONE (15:36)
--- NOTE | 2024-02-20 17:03 | DVH ---
CLINICAL INFORMATION: 73 years old, Female; shortness of breath. TECHNIQUE: Single AP portable chest radiograph was obtained. COMPARISON: None FINDINGS: Lungs: Low lung volumes with mild bibasilar atelectasis. Bilateral interstitial opacities. Cardiac: Prominence of the pulmonary vasculature. Pulmonary vasculature: Unremarkable. Mediastinum/emmanuel: Dense atherosclerotic calcification of the aortic arch. Bones: No acute osseous abnormality identified. Other: No other significant findings. IMPRESSION: Bilateral interstitial opacities. May be due to interstitial pulmonary edema or atypical infectious p rocess in the appropriate clinical setting. Correlate with clinical findings.
[2024-02-20] MEDS ORDERED: cefTRIAXone 1GM/50ML D5W 50 ML IV ONE (19:30)
[2024-02-20] MEDS ORDERED: IPRATROPIUM BROM 0.5 MG/2.5ML INH SOL NEB PRN (19:45)
[2024-02-20] MEDS ORDERED: ONDANSETRON HCL 4 MG/2 ML VIAL IV PRN (19:45)
[2024-02-20] MEDS ORDERED: DEXTROSE (50%) 50ML SYRG IV PRN (19:45)
[2024-02-20] MEDS ORDERED: ALBUTEROL SULF 2.5 MG/0.5ML(0.5%) NEB SOLN NEB PRN (19:45)
--- NOTE | 2024-02-20 22:29 | DVHHP2 ---
History of Present Illness Reason for Visit: Shortness of breath History of Present Illness 73-year-old female presents for evaluation of a cough. Patient reports a four day history of having a productive cough with yellow phlegm with shortness for breath. Denies chest pain or palpitations. Denies fever or chills. No other acute complaints reported. Past Medical History Diabetes mellitus, hypertension, CHF, CVA, mi, thyroid Past Surgical History Cholecystectomy and appendectomy Family History Noncontributory Smoke: No ALCOHOL: none Drugs: None Lives: with Family Review of Systems Review of Systems Review of systems are currently negative otherwise addressed in HPI. Allergies: Coded Allergies: Ceftriaxone (Verified Allergy, Severe, 02/20/24) Codeine (Verified Allergy, Severe, 02/20/24) Levofloxacin (Verified Allergy, Severe, 02/20/24) Medications Current Medications Medications Dose Ordered Sig/Abelardo Route Start Time Stop Time Status Last Admin Dose Admin Doxycycline Hyclate 250 ml @ 125 mls/hr Q12H IV 02/20/24 19:45 UNV Albuterol 2.5 mg Q6HPRN PRN NEB 02/20/24 19:45 Ipratropium [place] 0.5 mg Q6HPRN PRN NEB 02/20/24 19:45 Pantoprazole Sodium 40 mg DAILY@0600 PO 02/21/24 06:00 Duloxetine HCl 30 mg DAILY PO 02/21/24 10:00 Sacubitril/ Valsartan 1 tab BID PO 02/20/24 22:00 Levothyroxine Sodium 75 mcg QAM@0600 PO 02/21/24 06:00 Atorvastatin Calcium 40 mg HS PO 02/20/24 22:00 Diagnostic Test (Pha) 1 strip ACHS 02/20/24 22:00 Insulin Human Regular HS SC 02/20/24 22:00 Insulin Human Regular AC SC 02/21/24 07:00 Dextrose 50 ml UD PRN IV 02/20/24 19:45 Ondansetron HCl 4 mg Q4HP PRN IV 02/20/24 19:45 Enoxaparin Sodium 40 mg DAILY SC 02/21/24 10:00 Acetaminophen 650 mg Q6HP PRN PO 02/20/24 19:45 Exam Vital Signs Vital Signs Date Time Temp Pulse Resp B/P (MAP) Pulse Ox O2 Delivery O2 Flow Rate FiO2 02/20/24 15:36 28 84 Room Air* 0 21 02/20/24 14:24 110 02/20/24 14:05 100.1 135/59 (84) Exam Gen: 73-year-old female in mild distress Skin: Warm, dry, normal color and texture, no rash. HEENT: Normocephalic atraumatic, mucous membranes moist and pink. Neck: Cervical and supraclavicular nodes normal without enlargement, trachea is midline, thyroid gland is normal without masses. Pulmonary: Diminished breath sounds bilaterally Cardiac: Regular rate and rhythm. No murmur Abdomen: Soft, nontender, nondistended, bowel sounds present all 4 quadrants, no guarding, no rigidity, no organomegaly. Extremities: No cyanosis, clubbing, no edema Neuro: Cranial nerves II through XII grossly intact, normal affect and speech, no focal motor deficits. Labs/Xrays ORDERING PHYSICIAN: CAROLEE JONES MD PROCEDURE(s): CXRP - CHEST PORTABLE REASON: sob ORDER NUMBER(s): [id number], ACCESSION NUMBER(s): [id number] CLINICAL INFORMATION: 73 years old, Female; shortness of breath. TECHNIQUE: Single AP portable chest radiograph was obtained. COMPARISON: None FINDINGS: Lungs: Low lung volumes with mild bibasilar atelectasis. Bilateral interstitial opacities. Cardiac: Prominence of the pulmonary vasculature. Pulmonary vasculature: Unremarkable. Mediastinum/emmanuel: Dense atherosclerotic calcification of the aortic arch. Bones: No acute osseous abnormality identified. Other: No other significant findings. IMPRESSION: Bilateral interstitial opacities. May be due to interstitial pulmonary edema or aty Labs Test 02/20/24 18:04 02/20/24 15:46 02/20/24 14:54 Range/Units Troponin I High Sensitivity < 3 L </=34 ng/L Lactic Acid Level 0.9 0.4-2.0 mmol/L White Blood Count 10.7 4.4-10.8 10^3/uL Red Blood Count 4.85 4.0-5.20 10^6/uL Hemoglobin 14.8 12.2-16.2 g/dL Hematocrit 44.0 36.0-46.0 % Mean Corpuscular Volume 90.8 80.0-100.0 fL Mean Corpuscular Hemoglobin 30.5 28.0-32.0 pg Mean Corpuscular Hemoglobin Concent 33.6 32.0-36.0 g/dL Red Cell Distribution Width 14.3 11.8-14.3 % Platelet Count 164 140-450 10^3/uL Mean Platelet Volume 8.8 6.9-10.8 fL Neutrophils (%) (Auto) 53.5 37.0-80.0 % Lymphocytes (%) (Auto) 33.7 10.0-50.0 % Monocytes (%) (Auto) 10.1 0.0-12.0 % Eosinophils (%) (Auto) 1.7 0.0-7.0 % Basophils (%) (Auto) 1.0 0.0-2.0 % Neutrophils # (Auto) 5.7 1.6-8.6 10 ^3/uL Lymphocytes # (Auto) 3.6 0.4-5.4 10 ^3/uL Monocytes # (Auto) 1.1 0-1.3 10 ^3/uL Eosinophils # (Auto) 0.2 0-0.8 10 ^3/uL Basophils # (Auto) 0.1 0-0.2 10 ^3/uL Nucleated Red Blood Cells 0.2 % Sodium Level 138 136-145 mmol/L Potassium Level 4.8 3.5-5.1 mmol/L Chloride Level 102 98-107 mmol/L Carbon Dioxide Level 24 20-31 mmol/L Anion Gap 12 5-15 Blood Urea Nitrogen 16 9-23 mg/dL Creatinine 0.78 0.550-1.02 mg/dL Glomerular Filtration Rate Calc 79 >90 mL/min BUN/Creatinine Ratio 20.5 H 10.0-20.0 Serum Glucose 98 74-106 mg/dL Calcium Level 9.5 8.7-10.4 mg/dL Total Bilirubin 0.6 0.2-1.0 mg/dL Aspartate Amino Transferase (AST) 40 13-40 U/L Alanine Aminotransferase (ALT) 36 7-40 U/L Alkaline Phosphatase 81 46-116 U/L B-Type Natriuretic Peptide 39.06 0-100 pg/mL Total Protein 7.0 5.7-8.2 g/dL Albumin 4.3 3.2-4.8 g/dL Assessment/Plan Assessment/Plan Assessment Community-acquired pneumonia Acute on chronic hypoxic respiratory failure Hypertension Hypothyroid Plan Admit the patient to [facility] to the hospitalist Doxycycline Med nebs Resume home medications Continue treatment per orders. Plan discussed with: Patient My Orders Orders - TENA NOVAK Procedure Category Date Status Time Doxycycline PHA 02/20/24 Pending 100mg/250ml 19:45 Albuterol Medneb PHA 02/20/24 In Process (Ventolin Medneb) 19:45 Ipratropium Medneb PHA 02/20/24 In Process (Atrovent Medneb) 19:45 Pantoprazole Tablet PHA 02/21/24 In Process (Protonix Tablet) 06:00 Duloxetine Hcl PHA 02/21/24 In Process Capsule (Cymbalta 10:00 Sacubitril-Valsartan PHA 02/20/24 In Process (Entresto 24-26 Mg 22:00 Levothyroxine Tablet PHA 02/21/24 In Process (Synthroid Tablet) 06:00 Atorvastatin (Lipitor) PHA 02/20/24 In Process 22:00 Basic Metabolic Panel LAB 02/21/24 Verified 04:00 Consistent DIET 02/21/24 Transmitted Carb(Ccho)Diabetes Breakfast Glucose Blood PHA 02/20/24 In Process (Accu-Chek Comfort 22:00 Insulin R (Human) PHA 02/20/24 In Process (Insulin R) 22:00 Insulin R (Human) PHA 02/21/24 In Process (Insulin R) 07:00 Dextrose 50% Syringe PHA 02/20/24 In Process 19:45 Admit ADMIT 02/20/24 Transmitted 19:39 Ondansetron Hcl PHA 02/20/24 In Process (Zofran) 19:45 Enoxaparin Sodium PHA 02/21/24 In Process (Lovenox) 10:00 Cardiac DIET 02/21/24 Transmitted Diet-2gna,Lofat,Lochol Breakfast Condition: Stable LAKSHMI 02/20/24 In Process 19:39 Acetaminophen Tablet PHA 02/20/24 In Process (Tylenol Tablet) 19:45 Bedrest With Bathroom LAKSHMI 02/20/24 In Process Privileg 19:39 Date of Service: Feb 20, 2024 Billing Provider: TENA NOVAK Common Visit Codes: [id number] INP/OBS CARE (HIGH) TENA NOVAK Feb 20, 2024 22:29
[2024-02-20] MEDS: AZITHROMYCIN 500MG/ 250ML 250 ML IV ONE (22:37)
[2024-02-20] MEDS: ATORVASTATIN 20 MG TAB PO SCH (22:37)
[2024-02-20] MEDS: SACUBITRIL-VALSARTAN 24mg/26mg TAB PO SCH (22:37)
[2024-02-20 22:41] VITALS: BP 112/50; PULSE 83; RESP 18; TEMP 100.1; O2SAT 97
[2024-02-20] MEDS: InsuLIN REG 1unit/0.01ml Soln (100units/ml) SC SCH (23:31)
[2024-02-20] MEDS: ACCU-CHEK COMFORT CURVE STRIP VI SCH (23:35)
[2024-02-21] MEDS: DOXYCYCLINE 100MG/250ML 250 ML IV SCH (00:26)
[2024-02-21 05:49] LABS: Chloride 102 mmol/L (98-107); Potassium 3.9 mmol/L (3.5-5.1); Sodium 137 mmol/L (136-145)
[2024-02-21 05:50] LABS: Anion Gap 10 (5-15); Carbon Dioxide 25 mmol/L (20-31)
[2024-02-21 05:51] LABS: Calcium 9.3 mg/dL (8.7-10.4)
[2024-02-21 05:56] LABS: BUN/Creatinine Ratio 18.7 (10.0-20.0); Blood Urea Nitrogen 14 mg/dL (9-23)
[2024-02-21 05:58] LABS: Glucose 121 mg/dL (74-106)
[2024-02-21] MEDS: PANTOPRAZOLE 40 MG TAB PO SCH (06:11)
[2024-02-21] MEDS: LEVOTHYROXINE SODIUM 25 MCG TAB PO SCH (06:12)
[2024-02-21] MEDS: InsuLIN REG 1unit/0.01ml Soln (100units/ml) SC SCH (07:16)
[2024-02-21 08:00] VITALS: PULSE 77; RESP 19; O2SAT 97
[2024-02-21 08:46] LABS: Urine Bacteria None Seen /hpf (None Seen)
[2024-02-21 08:57] LABS: Urine Blood Negative /uL (Negative); Urine Clarity Clear (Clear); Urine Color Light-Yellow (Yellow); Urine Protein, UAD Negative (Negative); Urine Specific Gravity 1.005 (1.001-1.035); Urine Urobilinogen Normal (Negative); Urine WBC 1 /hpf (0 - 5)
[2024-02-21 10:05] VITALS: O2SAT 98
[2024-02-21] MEDS: ENOXAPARIN SOD 40 MG/0.4 ML SYRINGE SC SCH (10:16)
[2024-02-21] MEDS: DULoxetine HCL 30 MG CAP PO SCH (10:16)
[2024-02-21 11:33] LABS: COVID19 ANTIGEN SOFIA FIA NEGATIVE (NEGATIVE); Rapid Influenza A Negative (Negative); Rapid Influenza B Negative (Negative)
[2024-02-21] MEDS ORDERED: cefTRIAXone 1GM/50ML D5W 50 ML IV ONE (16:15)
[2024-02-21] MEDS: AZITHROMYCIN 500MG/ 250ML 250 ML IV ONE (17:23)
[2024-02-21 20:00] VITALS: PULSE 75; PULSE 81; RESP 18
[2024-02-21 21:00] VITALS: BP 113/48; PULSE 81; RESP 18; TEMP 97.5; O2SAT 97
--- NOTE | 2024-02-21 23:51 | DVHPN2 ---
Subjective 73-year-old female presents for evaluation of a cough. Patient reports a four day history of having a productive cough with yellow phlegm with shortness for breath. Denies chest pain or palpitations. Denies fever or chills. No other acute complaints reported. Update -02/20-she continues to shortness of breath and cough. But she is feeling improved. She is urinating ample amount with prior given Lasix push. Reviewed: H&P Changes from previous H/P or p: No Changes General: Per HPI Objective Vitals Vital Signs Date Time Temp Pulse Resp B/P (MAP) Pulse Ox O2 Delivery O2 Flow Rate FiO2 02/21/24 21:00 97.5 81 18 113/48 (69) 97 97.5 02/21/24 18:30 Nasal Cannula* 2 28 Intake/Output Intake and Output 02/21/24 07:00 Intake Total 500 ml Balance 500 ml Intake IV Total 500 ml Exam GEN: Healthy appearing, well-developed, NAD. HEENT: NC/AT; MMM. CV: RRR, no m/r/g. LUNGS: Rales up to upper lobes bilaterally. ABD: Soft, NT/ND, NBS, no masses or organomegaly. EXT: skin Warm, well perfused. no rashes. No clubbing, cyanosis, or edema. No pitting edema in lower extremities. NEURO: Ambulating with no limitations. No focal deficits. Medications Current Medications Medications Dose Ordered Sig/Abelardo Route Start Time Stop Time Status Last Admin Dose Admin Albuterol 2.5 mg Q6HPRN PRN NEB 02/20/24 19:45 Cancel Ipratropium [place] 0.5 mg Q6HPRN PRN NEB 02/20/24 19:45 Cancel Pantoprazole Sodium 40 mg DAILY@0600 PO 02/21/24 06:00 02/21/24 06:11 40 MG Duloxetine HCl 30 mg DAILY PO 02/21/24 10:00 02/21/24 10:16 30 MG Sacubitril/ Valsartan 1 tab BID PO 02/20/24 22:00 02/21/24 20:34 1 TAB Levothyroxine Sodium 75 mcg QAM@0600 PO 02/21/24 06:00 02/21/24 06:12 75 MCG Atorvastatin Calcium 40 mg HS PO 02/20/24 22:00 02/21/24 20:34 40 MG Diagnostic Test (Pha) 1 strip ACHS 02/20/24 22:00 02/21/24 17:09 1 STRIP Insulin Human Regular HS SC 02/20/24 22:00 02/20/24 23:31 3 UNITS Insulin Human Regular AC SC 02/21/24 07:00 02/21/24 11:30 3 UNITS Dextrose 50 ml UD PRN IV 02/20/24 19:45 Ondansetron HCl 4 mg Q4HP PRN IV 02/20/24 19:45 Enoxaparin Sodium 40 mg DAILY SC 02/21/24 10:00 02/21/24 10:16 40 MG Acetaminophen 650 mg Q6HP PRN PO 02/20/24 19:45 Ceftriaxone Sodium 50 ml @ 100 mls/hr DAILY@09 IV 02/22/24 09:00 UNV Azithromycin 250 ml @ 125 mls/hr DAILY IV 02/22/24 10:00 Laboratory Results Laboratory Tests 02/20/24 14:54 02/21/24 04:39 Chemistry Test 02/21/24 04:39 Calcium Level 9.3 mg/dL (8.7-10.4) Urinalysis Test 02/21/24 08:37 Urine Color Light-yellow (Yellow) Urine Clarity Clear (Clear) Urine pH 6.0 (5.0-9.0) Urine Specific [place] 1.005 (1.001-1.035) Urine Protein Negative (Negative) Urine Ketones Negative (Negative) Urine Blood Negative /uL (Negative) Urine Nitrite Negative (Negative) Urine Bilirubin Negative (Negative) Urine Urobilinogen Normal mg/dL (Negative) Urine Leukocyte Esterase Negative /uL (Negative) Urine RBC None seen /hpf (0 - 4) Urine WBC 1 /hpf (0 - 5) Urine Squamous Epithelial Cells None seen /hpf (<5) Urine Bacteria None seen /hpf (None Seen) Urine Glucose Normal mg/dL (Normal) Labs and/or images reviewed: Labs reviewed by me, Image(s) reviewed by me Assessment/Plan Assessment/Plan Update -02/20-she continues to shortness of breath and cough. But she is feeling improved. She is urinating ample amount with prior given Lasix push. Pneumonia History of CHF History of angina Hypertension -presentation patient has low-grade fevers, tachycardia tachypnea and has soft pressures - CXR consistent with concern for pneumonia, there is bilateral interstitial opacities - patient is volume overload but her clinical picture also does match pneumonia. We will treat it as volume overload and pneumonia -IV antibiotics -IV diuresis -cardiac diet and diabetic diet Diabetes [id number] with SSI Hypertension- hold home p.o. meds (Entresto) Hypothyroid-continue Synthroid home dose. hx CVA Diet cardiac/diabetic DVT prophylaxis-Lovenox GI prophylaxis home Protonix tablets p.o. daily Med surge Plan discussed with: Patient My Orders Orders - SHEEBA GAMBOA MD Procedure Category Date Status Time Azithromycin 500mg/ PHA 02/22/24 In Process 250ml (Zithromax 50 10:00 Echo 2d Mode Cardiac US 02/21/24 Logged DOP 16:21 Check Postvoid LAKSHMI 02/21/24 In Process Residual 16:22 Date of Service: Feb 21, 2024 Billing Provider: SHEEBA GAMBOA MD Common Visit Codes: [id number] INP/OBS CARE(HIGH) SHEEBA GAMBOA MD Feb 21, 2024 23:51
[2024-02-22] MEDS: AMPICILLIN & SULBACTAM SODIUM 3 GM in SODIUM CHL 0.9% 100 ML IV SCH (00:45)
[2024-02-22 01:00] VITALS: BP 103/45; PULSE 82; RESP 19; TEMP 98.3; O2SAT 96
[2024-02-22 05:00] VITALS: BP 99/50; PULSE 73; RESP 20; TEMP 97.8; O2SAT 98
[2024-02-22 08:13] LABS: Basophils # (auto) 0.1 10 ^3/uL (0-0.2); Basophils % (auto) 0.7 % (0.0-2.0); Eosinophils # (auto) 0.6 10 ^3/uL (0-0.8); Eosinophils % (auto) 6.4 % (0.0-7.0); Hematocrit 39.8 % (36.0-46.0); Hemoglobin 13.6 g/dL (12.2-16.2); Lymphocytes # (auto) 3.7 10 ^3/uL (0.4-5.4); Mean Corpuscular Hemoglobin 30.9 pg (28.0-32.0); Mean Corpuscular Hgb Conc. 34.1 g/dL (32.0-36.0); Mean Corpuscular Volume 90.4 fL (80.0-100.0); Monocytes # (auto) 1.5 10 ^3/uL (0-1.3); Monocytes % (auto) 16.9 % (0.0-12.0); Platelet Count (auto) 157 10^3/uL (140-450); Red Cell Distribution Width 14.4 % (11.8-14.3); White Blood Cell 8.9 10^3/uL (4.4-10.8)
[2024-02-22 08:23] LABS: Alanine Aminotransferase 21 U/L (7-40); Alkaline Phosphatase 62 U/L (46-116); Aspartate Aminotransferase 22 U/L (13-40); Calcium 9.2 mg/dL (8.7-10.4)
[2024-02-22 08:24] LABS: Albumin 3.7 g/dL (3.2-4.8); Anion Gap 6 (5-15); BUN/Creatinine Ratio 19.3 (10.0-20.0); Bilirubin, Total 0.5 mg/dL (0.2-1.0); Blood Urea Nitrogen 16 mg/dL (9-23); Carbon Dioxide 29 mmol/L (20-31); Chloride 105 mmol/L (98-107); Glucose 113 mg/dL (74-106); Potassium 4.1 mmol/L (3.5-5.1); Sodium 140 mmol/L (136-145); Total Protein 6.4 g/dL (5.7-8.2)
[2024-02-22 09:00] VITALS: BP 126/53; PULSE 78; RESP 17; TEMP 98.2; O2SAT 97
[2024-02-22] MEDS ORDERED: cefTRIAXone 1GM/50ML D5W 50 ML IV SCH (09:00)
[2024-02-22] MEDS: AZITHROMYCIN 500MG/ 250ML 250 ML IV SCH (09:22)
[2024-02-22] MEDS: MIDODRINE HCL 10 MG TAB PO SCH (12:24)
[2024-02-22 13:19] VITALS: BP 113/42; PULSE 69; RESP 16; TEMP 98; O2SAT 97
[2024-02-22 16:44] VITALS: BP 115/42; PULSE 79; RESP 16; TEMP 98.3; O2SAT 97
[2024-02-22] MEDS: FUROSEMIDE 40 MG/4 ML VIAL IV SCH (17:17)
[2024-02-22 21:00] VITALS: BP 127/51; PULSE 78; RESP 19; TEMP 97.4; O2SAT 97
--- NOTE | 2024-02-22 21:42 | DVHPN2 ---
Subjective 73-year-old female presents for evaluation of a cough. Patient reports a four day history of having a productive cough with yellow phlegm with shortness for breath. Denies chest pain or palpitations. Denies fever or chills. No other acute complaints reported. Update -02/20-she continues to shortness of breath and cough. But she is feeling improved. She is urinating ample amount with prior given Lasix push. - 02/21 - feels improved but still has some SOB. cough also ongoing but improved. Reviewed: H&P Changes from previous H/P or p: No Changes General: Per HPI Objective Vitals Vital Signs Date Time Temp Pulse Resp B/P (MAP) Pulse Ox O2 Delivery O2 Flow Rate FiO2 02/22/24 17:17 115/42 02/22/24 16:44 98.3 79 16 97 98.3 02/22/24 08:00 Room Air* 0 21 Intake/Output Intake and Output 02/22/24 07:00 Intake Total 800 ml Balance 800 ml Intake Oral 550 ml IV Total 250 ml # Voids 4 Exam GEN: Healthy appearing, well-developed, NAD. HEENT: NC/AT; MMM. CV: RRR, no m/r/g. LUNGS: Rales up to upper lobes bilaterally. ABD: Soft, NT/ND, NBS, no masses or organomegaly. EXT: skin Warm, well perfused. no rashes. No clubbing, cyanosis, or edema. No pitting edema in lower extremities. NEURO: Ambulating with no limitations. No focal deficits. Medications Current Medications Medications Dose Ordered Sig/Abelardo Route Start Time Stop Time Status Last Admin Dose Admin Albuterol 2.5 mg Q6HPRN PRN NEB 02/20/24 19:45 Cancel Ipratropium [place] 0.5 mg Q6HPRN PRN NEB 02/20/24 19:45 Cancel Pantoprazole Sodium 40 mg DAILY@0600 PO 02/21/24 06:00 02/22/24 05:09 40 MG Duloxetine HCl 30 mg DAILY PO 02/21/24 10:00 02/21/24 10:16 30 MG Levothyroxine Sodium 75 mcg QAM@0600 PO 02/21/24 06:00 02/22/24 05:09 75 MCG Atorvastatin Calcium 40 mg HS PO 02/20/24 22:00 02/21/24 20:34 40 MG Diagnostic Test (Pha) 1 strip ACHS 02/20/24 22:00 02/22/24 17:14 1 STRIP Insulin Human Regular HS SC 02/20/24 22:00 02/21/24 22:00 4 UNITS Insulin Human Regular AC SC 02/21/24 07:00 02/22/24 12:31 2 UNITS Dextrose 50 ml UD PRN IV 02/20/24 19:45 Ondansetron HCl 4 mg Q4HP PRN IV 02/20/24 19:45 Enoxaparin Sodium 40 mg DAILY SC 02/21/24 10:00 02/22/24 09:23 40 MG Acetaminophen 650 mg Q6HP PRN PO 02/20/24 19:45 Ceftriaxone Sodium 50 ml @ 100 mls/hr DAILY@09 IV 02/22/24 09:00 UNV Azithromycin 250 ml @ 125 mls/hr DAILY IV 02/22/24 10:00 02/22/24 09:22 125 MLS/HR Ampicillin Sodium/ Sulbactam Sodium 3 gm/Sodium Chloride 100 ml @ 100 mls/hr Q6H IV 02/22/24 00:45 02/22/24 18:50 100 MLS/HR Midodrine 5 mg TID@0600,1200,1800 PO 02/22/24 12:00 02/22/24 17:17 5 MG Furosemide 40 mg BIDD IV 02/22/24 18:00 02/22/24 17:17 40 MG Laboratory Results Laboratory Tests 02/22/24 07:38 Chemistry Test 02/22/24 07:38 Albumin 3.7 g/dL (3.2-4.8) Calcium Level 9.2 mg/dL (8.7-10.4) Total Protein 6.4 g/dL (5.7-8.2) LFT Test 02/22/24 07:38 Alanine Aminotransferase (ALT) 21 U/L (7-40) Alkaline Phosphatase 62 U/L (46-116) Aspartate Amino Transferase (AST) 22 U/L (13-40) Total Bilirubin 0.5 mg/dL (0.2-1.0) Urinalysis Test 02/21/24 08:37 Urine Color Light-yellow (Yellow) Urine Clarity Clear (Clear) Urine pH 6.0 (5.0-9.0) Urine Specific [place] 1.005 (1.001-1.035) Urine Protein Negative (Negative) Urine Ketones Negative (Negative) Urine Blood Negative /uL (Negative) Urine Nitrite Negative (Negative) Urine Bilirubin Negative (Negative) Urine Urobilinogen Normal mg/dL (Negative) Urine Leukocyte Esterase Negative /uL (Negative) Urine RBC None seen /hpf (0 - 4) Urine WBC 1 /hpf (0 - 5) Urine Squamous Epithelial Cells None seen /hpf (<5) Urine Bacteria None seen /hpf (None Seen) Urine Glucose Normal mg/dL (Normal) Microbiology Microbiology Date/Time Source Procedure Growth Status 02/22/24 04:00 Nose MRSA Screen - Final Complete Labs and/or images reviewed: Labs reviewed by me, Image(s) reviewed by me Assessment/Plan Assessment/Plan Update - 02/21 - feels improved but still has some SOB. cough also ongoing but improved. Pneumonia, Gram-positive Gram-negative likely Acute on chronic, diastolic, CHF exacerbation History of angina Hypertension -presentation patient has low-grade fevers, tachycardia tachypnea and has soft pressures - CXR consistent with concern for pneumonia, there is bilateral interstitial opacities - patient is volume overload but her clinical picture also does match pneumonia. We will treat it as volume overload and pneumonia - echo recent admission shows EF 60%, mild TR/MR. -IV antibiotics -IV diuresis -cardiac diet and diabetic diet - if not improving will need CT and pulm Diabetes [id number] with SSI Hypertension- hold home p.o. meds (Entresto) Hypothyroid-continue Synthroid home dose. hx CVA Diet cardiac/diabetic DVT prophylaxis-Lovenox GI prophylaxis home Protonix tablets p.o. daily Med surge Plan discussed with: Patient My Orders Orders - SHEEBA GAMBOA MD Procedure Category Date Status Time Ampicillin & PHA 02/22/24 In Process Sulbactam Sodium 00:45 Midodrine Tablet PHA 02/22/24 In Process (Proamatine Tablet) 12:00 Furosemide Injection PHA 02/23/24 Logged (Lasix Injection) 06:00 Date of Service: Feb 22, 2024 Billing Provider: SHEEBA GAMBOA MD Common Visit Codes: [id number] INP/OBS CARE(HIGH) SHEEBA GAMBOA MD Feb 22, 2024 21:42
[2024-02-23] VITALS (12 sets, daily range): BP systolic 106–117; BP diastolic 40–58; PULSE 67–80; RESP 16–20; TEMP 97.4–98.2; O2SAT 96–99
[2024-02-23] MEDS: FUROSEMIDE 40 MG/4 ML VIAL IV SCH ×2 (06:06→11:18)
[2024-02-23 06:42] LABS: Alanine Aminotransferase 22 U/L (7-40); Albumin 3.8 g/dL (3.2-4.8); Alkaline Phosphatase 71 U/L (46-116); Anion Gap 8 (5-15); Aspartate Aminotransferase 24 U/L (13-40); BUN/Creatinine Ratio 22.1 (10.0-20.0); Basophils # (auto) 0.1 10 ^3/uL (0-0.2); Basophils % (auto) 0.9 % (0.0-2.0); Bilirubin, Total 0.5 mg/dL (0.2-1.0); Blood Urea Nitrogen 21 mg/dL (9-23); Calcium 9.4 mg/dL (8.7-10.4); Carbon Dioxide 29 mmol/L (20-31); Chloride 103 mmol/L (98-107); Eosinophils # (auto) 0.7 10 ^3/uL (0-0.8); Eosinophils % (auto) 7.7 % (0.0-7.0); Hematocrit 39.3 % (36.0-46.0); Hemoglobin 13.4 g/dL (12.2-16.2); Lymphocytes # (auto) 3.9 10 ^3/uL (0.4-5.4); Lymphocytes % (auto) 41.3 % (10.0-50.0); Mean Corpuscular Hemoglobin 30.8 pg (28.0-32.0); Mean Corpuscular Volume 90.5 fL (80.0-100.0); Monocytes # (auto) 1.5 10 ^3/uL (0-1.3); Monocytes % (auto) 15.7 % (0.0-12.0); Neutrophils # (auto) 3.3 10 ^3/uL (1.6-8.6); Neutrophils % (auto) 34.4 % (37.0-80.0); Platelet Count (auto) 167 10^3/uL (140-450); Potassium 3.9 mmol/L (3.5-5.1); Red Blood Cells 4.34 10^6/uL (4.0-5.20); Red Cell Distribution Width 13.8 % (11.8-14.3); Sodium 140 mmol/L (136-145); Total Protein 6.7 g/dL (5.7-8.2); White Blood Cell 9.5 10^3/uL (4.4-10.8)
[2024-02-23 06:47] LABS: Glucose 120 mg/dL (74-106)
--- NOTE | 2024-02-23 11:00 | DVH ---
Procedure: CT CHEST WITHOUT CONTRAST Reason for study/Clinical History: Hypoxia. Rales. Comparison Study: None. Exam Date: 02/23/2024 10:14 AM TECHNIQUE: Multidetector CT of the chest was performed from the lung apices to the upper abdomen with out the use of intravenous contract. Axial, coronal and sagittal multiplanar reformats were performed . Radiation Dose Information: CT Dose: CTDI volume is 10.3 mGy. Dose-length product is 292 mGy*cm The dose indicators for CT are the volume Computed Tomography (CT) Dose Index (CTDIvol) and the Dose Length Product (DLP), and are measured in units of mGy and mGy-cm, respectively. These indicators are not patient dose, but values generated from the CT scanner acquisition factors. The report includes radiation exposure data for exposures received during this examination. Radiation optimization: All CT scans at this facility use at least one of these dose optimization jenni hniques: automated exposure control mA and/or kV adjustment per patient size (includes targeted exam s where dose is matched to clinical indication) or iterative reconstruction. FINDINGS Lungs: There are reticular interstitial changes with septal thickening and hazy ground-glass opacitie s along the periphery of the lungs, most notably in the left upper lobe. There is no obvious honeycom anish. There is mild associated bronchiectasis. There is elevation of the right hemidiaphragm with sc arring versus atelectasis in the right lung base. There is no focal lung consolidation. There is no suspicious appearing pulmonary nodule or mass. Heart/Vascular Structures: Normal heart size. No pericardial effusion. There are coronary artery calc ifications. Lymph Nodes: No significant thoracic lymphadenopathy. Pleura: No pleural effusion or significant pneumothorax. Musculoskeletal: No acute osseous abnormality. There is multilevel thoracic spondylosis. Soft tissues: Unremarkable. Upper abdomen: Gallbladder is surgically absent. The remaining solid abdominal viscera grossly appea rs unremarkable. IMPRESSION: 1. Reticular interstitial changes with septal thickening and hazy ground-glass opacities along the pe riphery of the lungs, most notably in the left upper lobe. There is mild associated bronchiectasis. There is no obvious honeycombing. Findings May relate to early changes of pulmonary fibrosis or pneum onitis. Clinical correlation is recommended. HS:Y
[2024-02-23] MEDS ORDERED: DEXTROSE (50%) 50ML SYRG IV PRN (16:30)
[2024-02-23] MEDS: InsuLIN REG 1unit/0.01ml Soln (100units/ml) SC SCH (17:00)
[2024-02-23] MEDS: ACCU-CHEK COMFORT CURVE STRIP VI SCH (18:20)
--- NOTE | 2024-02-23 18:57 | DVHPN2 ---
Subjective 73-year-old female presents for evaluation of a cough. Patient reports a four day history of having a productive cough with yellow phlegm with shortness for breath. Denies chest pain or palpitations. Denies fever or chills. No other acute complaints reported. Update -02/20-she continues to shortness of breath and cough. But she is feeling improved. She is urinating ample amount with prior given Lasix push. - 02/21 - feels improved but still has some SOB. cough also ongoing but improved. - 02/22 - she s at her new baseline. feels improved. but still has rales throughout all lung angel. this is appearing less like volume overload and may be process more limited to lungs. will need further imaging. Reviewed: H&P Changes from previous H/P or p: No Changes General: Per HPI Objective Vitals Vital Signs Date Time Temp Pulse Resp B/P (MAP) Pulse Ox O2 Delivery O2 Flow Rate FiO2 02/23/24 16:43 97.4 80 18 106/47 (66) 97 97.4 02/23/24 08:00 Room Air* 0 21 Intake/Output Intake and Output 02/23/24 07:00 Intake Total 2100 ml Output Total 1400 ml Balance 700 ml Intake Oral 1550 ml IV Total 550 ml Output Urine Total 1400 ml # Voids 6 Exam GEN: Healthy appearing, well-developed, NAD. HEENT: NC/AT; MMM. CV: RRR, no m/r/g. LUNGS: Rales up to upper lobes bilaterally. ABD: Soft, NT/ND, NBS, no masses or organomegaly. EXT: skin Warm, well perfused. no rashes. No clubbing, cyanosis, or edema. No pitting edema in lower extremities. NEURO: Ambulating with no limitations. No focal deficits. Medications Current Medications Medications Dose Ordered Sig/Abelardo Route Start Time Stop Time Status Last Admin Dose Admin Albuterol 2.5 mg Q6HPRN PRN NEB 02/20/24 19:45 Cancel Ipratropium [place] 0.5 mg Q6HPRN PRN NEB 02/20/24 19:45 Cancel Duloxetine HCl 30 mg DAILY PO 02/21/24 10:00 02/23/24 11:00 30 MG Levothyroxine Sodium 75 mcg QAM@0600 PO 02/21/24 06:00 02/23/24 06:05 75 MCG Atorvastatin Calcium 40 mg HS PO 02/20/24 22:00 02/22/24 22:06 40 MG Ondansetron HCl 4 mg Q4HP PRN IV 02/20/24 19:45 Enoxaparin Sodium 40 mg DAILY SC 02/21/24 10:00 02/23/24 11:01 40 MG Acetaminophen 650 mg Q6HP PRN PO 02/20/24 19:45 Ceftriaxone Sodium 50 ml @ 100 mls/hr DAILY@09 IV 02/22/24 09:00 UNV Azithromycin 250 ml @ 125 mls/hr DAILY IV 02/22/24 10:00 02/23/24 11:02 125 MLS/HR Midodrine 5 mg TID@0600,1200,1800 PO 02/22/24 12:00 02/23/24 17:47 5 MG Prednisone 40 mg DAILY PO 02/24/24 10:00 Ipratropium [place] 0.5 mg Q8HR NEB 02/23/24 22:00 Pantoprazole Sodium 40 mg DAILY IV 02/24/24 10:00 Diagnostic Test (Pha) 1 strip ACHS 02/23/24 17:00 02/23/24 18:20 1 STRIP Insulin Human Regular ACHS SC 02/23/24 17:00 Dextrose 50 ml UD PRN IV 02/23/24 16:30 Ampicillin Sodium/ Sulbactam Sodium 3 gm/Sodium Chloride 100 ml @ 100 mls/hr Q6H IV 02/23/24 20:00 Laboratory Results Laboratory Tests 02/23/24 05:47 Chemistry Test 02/23/24 05:47 Albumin 3.8 g/dL (3.2-4.8) Calcium Level 9.4 mg/dL (8.7-10.4) Total Protein 6.7 g/dL (5.7-8.2) LFT Test 02/23/24 05:47 Alanine Aminotransferase (ALT) 22 U/L (7-40) Alkaline Phosphatase 71 U/L (46-116) Aspartate Amino Transferase (AST) 24 U/L (13-40) Total Bilirubin 0.5 mg/dL (0.2-1.0) Urinalysis Test 02/21/24 08:37 Urine Color Light-yellow (Yellow) Urine Clarity Clear (Clear) Urine pH 6.0 (5.0-9.0) Urine Specific [place] 1.005 (1.001-1.035) Urine Protein Negative (Negative) Urine Ketones Negative (Negative) Urine Blood Negative /uL (Negative) Urine Nitrite Negative (Negative) Urine Bilirubin Negative (Negative) Urine Urobilinogen Normal mg/dL (Negative) Urine Leukocyte Esterase Negative /uL (Negative) Urine RBC None seen /hpf (0 - 4) Urine WBC 1 /hpf (0 - 5) Urine Squamous Epithelial Cells None seen /hpf (<5) Urine Bacteria None seen /hpf (None Seen) Urine Glucose Normal mg/dL (Normal) Microbiology Microbiology Date/Time Source Procedure Growth Status 02/22/24 04:00 Nose MRSA Screen - Final Complete Labs and/or images reviewed: Labs reviewed by me, Image(s) reviewed by me Assessment/Plan Assessment/Plan Update - 02/22 - she s at her new baseline. feels improved. but still has rales throughout all lung angel. this is appearing less like volume overload and may be process more limited to lungs. will need further imaging. Acute hypoxic respiratory failure History of Covid19 infection pulmonary fibrosis Pneumonia, Gram-positive Gram-negative likely Acute on chronic, diastolic, CHF exacerbation, possible History of angina; history negative [facility] Hypertension - presentation patient has low-grade fevers, tachycardia tachypnea and has soft pressures - CXR consistent with concern for pneumonia, there is bilateral interstitial opacities - patient is volume overload but her clinical picture also does match pneumonia. We will treat it as volume overload and pneumonia - echo recent admission shows EF 60%, mild TR/MR. - CT chest 02/22: Reticular interstitial changes with septal thickening and hazy ground-glass opacities along the periphery of the lungs, most notably in the left upper lobe. There is mild associated bronchiectasis. There is no obvious honeycombing. Findings May relate to early changes of pulmonary fibrosis or pneumonitis. - - IV antibiotics - will likely need work-up with pulm and iv steroids. - stop IV diuresis - cardiac diet and diabetic diet Diabetes [id number] with SSI Hypertension- hold home p.o. meds (Entresto) Hypothyroid-continue Synthroid home dose. hx CVA Diet cardiac/diabetic DVT prophylaxis-Lovenox GI prophylaxis home Protonix tablets p.o. daily Med surge Plan discussed with: Patient My Orders Orders - SHEEBA GAMBOA MD Procedure Category Date Status Time Chest Without Contrast CT 02/23/24 Resulted 09:52 *Consult CONS 02/23/24 Transmitted / 16:22 Pantoprazole PHA 02/24/24 In Process (Protonix) 10:00 Glucose Blood PHA 02/23/24 In Process (Accu-Chek Comfort 17:00 Insulin R (Human) PHA 02/23/24 In Process (Insulin R) 17:00 Dextrose 50% Syringe PHA 02/23/24 In Process 16:30 Ampicillin & PHA 02/23/24 In Process Sulbactam Sodium 20:00 Date of Service: Feb 23, 2024 Billing Provider: SHEEBA GAMBOA MD Common Visit Codes: [id number] INP/OBS CARE(HIGH) SHEEBA GAMBOA MD Feb 23, 2024 18:57
[2024-02-23] MEDS: AMPICILLIN & SULBACTAM SODIUM 3 GM in SODIUM CHL 0.9% 100 ML IV SCH (20:12)
[2024-02-23] MEDS: IPRATROPIUM BROM 0.5 MG/2.5ML INH SOL NEB SCH (21:06)
[2024-02-24] VITALS (14 sets, daily range): BP systolic 115–137; BP diastolic 50–73; PULSE 54–105; RESP 15–20; TEMP 97.5–98; O2SAT 92–100
[2024-02-24] MEDS: PANTOPRAZOLE 40 MG/10 ML VIAL INJ IV ONE (01:14)
[2024-02-24] MEDS: methylPREDNISolone SOD SUCC 125 MG/2 ML VL IV ONE (01:14)
[2024-02-24 07:10] LABS: Basophils # (auto) 0 10 ^3/uL (0-0.2); Basophils % (auto) 0.7 % (0.0-2.0); Eosinophils # (auto) 0 10 ^3/uL (0-0.8); Eosinophils % (auto) 0.4 % (0.0-7.0); Hematocrit 41.2 % (36.0-46.0); Lymphocytes # (auto) 1.4 10 ^3/uL (0.4-5.4); Mean Corpuscular Hemoglobin 30.5 pg (28.0-32.0); Mean Corpuscular Hgb Conc. 33.9 g/dL (32.0-36.0); Mean Corpuscular Volume 90.1 fL (80.0-100.0); Monocytes # (auto) 0.1 10 ^3/uL (0-1.3); Monocytes % (auto) 1.7 % (0.0-12.0); Neutrophils # (auto) 4.4 10 ^3/uL (1.6-8.6); Neutrophils % (auto) 73.2 % (37.0-80.0); Nucleated Red Blood Cells % 0.1 %; Platelet Count (auto) 184 10^3/uL (140-450); Red Blood Cells 4.58 10^6/uL (4.0-5.20); Red Cell Distribution Width 14.2 % (11.8-14.3)
[2024-02-24] MEDS: PANTOPRAZOLE 40 MG/10 ML VIAL INJ IV SCH (08:39)
[2024-02-24] MEDS: methylPREDNISolone SOD SUCC 40 MG/ML VL IV SCH (08:40)
[2024-02-24] MEDS: predniSONE 20 MG TAB PO SCH (08:40)
[2024-02-24 08:54] LABS: Alanine Aminotransferase 33 U/L (7-40); Albumin 3.9 g/dL (3.2-4.8); Alkaline Phosphatase 74 U/L (46-116); Anion Gap 10 (5-15); Aspartate Aminotransferase 34 U/L (13-40); BUN/Creatinine Ratio 22.7 (10.0-20.0); Bilirubin, Total 0.6 mg/dL (0.2-1.0); Blood Urea Nitrogen 22 mg/dL (9-23); Calcium 9.4 mg/dL (8.7-10.4); Carbon Dioxide 28 mmol/L (20-31); Chloride 102 mmol/L (98-107); Glucose 213 mg/dL (74-106); Potassium 4.3 mmol/L (3.5-5.1); Sodium 140 mmol/L (136-145)
--- NOTE | 2024-02-24 15:49 | DVHPN2 ---
Subjective 73-year-old female presents for evaluation of a cough. Patient reports a four day history of having a productive cough with yellow phlegm with shortness for breath. Denies chest pain or palpitations. Denies fever or chills. No other acute complaints reported. Update -02/20-she continues to shortness of breath and cough. But she is feeling improved. She is urinating ample amount with prior given Lasix push. - 02/21 - feels improved but still has some SOB. cough also ongoing but improved. - 02/22 - she s at her new baseline. feels improved. but still has rales throughout all lung angel. this is appearing less like volume overload and may be process more limited to lungs. will need further imaging. - 02/23 - cough persists. patient improving in sob. rales improving. on steroids. oxygen able to wean off today. pulm to eval. need 1 more day steroids iv. likely dc tomrrow. Reviewed: H&P Changes from previous H/P or p: No Changes General: Per HPI Objective Vitals Vital Signs Date Time Temp Pulse Resp B/P (MAP) Pulse Ox O2 Delivery O2 Flow Rate FiO2 02/24/24 13:30 77 18 100 02/24/24 13:24 Room Air* 0 21 02/24/24 13:02 97.9 132/73 (92) 97.9 Intake/Output Intake and Output 02/24/24 07:00 Intake Total 1870 ml Balance 1870 ml Intake Oral 1220 ml IV Total 650 ml # Voids 10 # Bowel Movements 3 Exam GEN: Healthy appearing, well-developed, NAD. HEENT: NC/AT; MMM. CV: RRR, no m/r/g. LUNGS: Rales up to middle lobs bilaterally. ABD: Soft, NT/ND, NBS, no masses or organomegaly. EXT: skin Warm, well perfused. no rashes. No clubbing, cyanosis, or edema. No pitting edema in lower extremities. NEURO: Ambulating with no limitations. No focal deficits. Medications Current Medications Medications Dose Ordered Sig/Abelardo Route Start Time Stop Time Status Last Admin Dose Admin Albuterol 2.5 mg Q6HPRN PRN NEB 02/20/24 19:45 Cancel Ipratropium [place] 0.5 mg Q6HPRN PRN NEB 02/20/24 19:45 Cancel Duloxetine HCl 30 mg DAILY PO 02/21/24 10:00 02/24/24 08:39 30 MG Levothyroxine Sodium 75 mcg QAM@0600 PO 02/21/24 06:00 02/24/24 06:16 75 MCG Atorvastatin Calcium 40 mg HS PO 02/20/24 22:00 02/23/24 21:23 40 MG Ondansetron HCl 4 mg Q4HP PRN IV 02/20/24 19:45 Enoxaparin Sodium 40 mg DAILY SC 02/21/24 10:00 02/24/24 08:39 40 MG Acetaminophen 650 mg Q6HP PRN PO 02/20/24 19:45 Ceftriaxone Sodium 50 ml @ 100 mls/hr DAILY@09 IV 02/22/24 09:00 UNV Azithromycin 250 ml @ 125 mls/hr DAILY IV 02/22/24 10:00 02/24/24 10:49 125 MLS/HR Midodrine 5 mg TID@0600,1200,1800 PO 02/22/24 12:00 02/24/24 10:49 5 MG Prednisone 40 mg DAILY PO 02/24/24 10:00 02/24/24 08:40 40 MG Ipratropium [place] 0.5 mg Q8HR NEB 02/23/24 22:00 02/24/24 13:24 0.5 MG Pantoprazole Sodium 40 mg DAILY IV 02/24/24 10:00 02/24/24 08:39 40 MG Diagnostic Test (Pha) 1 strip ACHS 02/23/24 17:00 02/24/24 11:05 1 STRIP Insulin Human Regular ACHS SC 02/23/24 17:00 Dextrose 50 ml UD PRN IV 02/23/24 16:30 Ampicillin Sodium/ Sulbactam Sodium 3 gm/Sodium Chloride 100 ml @ 100 mls/hr Q6H IV 02/23/24 20:00 02/24/24 13:48 100 MLS/HR Methylprednisolone Sodium Succinate 40 mg BID IV 02/24/24 10:00 02/24/24 08:40 40 MG Laboratory Results Laboratory Tests 02/24/24 06:06 Chemistry Test 02/24/24 06:06 Albumin 3.9 g/dL (3.2-4.8) Calcium Level 9.4 mg/dL (8.7-10.4) Total Protein 7.0 g/dL (5.7-8.2) LFT Test 02/24/24 06:06 Alanine Aminotransferase (ALT) 33 U/L (7-40) Alkaline Phosphatase 74 U/L (46-116) Aspartate Amino Transferase (AST) 34 U/L (13-40) Total Bilirubin 0.6 mg/dL (0.2-1.0) Urinalysis Test 02/21/24 08:37 Urine Color Light-yellow (Yellow) Urine Clarity Clear (Clear) Urine pH 6.0 (5.0-9.0) Urine Specific [place] 1.005 (1.001-1.035) Urine Protein Negative (Negative) Urine Ketones Negative (Negative) Urine Blood Negative /uL (Negative) Urine Nitrite Negative (Negative) Urine Bilirubin Negative (Negative) Urine Urobilinogen Normal mg/dL (Negative) Urine Leukocyte Esterase Negative /uL (Negative) Urine RBC None seen /hpf (0 - 4) Urine WBC 1 /hpf (0 - 5) Urine Squamous Epithelial Cells None seen /hpf (<5) Urine Bacteria None seen /hpf (None Seen) Urine Glucose Normal mg/dL (Normal) Microbiology Microbiology Date/Time Source Procedure Growth Status 02/22/24 04:00 Nose MRSA Screen - Final Complete Labs and/or images reviewed: Labs reviewed by me, Image(s) reviewed by me Assessment/Plan Assessment/Plan Update - 02/23 - cough persists. patient improving in sob. rales improving. on steroids. oxygen able to wean off today. pulm to eval. need 1 more day steroids iv. likely dc tomrrow. Acute hypoxic respiratory failure History of Covid19 infection pulmonary fibrosis Pneumonia, Gram-positive Gram-negative likely Acute on chronic, diastolic, CHF exacerbation, possible History of angina; history negative [facility] Hypertension - presentation patient has low-grade fevers, tachycardia tachypnea and has soft pressures - CXR consistent with concern for pneumonia, there is bilateral interstitial opacities - patient is volume overload but her clinical picture also does match pneumonia. We will treat it as volume overload and pneumonia - echo recent admission shows EF 60%, mild TR/MR. - CT chest 02/22: Reticular interstitial changes with septal thickening and hazy ground-glass opacities along the periphery of the lungs, most notably in the left upper lobe. There is mild associated bronchiectasis. There is no obvious honeycombing. Findings May relate to early changes of pulmonary fibrosis or pneumonitis. - IV antibiotics - will likely need work-up with pulm and iv steroids. - stop IV diuresis - cardiac diet and diabetic diet - wean off oxygen. assess for home oxygen. Diabetes [id number] with SSI Hypertension- hold home p.o. meds (Entresto) Hypothyroid-continue Synthroid home dose. hx CVA Diet cardiac/diabetic DVT prophylaxis-Lovenox GI prophylaxis home Protonix tablets p.o. daily Med surge Plan discussed with: Patient My Orders Orders - SHEEBA GAMBOA MD Procedure Category Date Status Time *Consult CONS 02/23/24 Transmitted / 16:22 Pantoprazole PHA 02/24/24 In Process (Protonix) 10:00 Glucose Blood PHA 02/23/24 In Process (Accu-Chek Comfort 17:00 Insulin R (Human) PHA 02/23/24 In Process (Insulin R) 17:00 Dextrose 50% Syringe PHA 02/23/24 In Process 16:30 Ampicillin & PHA 02/23/24 In Process Sulbactam Sodium 20:00 Methylprednisolone PHA 02/24/24 In Process Sod Succ (Solu Medrol 10:00 Ss Eval For Home CONS 02/24/24 Transmitted Oxygen Date of Service: Feb 24, 2024 Billing Provider: SHEEBA GAMBOA MD Common Visit Codes: [id number] INP/OBS CARE(HIGH) SHEEBA GAMBOA MD Feb 24, 2024 15:49
--- NOTE | 2024-02-24 23:07 | DVHINCON2 ---
Date of service: Feb 24, 2024 Referring Physician Cameron Schmitt MD Reason for Consultation Dyspnea, cough, pulmonary fibrosis, community-acquired pneumonia, acute on chronic hypoxic respiratory failure. History of Present Illness History of Present Illness A 73-year-old woman with past medical history of diabetes mellitus, hypertension, CHF, CVA, ND, and thyroid disease presented to ED on 02/20/24 for evaluation of a cough. Patient reported a 4-day history of productive cough with yellow phlegm and shortness of breath. Denies chest pain or palpitations. Denies fever or chills. No other acute complaints reported. CT imaging showed findings c/w pulmonary fibrosis. Patient was admitted for further care and pulmonary consultation is requested for evaluation and management due to these findings. Review of Systems: 14-point review of systems negative unless otherwise noted above. Past Medical History: Diabetes mellitus, hypertension, CHF, CVA, ND, thyroid disease. Past Surgical History: Cholecystectomy and appendectomy Medications: Reviewed. Allergies: Ceftriaxone Codeine Levofloxacin. Family History: Heart disease, DM, gestational diabetes, hypertension, hypercholesterolemia, ovarian cancer, stroke. Social History: Nonsmoker. No alcohol or illicit drug use. Family History: Family history: Cardiovascular disease Family history: Diabetes in G8 MOTHER, Onset:60 years & older Family history: Diabetes mellitus G8 BROTHER, Onset:40's - 50 Family history: Hypercholesterolemia (situation) G8 SISTER, Onset:30's - 40 Family history: Hypertension G8 BROTHER, Onset:40's - 50 Malignant neoplasm of ovary G8 SISTER, Onset:30's - 40 Stroke G8 FATHER, Onset:60 years & older Allergies: Coded Allergies: Ceftriaxone (Verified Allergy, Unknown, 12/31/19) Codeine (Verified Allergy, Unknown, 06/19/15) Levofloxacin (Verified Allergy, Unknown, 01/19/22) Home Meds Active Scripts Ondansetron Odt 4MG Tab (ZOFRAN PO) 4 Mg Tb, 4 MG PO Q6HP PRN for 7 Days, #28 TAB ODT TAB-DISSOLVE IN MOUTH, THEN SWALLOW Prov:VICKIE DAVALOS MD 02/09/24 Meclizine Hcl (Meclizine Hcl) 12.5 Mg Tab, 12.5 MG PO BIDP PRN for 7 Days, #20 MG 0 Refills Prov:VICKIE DAVALOS MD 02/09/24 Levofloxacin Hemihydrate (LEVOFLOXACIN) 500 Mg Tab, 500 MG PO DAILY for 4 Days, #4 TAB Prov:JIM GALAN MD 12/05/20 Reported Medications Citalopram Hydrobromide (Citalopram) 40 Mg Tab, 40 MG PO DAILY 12/03/20 Baclofen (Baclofen) 10 Mg Tab, 10 MG PO TID 12/03/20 Omeprazole (Omeprazole Dr) 40 Mg Cap, 1 CAP PO DAILY 12/03/20 Ergocalciferol (Vitamin D) 50,000 Unit Cap, 1 CAP PO QWEEKLY 12/03/20 Hydrocodone-Acetaminophen (Hydrocodone Bitartrate/AC 10-325 mg) 1 Tab Tab, 1 TAB PO TIDP 12/03/20 Gabapentin (Gabapentin) 300 Mg Cap, 1 CAP PO TID 12/03/20 Atorvastatin Calcium (ATORVASTATIN CALCIUM) 20 Mg Tab, 1 TAB PO DAILY 12/03/20 Furosemide (Furosemide) 40 Mg Tab, 1 TAB PO DAILY 12/03/20 Potassium Chloride (Potassium Chloride ER) 20 Meq Tab, 1 TAB PO DAILY 12/03/20 Hydroxychloroquine Sulfate (Hydroxychloroquine Sulfat) 200 Mg Tab, 1 TAB PO BID 12/03/20 Celecoxib (Celecoxib) 200 Mg Cap, 1 CAP PO DAILY 12/03/20 Levothyroxine Sodium (Levothyroxine Sodium) 100 Mcg Tab, 100 MCG PO DAILY, TAB 12/03/20 Metformin Hydrochloride (Metformin Hcl) 500 Mg Tab, 1 TAB PO BID 12/14/17 Albuterol Sulfate (Proair Respiclick) 108 Mcg/Act Aer, 108 MCG IN TID, AER 12/14/17 Losartan Potassium (Losartan Potassium) 50 Mg Tab, 1 TAB PO DAILY 12/14/17 Aspirin (ASPIRIN 81) 81 Mg Tab, 81 MG OR DAILY, TAB 06/28/15 Current Medications Current Medications Medications (Trade) Dose Ordered Sig/Abelardo Route PRN Reason Start Time Stop Time Status Last Admin Prednisone 40 mg DAILY PO 02/24/24 10:00 02/24/24 08:40 Pantoprazole Sodium (Protonix) 40 mg DAILY IV 02/24/24 10:00 02/24/24 08:39 Methylprednisolone Sodium Succinate (Solu Medrol) 40 mg BID IV 02/24/24 10:00 02/24/24 22:26 Vital Signs Vital Signs Date Time Temp Pulse Resp B/P (MAP) Pulse Ox O2 Delivery O2 Flow Rate FiO2 02/24/24 21:00 97.5 77 18 115/51 (72) 93 97.5 02/24/24 18:45 Nasal Cannula* 2 28 Physical Exam Gen.: Patient lying in bed in no apparent distress. Breathing on room air. Head: Normocephalic, atraumatic. Eyes: EOMI/PERRLA. Ears: Normal hearing. Normal anatomy. Neck/trachea: Trachea midline, supple. Nose: Normal external anatomy. Mouth: Moist mucous membranes. Chest: Decreased air entry bilaterally. No wheezing or rhonchi. Cardiovascular: Positive S1, positive S2. Regular rate and rhythm. Abdomen: Positive bowel sounds in all 4 quadrants. Soft, non-tender, non- distended. : Deferred. Rectal: Deferred. Skin: Warm, dry. Intact. Extremities: 2+ radial pulses bilaterally. No lower extremity edema. Neuro: Awake, alert, oriented x3. No gross motor or sensory deficits. Cranial nerves II through XII intact. Gait not assessed. Labs/Diagnostic Data Labs Test 02/24/24 21:05 02/24/24 06:06 02/21/24 09:50 02/21/24 08:37 Range/Units POC Glucose 253 H 70-106 mg/dl White Blood Count 6.0 # 4.4-10.8 10^3/uL Red Blood Count 4.58 4.0-5.20 10^6/uL Hemoglobin 14.0 12.2-16.2 g/dL Hematocrit 41.2 36.0-46.0 % Mean Corpuscular Volume 90.1 80.0-100.0 fL Mean Corpuscular Hemoglobin 30.5 28.0-32.0 pg Mean Corpuscular Hemoglobin Concent 33.9 32.0-36.0 g/dL Red Cell Distribution Width 14.2 11.8-14.3 % Platelet Count 184 140-450 10^3/uL Mean Platelet Volume 8.7 6.9-10.8 fL Neutrophils (%) (Auto) 73.2 37.0-80.0 % Lymphocytes (%) (Auto) 24.0 10.0-50.0 % Monocytes (%) (Auto) 1.7 0.0-12.0 % Eosinophils (%) (Auto) 0.4 0.0-7.0 % Basophils (%) (Auto) 0.7 0.0-2.0 % Neutrophils # (Auto) 4.4 1.6-8.6 10 ^3/uL Lymphocytes # (Auto) 1.4 0.4-5.4 10 ^3/uL Monocytes # (Auto) 0.1 0-1.3 10 ^3/uL Eosinophils # (Auto) 0 0-0.8 10 ^3/uL Basophils # (Auto) 0 0-0.2 10 ^3/uL Nucleated Red Blood Cells 0.1 % Sodium Level 140 136-145 mmol/L Potassium Level 4.3 3.5-5.1 mmol/L Chloride Level 102 98-107 mmol/L Carbon Dioxide Level 28 20-31 mmol/L Anion Gap 10 5-15 Blood Urea Nitrogen 22 9-23 mg/dL Creatinine 0.97 0.550-1.02 mg/dL Glomerular Filtration Rate Calc 61 >90 mL/min BUN/Creatinine Ratio 22.7 H 10.0-20.0 Serum Glucose 213 H 74-106 mg/dL Calcium Level 9.4 8.7-10.4 mg/dL Total Bilirubin 0.6 0.2-1.0 mg/dL Aspartate Amino Transferase (AST) 34 13-40 U/L Alanine Aminotransferase (ALT) 33 7-40 U/L Alkaline Phosphatase 74 46-116 U/L Total Protein 7.0 5.7-8.2 g/dL Albumin 3.9 3.2-4.8 g/dL Influenza Type A Antigen Negative Negative Influenza Type B Antigen Negative Negative SARS-CoV-2 Antigen (Rapid) Negative NEGATIVE Urine Color Light-yellow Yellow Urine Clarity Clear Clear Urine pH 6.0 5.0-9.0 Urine Specific [place] 1.005 1.001-1.035 Urine Protein Negative Negative Urine Ketones Negative Negative Urine Blood Negative Negative /uL Urine Nitrite Negative Negative Urine Bilirubin Negative Negative Urine Urobilinogen Normal Negative mg/dL Urine Leukocyte Esterase Negative Negative /uL Urine RBC None seen 0 - 4 /hpf Urine WBC 1 0 - 5 /hpf Urine Squamous Epithelial Cells None seen <5 /hpf Urine Bacteria None seen None Seen /hpf Urine Glucose Normal Normal mg/dL Test 02/20/24 18:04 02/20/24 15:46 02/20/24 14:54 Range/Units Troponin I High Sensitivity < 3 L </=34 ng/L Lactic Acid Level 0.9 0.4-2.0 mmol/L B-Type Natriuretic Peptide 39.06 0-100 pg/mL Microbiology Date/Time Source Procedure Growth Status 02/22/24 04:00 Nose MRSA Screen - Final Complete Assessment Impression: Pulmonary fibrosis vs chronic interstitial lung disease Community-acquired pneumonia Acute on chronic hypoxic respiratory failure Cough Dyspnea Hypertension Prior hx of COVID 19 infection Plan: Supplemental oxygen PRN Titrate to keep O2 sats above 92%. Chest CT demonstrated reticular interstitial changes with septal thickening and hazy ground-glass opacities along the periphery of the lungs, most notably in left upper lobe. Mild associated bronchiectasis. No obvious honeycombing. Findings may relate to early changes of pulmonary fibrosis or pneumonitis. Continue bronchodilators. Continue antibiotics Incentive spirometry Monitor renal function. Monitor electrolytes. Supplement as necessary. Monitor ins and outs. Will require outpatient evaluation Will need to send out: RF, BEVERLEY, Anti-CCP. Obtain High resolution CT chest in 1 mm slices to evaluate. DVT prophylaxis. Prognosis: Poor given patient's multiple co-morbidities. Rest of plan per hospitalist and other consultants. Thank you Dr. Cameron Schmitt MD, for allowing me to participate in this patient's care. Further recommendations will depend on the patient's clinical course. Please do not hesitate to contact me if you have any questions or concerns. This medical document was created using an electronic medical record system with [employer] dictation system. Although these documentations are being carefully reviewed, there may still be some phonetic and typographical changes. The errors are purely typographical, due to imperfection on the software program, and do not reflect any compromise in the patient's medical care. Plan discussed with: Patient, Son, Other (MAINOR Shaw/MD Schmitt) GABRIELE ANAND MD Feb 24, 2024 23:07
[2024-02-25] VITALS (15 sets, daily range): BP systolic 101–126; BP diastolic 40–60; PULSE 57–76; RESP 17–20; TEMP 97.4–98; O2SAT 89–100
[2024-02-25 07:22] LABS: Alanine Aminotransferase 38 U/L (7-40); Albumin 3.8 g/dL (3.2-4.8); Alkaline Phosphatase 67 U/L (46-116); Anion Gap 8 (5-15); Aspartate Aminotransferase 34 U/L (13-40); BUN/Creatinine Ratio 25.6 (10.0-20.0); Blood Urea Nitrogen 21 mg/dL (9-23); Calcium 9.1 mg/dL (8.7-10.4); Carbon Dioxide 29 mmol/L (20-31); Chloride 102 mmol/L (98-107); Potassium 3.8 mmol/L (3.5-5.1); Sodium 139 mmol/L (136-145)
[2024-02-25 07:23] LABS: Bilirubin, Total 0.6 mg/dL (0.2-1.0); Total Protein 6.7 g/dL (5.7-8.2)
[2024-02-25 07:53] LABS: Glucose 208 mg/dL (74-106)
[2024-02-25] MEDS: FUROSEMIDE 40 MG/4 ML VIAL IV ONE (11:25)
[2024-02-25 17:57] LABS: Base Excess 2.3 mmol/L (-2.0-3.0)
--- NOTE | 2024-02-25 18:37 | DVHPN2 ---
Progress Note - Dictate Date Seen: Feb 25, 2024 Medical Necessity Reason Pt with a Central, PICC or Fol: No Subjective Patient seen and examined at bedside. Breathing comfortably on room air. Overnight events reviewed. vital signs Vital Sign Date Time Temp Pulse Resp B/P (MAP) Pulse Ox O2 Delivery O2 Flow Rate FiO2 02/25/24 15:34 68 18 100 02/25/24 15:28 Room Air 0.0 02/25/24 15:28 21 02/25/24 11:25 112/54 02/25/24 09:00 98.0 98.0 Total Intake and Output 02/24/24 02/24/24 02/25/24 15:00 23:00 07:00 Intake Total 450 ml 900 ml 700 ml Balance 450 ml 900 ml 700 ml medications Current Medications Medications Dose Ordered Sig/Abelardo Route Start Time Stop Time Status Last Admin Dose Admin Albuterol 2.5 mg Q6HPRN PRN NEB 02/20/24 19:45 Cancel Ipratropium [place] 0.5 mg Q6HPRN PRN NEB 02/20/24 19:45 Cancel Duloxetine HCl 30 mg DAILY PO 02/21/24 10:00 02/25/24 09:25 30 MG Levothyroxine Sodium 75 mcg QAM@0600 PO 02/21/24 06:00 02/25/24 05:53 75 MCG Atorvastatin Calcium 40 mg HS PO 02/20/24 22:00 02/24/24 22:26 40 MG Ondansetron HCl 4 mg Q4HP PRN IV 02/20/24 19:45 Enoxaparin Sodium 40 mg DAILY SC 02/21/24 10:00 02/25/24 09:24 40 MG Acetaminophen 650 mg Q6HP PRN PO 02/20/24 19:45 Ceftriaxone Sodium 50 ml @ 100 mls/hr DAILY@09 IV 02/22/24 09:00 UNV Azithromycin 250 ml @ 125 mls/hr DAILY IV 02/22/24 10:00 02/25/24 11:13 125 MLS/HR Ipratropium [place] 0.5 mg Q8HR NEB 02/23/24 22:00 02/25/24 15:28 0.5 MG Pantoprazole Sodium 40 mg DAILY IV 02/24/24 10:00 02/25/24 09:20 40 MG Diagnostic Test (Pha) 1 strip ACHS 02/23/24 17:00 02/25/24 11:35 1 STRIP Insulin Human Regular ACHS SC 02/23/24 17:00 02/25/24 11:33 6 UNITS Dextrose 50 ml UD PRN IV 02/23/24 16:30 Ampicillin Sodium/ Sulbactam Sodium 3 gm/Sodium Chloride 100 ml @ 100 mls/hr Q6H IV 02/23/24 20:00 02/25/24 14:52 100 MLS/HR Methylprednisolone Sodium Succinate 40 mg BID IV 02/24/24 10:00 02/25/24 09:21 40 MG objective Gen.: Patient lying in bed in no apparent distress. Breathing on room air. Head: Normocephalic, atraumatic. Eyes: EOMI/PERRLA. Ears: Normal hearing. Normal anatomy. Neck/trachea: Trachea midline, supple. Nose: Normal external anatomy. Mouth: Moist mucous membranes. Chest: Decreased air entry bilaterally. No wheezing or rhonchi. Cardiovascular: Positive S1, positive S2. Regular rate and rhythm. Abdomen: Positive bowel sounds in all 4 quadrants. Soft, non-tender, non- distended. : Deferred. Rectal: Deferred. Skin: Warm, dry. Intact. Extremities: 2+ radial pulses bilaterally. No lower extremity edema. Neuro: Awake, alert, oriented x3. No gross motor or sensory deficits. Cranial nerves II through XII intact. Gait not assessed. laboratory and microbiology Laboratory Tests 02/25/24 06:19 02/24/24 06:06 Test 02/25/24 06:19 Range/Units Serum Glucose 208 H 74-106 mg/dL Assessment/Plan Impression: Pulmonary fibrosis vs chronic interstitial lung disease Community-acquired pneumonia Acute on chronic hypoxic respiratory failure Cough Dyspnea Hypertension Prior hx of COVID 19 infection Events: Breathing on room air. No respiratory distress. Supplemental oxygen PRN. Continue IV steroids Continue antibiotics Continue bronchodilators On midodrine. GI/DVT prophylaxis Plan: Supplemental oxygen PRN Titrate to keep O2 sats above 92%. Chest CT demonstrated reticular interstitial changes with septal thickening and hazy ground-glass opacities along the periphery of the lungs, most notably in left upper lobe. Mild associated bronchiectasis. No obvious honeycombing. Findings may relate to early changes of pulmonary fibrosis or pneumonitis. Continue bronchodilators. Continue antibiotics Incentive spirometry Monitor renal function. Monitor electrolytes. Supplement as necessary. Monitor ins and outs. Will require outpatient evaluation Will need to send out: RF, BEVERLEY, Anti-CCP. Obtain High resolution CT chest in 1 mm slices to evaluate. DVT prophylaxis. Prognosis: Poor given patient's multiple co-morbidities. Rest of plan per hospitalist and other consultants. Thank you Dr. Cameron Schmitt MD, for allowing me to participate in this patient's care. Further recommendations will depend on the patient's clinical course. Please do not hesitate to contact me if you have any questions or concerns. This medical document was created using an electronic medical record system with [employer] dictation system. Although these documentations are being carefully reviewed, there may still be some phonetic and typographical changes. The errors are purely typographical, due to imperfection on the software program, and do not reflect any compromise in the patient's medical care. Dietary Evaluation Review Comments: Continue current plan of care Expected Outcomes/Goals: F/U in 3-5 days Plan discussed with: Patient, Other (MAINOR Shaw) GABRIELE ANAND MD Feb 25, 2024 18:37
--- NOTE | 2024-02-25 18:43 | DVHPN2 ---
Subjective 73-year-old female presents for evaluation of a cough. Patient reports a four day history of having a productive cough with yellow phlegm with shortness for breath. Denies chest pain or palpitations. Denies fever or chills. No other acute complaints reported. Update -02/20-she continues to shortness of breath and cough. But she is feeling improved. She is urinating ample amount with prior given Lasix push. - 02/21 - feels improved but still has some SOB. cough also ongoing but improved. - 02/22 - she s at her new baseline. feels improved. but still has rales throughout all lung angel. this is appearing less like volume overload and may be process more limited to lungs. will need further imaging. - 02/23 - cough persists. patient improving in sob. rales improving. on steroids. oxygen able to wean off today. pulm to eval. need 1 more day steroids iv. likely dc tomrrow. Reviewed: H&P Changes from previous H/P or p: No Changes General: Per HPI Objective Vitals Vital Signs Date Time Temp Pulse Resp B/P (MAP) Pulse Ox O2 Delivery O2 Flow Rate FiO2 02/25/24 15:34 68 18 100 02/25/24 15:28 Room Air 0.0 02/25/24 15:28 21 02/25/24 11:25 112/54 02/25/24 09:00 98.0 98.0 Intake/Output Intake and Output 02/25/24 07:00 Intake Total 2050 ml Balance 2050 ml Intake Oral 1600 ml IV Total 450 ml # Voids 6 # Bowel Movements 3 Exam GEN: Healthy appearing, well-developed, NAD. HEENT: NC/AT; MMM. CV: RRR, no m/r/g. LUNGS: Rales up to lower lobes bilaterally. ABD: Soft, NT/ND, NBS, no masses or organomegaly. EXT: skin Warm, well perfused. no rashes. No clubbing, cyanosis, or edema. No pitting edema in lower extremities. NEURO: Ambulating with no limitations. No focal deficits. Medications Current Medications Medications Dose Ordered Sig/Abelardo Route Start Time Stop Time Status Last Admin Dose Admin Albuterol 2.5 mg Q6HPRN PRN NEB 02/20/24 19:45 Cancel Ipratropium [place] 0.5 mg Q6HPRN PRN NEB 02/20/24 19:45 Cancel Duloxetine HCl 30 mg DAILY PO 02/21/24 10:00 02/25/24 09:25 30 MG Levothyroxine Sodium 75 mcg QAM@0600 PO 02/21/24 06:00 02/25/24 05:53 75 MCG Atorvastatin Calcium 40 mg HS PO 02/20/24 22:00 02/24/24 22:26 40 MG Ondansetron HCl 4 mg Q4HP PRN IV 02/20/24 19:45 Enoxaparin Sodium 40 mg DAILY SC 02/21/24 10:00 02/25/24 09:24 40 MG Acetaminophen 650 mg Q6HP PRN PO 02/20/24 19:45 Ceftriaxone Sodium 50 ml @ 100 mls/hr DAILY@09 IV 02/22/24 09:00 UNV Azithromycin 250 ml @ 125 mls/hr DAILY IV 02/22/24 10:00 02/25/24 11:13 125 MLS/HR Ipratropium [place] 0.5 mg Q8HR NEB 02/23/24 22:00 02/25/24 15:28 0.5 MG Pantoprazole Sodium 40 mg DAILY IV 02/24/24 10:00 02/25/24 09:20 40 MG Diagnostic Test (Pha) 1 strip ACHS 02/23/24 17:00 02/25/24 11:35 1 STRIP Insulin Human Regular ACHS SC 02/23/24 17:00 02/25/24 11:33 6 UNITS Dextrose 50 ml UD PRN IV 02/23/24 16:30 Ampicillin Sodium/ Sulbactam Sodium 3 gm/Sodium Chloride 100 ml @ 100 mls/hr Q6H IV 02/23/24 20:00 02/25/24 14:52 100 MLS/HR Methylprednisolone Sodium Succinate 40 mg BID IV 02/24/24 10:00 02/25/24 09:21 40 MG Laboratory Results Laboratory Tests 02/24/24 06:06 02/25/24 06:19 Chemistry Test 02/25/24 06:19 Albumin 3.8 g/dL (3.2-4.8) Calcium Level 9.1 mg/dL (8.7-10.4) Total Protein 6.7 g/dL (5.7-8.2) LFT Test 02/25/24 06:19 Alanine Aminotransferase (ALT) 38 U/L (7-40) Alkaline Phosphatase 67 U/L (46-116) Aspartate Amino Transferase (AST) 34 U/L (13-40) Total Bilirubin 0.6 mg/dL (0.2-1.0) Urinalysis Test 02/21/24 08:37 Urine Color Light-yellow (Yellow) Urine Clarity Clear (Clear) Urine pH 6.0 (5.0-9.0) Urine Specific [place] 1.005 (1.001-1.035) Urine Protein Negative (Negative) Urine Ketones Negative (Negative) Urine Blood Negative /uL (Negative) Urine Nitrite Negative (Negative) Urine Bilirubin Negative (Negative) Urine Urobilinogen Normal mg/dL (Negative) Urine Leukocyte Esterase Negative /uL (Negative) Urine RBC None seen /hpf (0 - 4) Urine WBC 1 /hpf (0 - 5) Urine Squamous Epithelial Cells None seen /hpf (<5) Urine Bacteria None seen /hpf (None Seen) Urine Glucose Normal mg/dL (Normal) Blood Gas Results Test 02/25/24 17:44 Arterial Blood pH 7.490 (7.350-7.450) FiO2 % 21.0 Microbiology Microbiology Date/Time Source Procedure Growth Status 02/22/24 04:00 Nose MRSA Screen - Final Complete Labs and/or images reviewed: Labs reviewed by me, Image(s) reviewed by me Assessment/Plan Assessment/Plan Update - 02/23 - cough persists. patient improving in sob. rales improving. on steroids. oxygen able to wean off today. pulm to eval. need 1 more day steroids iv. likely dc tomrrow. - 02/24-cough is improving, rales improving. Patient tried to be weaned off oxygen yesterday. But overnight continues to have another oxygen requirement. Some concern for [place]. This morning trying to weaned off oxygen again. Patient continues to require oxygen upon repeated attempts of weaning. There is concern that patient will have further hypoxia on ambulation. Patient needs to have oxygen eval on ambulation. She is also feeling weak and uncomfortable walking on her own, she will need PT eval tomorrow. Plan for PT eval, then oxygen eval. Patient will continue for another 24 hours for steroids and antibiotics. Outpatient patient will have completed her antibiotics and no need for further antibiotics. We will continue 5 more days of prednisone. And she will need follow up with [facility]. Acute hypoxic respiratory failure History of Covid19 infection pulmonary fibrosis Pneumonia, Gram-positive Gram-negative likely Acute on chronic, diastolic, CHF exacerbation, possible History of angina; history negative [facility] Hypertension - presentation patient has low-grade fevers, tachycardia tachypnea and has soft pressures - CXR consistent with concern for pneumonia, there is bilateral interstitial opacities - patient is volume overload but her clinical picture also does match pneumonia. We will treat it as volume overload and pneumonia - echo recent admission shows EF 60%, mild TR/MR. - CT chest 02/22: Reticular interstitial changes with septal thickening and hazy ground-glass opacities along the periphery of the lungs, most notably in the left upper lobe. There is mild associated bronchiectasis. There is no obvious honeycombing. Findings May relate to early changes of pulmonary fibrosis or pneumonitis. - IV antibiotics - will likely need work-up with pulm and short course outpt steroids. - stop IV diuresis (given 1x more on 02/24) - cardiac diet and diabetic diet - unable to wean off oxygen. assess for home oxygen. -PT eval, then oxygen eval. Diabetes [id number] with SSI Hypertension- hold home p.o. meds (Entresto) Hypothyroid-continue Synthroid home dose. hx CVA Diet cardiac/diabetic DVT prophylaxis-Lovenox GI prophylaxis home Protonix tablets p.o. daily Med surge Plan discussed with: Patient My Orders Orders - SHEEBA GAMBOA MD Procedure Category Date Status Time Pt Request For Service PT 02/25/24 Logged 16:35 Abg W/ Co-Ox RT 02/25/24 Logged 16:57 Date of Service: Feb 25, 2024 Billing Provider: SHEEBA GAMBOA MD Common Visit Codes: [id number] INP/OBS CARE(HIGH) SHEEBA GAMBOA MD Feb 25, 2024 18:43
[2024-02-25] MEDS: ACETAMINOPHEN 325 MG TAB PO PRN (20:52)
[2024-02-26] VITALS (15 sets, daily range): BP systolic 135–145; BP diastolic 49–80; PULSE 45–81; RESP 16–20; TEMP 97.1–98; O2SAT 90–100
--- NOTE | 2024-02-26 12:05 | DVHPN2 ---
Subjective Patient seen and examined at bedside. Still very tired sleepy Reviewed: Care Plan, H&P, Labs, Medications, Previous Orders, Radiology Changes from previous H/P or p: No Changes General: Per HPI Objective Vitals Vital Signs Date Time Temp Pulse Resp B/P (MAP) Pulse Ox O2 Delivery O2 Flow Rate FiO2 02/26/24 09:00 97.6 65 18 139/56 (83) 95 97.6 02/26/24 08:00 Room Air* 0 21 Intake/Output Intake and Output 02/26/24 07:00 Intake Total 2300 ml Output Total 1300 ml Balance 1000 ml Intake Oral 1650 ml IV Total 650 ml Output Urine Total 1300 ml # Bowel Movements 2 General Appearance: Alert, No acute distress HEENT: Atraumatic, PERRLA, EOMI, Mucous membr. moist/pink Neck: Supple Lungs: Clear to auscultation, Normal air movement Cardiovascular: Regular rate, Normal S1, Normal S2, No murmurs, Gallops, Rubs Abdomen: Normal bowel sounds, Soft, No tenderness Neuro: Cranial nerves 3-12 NL Psych/Mental Status: Mental status NL Medications Current Medications Medications Dose Ordered Sig/Abelardo Route Start Time Stop Time Status Last Admin Dose Admin Albuterol 2.5 mg Q6HPRN PRN NEB 02/20/24 19:45 Cancel Ipratropium [place] 0.5 mg Q6HPRN PRN NEB 02/20/24 19:45 Cancel Duloxetine HCl 30 mg DAILY PO 02/21/24 10:00 02/26/24 08:52 30 MG Levothyroxine Sodium 75 mcg QAM@0600 PO 02/21/24 06:00 02/26/24 06:37 75 MCG Atorvastatin Calcium 40 mg HS PO 02/20/24 22:00 02/25/24 20:52 40 MG Ondansetron HCl 4 mg Q4HP PRN IV 02/20/24 19:45 Enoxaparin Sodium 40 mg DAILY SC 02/21/24 10:00 02/26/24 08:52 40 MG Acetaminophen 650 mg Q6HP PRN PO 02/20/24 19:45 02/25/24 20:52 650 MG Ceftriaxone Sodium 50 ml @ 100 mls/hr DAILY@09 IV 02/22/24 09:00 UNV Azithromycin 250 ml @ 125 mls/hr DAILY IV 02/22/24 10:00 02/25/24 11:13 125 MLS/HR Ipratropium [place] 0.5 mg Q8HR NEB 02/23/24 22:00 02/26/24 06:24 0.5 MG Pantoprazole Sodium 40 mg DAILY IV 02/24/24 10:00 02/26/24 08:52 40 MG Diagnostic Test (Pha) 1 strip ACHS 02/23/24 17:00 02/26/24 06:40 1 STRIP Insulin Human Regular ACHS SC 02/23/24 17:00 02/26/24 06:41 3 UNITS Dextrose 50 ml UD PRN IV 02/23/24 16:30 Ampicillin Sodium/ Sulbactam Sodium 3 gm/Sodium Chloride 100 ml @ 100 mls/hr Q6H IV 02/23/24 20:00 02/26/24 08:52 100 MLS/HR Methylprednisolone Sodium Succinate 40 mg BID IV 02/24/24 10:00 02/25/24 20:53 40 MG Laboratory Results Laboratory Tests 02/24/24 06:06 02/25/24 06:19 Urinalysis Test 02/21/24 08:37 Urine Color Light-yellow (Yellow) Urine Clarity Clear (Clear) Urine pH 6.0 (5.0-9.0) Urine Specific [place] 1.005 (1.001-1.035) Urine Protein Negative (Negative) Urine Ketones Negative (Negative) Urine Blood Negative /uL (Negative) Urine Nitrite Negative (Negative) Urine Bilirubin Negative (Negative) Urine Urobilinogen Normal mg/dL (Negative) Urine Leukocyte Esterase Negative /uL (Negative) Urine RBC None seen /hpf (0 - 4) Urine WBC 1 /hpf (0 - 5) Urine Squamous Epithelial Cells None seen /hpf (<5) Urine Bacteria None seen /hpf (None Seen) Urine Glucose Normal mg/dL (Normal) Blood Gas Results Test 02/25/24 17:44 Arterial Blood pH 7.490 (7.350-7.450) FiO2 % 21.0 Microbiology Microbiology Date/Time Source Procedure Growth Status 02/22/24 04:00 Nose MRSA Screen - Final Complete Labs and/or images reviewed: Labs reviewed by me Assessment/Plan Assessment/Plan Acute hypoxic respiratory failure History COVID-19 and Pulmonary fibroid Pneumonia Gram-positive and Gram-negative Acute on chronic diastolic congestive heart failure with exacerbation History of angina with negative left heart catheterization Diabetes type Hypothyroidism History of CVA Continuing current management. The patient is still have a lot of shortness for breath and carb profusely. IV antibiotic Continuing steroids Continuing to wean off oxygen Continuing with physical therapy Discharge planning when respiratory status improves Plan discussed with: Patient Date of Service: Feb 26, 2024 Billing Provider: QUIN AGUILAR MD Common Visit Codes: [id number] INP/OBS CARE(HIGH) QUIN AGUILAR MD Feb 26, 2024 12:05
--- NOTE | 2024-02-26 21:14 | DVHPN2 ---
Progress Note - Dictate Date Seen: Feb 26, 2024 Medical Necessity Reason Pt with a Central, PICC or Fol: No Subjective Patient seen and examined at bedside. Breathing comfortably on room air. Overnight events reviewed. vital signs Vital Sign Date Time Temp Pulse Resp B/P (MAP) Pulse Ox O2 Delivery O2 Flow Rate FiO2 02/26/24 20:19 80 18 145/49 96 2.0 28 02/26/24 17:00 97.6 97.6 02/26/24 13:29 Room Air Total Intake and Output 02/25/24 02/25/24 02/26/24 15:00 23:00 07:00 Intake Total 350 ml 1150 ml 800 ml Output Total 800 ml 500 ml Balance 350 ml 350 ml 300 ml medications Current Medications Medications Dose Ordered Sig/Abelardo Route Start Time Stop Time Status Last Admin Dose Admin Albuterol 2.5 mg Q6HPRN PRN NEB 02/20/24 19:45 Cancel Ipratropium [place] 0.5 mg Q6HPRN PRN NEB 02/20/24 19:45 Cancel Duloxetine HCl 30 mg DAILY PO 02/21/24 10:00 02/26/24 08:52 30 MG Levothyroxine Sodium 75 mcg QAM@0600 PO 02/21/24 06:00 02/26/24 06:37 75 MCG Atorvastatin Calcium 40 mg HS PO 02/20/24 22:00 02/25/24 20:52 40 MG Ondansetron HCl 4 mg Q4HP PRN IV 02/20/24 19:45 Enoxaparin Sodium 40 mg DAILY SC 02/21/24 10:00 02/26/24 08:52 40 MG Acetaminophen 650 mg Q6HP PRN PO 02/20/24 19:45 02/26/24 12:06 650 MG Ceftriaxone Sodium 50 ml @ 100 mls/hr DAILY@09 IV 02/22/24 09:00 UNV Azithromycin 250 ml @ 125 mls/hr DAILY IV 02/22/24 10:00 02/26/24 12:04 125 MLS/HR Ipratropium [place] 0.5 mg Q8HR NEB 02/23/24 22:00 02/26/24 13:29 0.5 MG Pantoprazole Sodium 40 mg DAILY IV 02/24/24 10:00 02/26/24 08:52 40 MG Diagnostic Test (Pha) 1 strip ACHS 02/23/24 17:00 02/26/24 16:35 1 STRIP Insulin Human Regular ACHS SC 02/23/24 17:00 02/26/24 16:35 8 UNITS Dextrose 50 ml UD PRN IV 02/23/24 16:30 Ampicillin Sodium/ Sulbactam Sodium 3 gm/Sodium Chloride 100 ml @ 100 mls/hr Q6H IV 02/23/24 20:00 02/26/24 20:10 100 MLS/HR Methylprednisolone Sodium Succinate 40 mg BID IV 02/24/24 10:00 02/26/24 12:02 40 MG objective Gen.: Patient lying in bed in no apparent distress. Breathing on room air. Head: Normocephalic, atraumatic. Eyes: EOMI/PERRLA. Ears: Normal hearing. Normal anatomy. Neck/trachea: Trachea midline, supple. Nose: Normal external anatomy. Mouth: Moist mucous membranes. Chest: Decreased air entry bilaterally. No wheezing or rhonchi. Cardiovascular: Positive S1, positive S2. Regular rate and rhythm. Abdomen: Positive bowel sounds in all 4 quadrants. Soft, non-tender, non- distended. : Deferred. Rectal: Deferred. Skin: Warm, dry. Intact. Extremities: 2+ radial pulses bilaterally. No lower extremity edema. Neuro: Awake, alert, oriented x3. No gross motor or sensory deficits. Cranial nerves II through XII intact. Gait not assessed. laboratory and microbiology Laboratory Tests 02/25/24 06:19 02/24/24 06:06 Test 02/25/24 06:19 Range/Units Serum Glucose 208 H 74-106 mg/dL Assessment/Plan Impression: Pulmonary fibrosis vs chronic interstitial lung disease Community-acquired pneumonia Acute on chronic hypoxic respiratory failure Cough Dyspnea Hypertension Prior hx of COVID 19 infection Events: Breathing on room air. Supplemental oxygen PRN. Arrange for home O2 if unable to be liberated from oxygen. Continue IV steroids - taper as tolerated Continue antibiotics Continue bronchodilators Incentive spirometry Accu-Cheks, ISS. GI/DVT prophylaxis Plan: Supplemental oxygen PRN Titrate to keep O2 sats above 92%. Chest CT demonstrated reticular interstitial changes with septal thickening and hazy ground-glass opacities along the periphery of the lungs, most notably in left upper lobe. Mild associated bronchiectasis. No obvious honeycombing. Findings may relate to early changes of pulmonary fibrosis or pneumonitis. Continue bronchodilators. Continue antibiotics Incentive spirometry Monitor renal function. Monitor electrolytes. Supplement as necessary. Monitor ins and outs. Will require outpatient evaluation Will need to send out: RF, BEVERLEY, Anti-CCP. Obtain High resolution CT chest in 1 mm slices to evaluate. DVT prophylaxis. Prognosis: Poor given patient's multiple co-morbidities. Rest of plan per hospitalist and other consultants. Thank you Dr. Cameron Schmitt MD, for allowing me to participate in this patient's care. Further recommendations will depend on the patient's clinical course. Please do not hesitate to contact me if you have any questions or concerns. This medical document was created using an electronic medical record system with [employer] dictation system. Although these documentations are being carefully reviewed, there may still be some phonetic and typographical changes. The errors are purely typographical, due to imperfection on the software program, and do not reflect any compromise in the patient's medical care. Dietary Evaluation Review Comments: Continue current plan of care Expected Outcomes/Goals: F/U in 3-5 days Plan discussed with: Patient, Other (RN) GABRIELE ANAND MD Feb 26, 2024 21:14
[2024-02-27] VITALS (12 sets, daily range): BP systolic 134–155; BP diastolic 42–75; PULSE 58–82; RESP 16–20; TEMP 97.7–98.2; O2SAT 94–100
--- NOTE | 2024-02-27 12:53 | DVHPN2 ---
Subjective Patient is seen and examined at bedside. Still coughing a lot. Unable to sleep yesterday because of coughing Reviewed: Care Plan, H&P, Labs, Medications, Previous Orders, Radiology Changes from previous H/P or p: No Changes General: Per HPI Objective Vitals Vital Signs Date Time Temp Pulse Resp B/P (MAP) Pulse Ox O2 Delivery O2 Flow Rate FiO2 02/27/24 09:00 97.7 64 19 154/66 (95) 97 97.7 02/27/24 08:00 Room Air* 0 21 Intake/Output Intake and Output 02/27/24 07:00 Intake Total 1800 ml Output Total 1000 ml Balance 800 ml Intake Oral 1050 ml IV Total 750 ml Output Urine Total 1000 ml # Bowel Movements 5 General Appearance: Alert, No acute distress HEENT: Atraumatic, PERRLA, EOMI, Mucous membr. moist/pink Neck: Supple Cardiovascular: Regular rate, Normal S1, Normal S2, No murmurs, Gallops, Rubs Abdomen: Normal bowel sounds, Soft, No tenderness, No hepatospenomegaly, No masses Neuro: Cranial nerves 3-12 NL Psych/Mental Status: Mental status NL Medications Current Medications Medications Dose Ordered Sig/Abelardo Route Start Time Stop Time Status Last Admin Dose Admin Albuterol 2.5 mg Q6HPRN PRN NEB 02/20/24 19:45 Cancel Ipratropium [place] 0.5 mg Q6HPRN PRN NEB 02/20/24 19:45 Cancel Duloxetine HCl 30 mg DAILY PO 02/21/24 10:00 02/27/24 07:55 30 MG Levothyroxine Sodium 75 mcg QAM@0600 PO 02/21/24 06:00 02/27/24 06:08 75 MCG Atorvastatin Calcium 40 mg HS PO 02/20/24 22:00 02/26/24 21:21 40 MG Ondansetron HCl 4 mg Q4HP PRN IV 02/20/24 19:45 Enoxaparin Sodium 40 mg DAILY SC 02/21/24 10:00 02/27/24 07:57 40 MG Acetaminophen 650 mg Q6HP PRN PO 02/20/24 19:45 02/26/24 12:06 650 MG Ceftriaxone Sodium 50 ml @ 100 mls/hr DAILY@09 IV 02/22/24 09:00 UNV Azithromycin 250 ml @ 125 mls/hr DAILY IV 02/22/24 10:00 02/27/24 09:39 125 MLS/HR Ipratropium [place] 0.5 mg Q8HR NEB 02/23/24 22:00 02/27/24 07:04 0.5 MG Pantoprazole Sodium 40 mg DAILY IV 02/24/24 10:00 02/27/24 07:52 40 MG Diagnostic Test (Pha) 1 strip ACHS 02/23/24 17:00 02/27/24 10:06 1 STRIP Insulin Human Regular ACHS SC 02/23/24 17:00 02/27/24 11:32 6 UNITS Dextrose 50 ml UD PRN IV 02/23/24 16:30 Ampicillin Sodium/ Sulbactam Sodium 3 gm/Sodium Chloride 100 ml @ 100 mls/hr Q6H IV 02/23/24 20:00 02/27/24 07:52 100 MLS/HR Methylprednisolone Sodium Succinate 40 mg BID IV 02/24/24 10:00 02/27/24 07:53 40 MG Laboratory Results Laboratory Tests 02/24/24 06:06 02/25/24 06:19 Urinalysis Test 02/21/24 08:37 Urine Color Light-yellow (Yellow) Urine Clarity Clear (Clear) Urine pH 6.0 (5.0-9.0) Urine Specific [place] 1.005 (1.001-1.035) Urine Protein Negative (Negative) Urine Ketones Negative (Negative) Urine Blood Negative /uL (Negative) Urine Nitrite Negative (Negative) Urine Bilirubin Negative (Negative) Urine Urobilinogen Normal mg/dL (Negative) Urine Leukocyte Esterase Negative /uL (Negative) Urine RBC None seen /hpf (0 - 4) Urine WBC 1 /hpf (0 - 5) Urine Squamous Epithelial Cells None seen /hpf (<5) Urine Bacteria None seen /hpf (None Seen) Urine Glucose Normal mg/dL (Normal) Microbiology Microbiology Date/Time Source Procedure Growth Status 02/22/24 04:00 Nose MRSA Screen - Final Complete Labs and/or images reviewed: Labs reviewed by me Assessment/Plan Assessment/Plan Acute hypoxic respiratory failure History COVID-19 and Pulmonary fibroid Pneumonia Gram-positive and Gram-negative Acute on chronic diastolic congestive heart failure with exacerbation History of angina with negative left heart catheterization Diabetes type Hypothyroidism History of CVA Continuing current management. The patient is still have a lot of shortness for breath and carb profusely. IV antibiotic Continuing steroids Continuing to wean off oxygen Continuing with physical therapy Discharge planning when respiratory status improves Plan discussed with: Patient Date of Service: Feb 27, 2024 Billing Provider: QUIN AGUILAR MD Common Visit Codes: [id number] INP/OBS CARE(HIGH) QUIN AGUILAR MD Feb 27, 2024 12:53
--- NOTE | 2024-02-27 20:39 | DVHPN2 ---
Progress Note - Dictate Date Seen: Feb 27, 2024 Medical Necessity Reason Pt with a Central, PICC or Fol: No Subjective Patient seen and examined at bedside. Breathing comfortably on room air. Overnight events reviewed. vital signs Vital Sign Date Time Temp Pulse Resp B/P (MAP) Pulse Ox O2 Delivery O2 Flow Rate FiO2 02/27/24 20:00 Room Air* 0 21 02/27/24 18:37 76 18 100 02/27/24 17:00 97.7 153/75 (101) 97.7 Total Intake and Output 02/26/24 02/26/24 02/27/24 15:00 23:00 07:00 Intake Total 350 ml 1100 ml 350 ml Output Total 1000 ml Balance 350 ml 100 ml 350 ml medications Current Medications Medications Dose Ordered Sig/Abelardo Route Start Time Stop Time Status Last Admin Dose Admin Albuterol 2.5 mg Q6HPRN PRN NEB 02/20/24 19:45 Cancel Ipratropium [place] 0.5 mg Q6HPRN PRN NEB 02/20/24 19:45 Cancel Duloxetine HCl 30 mg DAILY PO 02/21/24 10:00 02/27/24 07:55 30 MG Levothyroxine Sodium 75 mcg QAM@0600 PO 02/21/24 06:00 02/27/24 06:08 75 MCG Atorvastatin Calcium 40 mg HS PO 02/20/24 22:00 02/26/24 21:21 40 MG Ondansetron HCl 4 mg Q4HP PRN IV 02/20/24 19:45 Enoxaparin Sodium 40 mg DAILY SC 02/21/24 10:00 02/27/24 07:57 40 MG Acetaminophen 650 mg Q6HP PRN PO 02/20/24 19:45 02/26/24 12:06 650 MG Ceftriaxone Sodium 50 ml @ 100 mls/hr DAILY@09 IV 02/22/24 09:00 UNV Azithromycin 250 ml @ 125 mls/hr DAILY IV 02/22/24 10:00 02/27/24 09:39 125 MLS/HR Ipratropium [place] 0.5 mg Q8HR NEB 02/23/24 22:00 02/27/24 18:27 0.5 MG Pantoprazole Sodium 40 mg DAILY IV 02/24/24 10:00 02/27/24 07:52 40 MG Diagnostic Test (Pha) 1 strip ACHS 02/23/24 17:00 02/27/24 16:35 1 STRIP Insulin Human Regular ACHS SC 02/23/24 17:00 02/27/24 16:47 6 UNITS Dextrose 50 ml UD PRN IV 02/23/24 16:30 Ampicillin Sodium/ Sulbactam Sodium 3 gm/Sodium Chloride 100 ml @ 100 mls/hr Q6H IV 02/23/24 20:00 02/27/24 13:30 100 MLS/HR Methylprednisolone Sodium Succinate 40 mg BID IV 02/24/24 10:00 02/27/24 07:53 40 MG objective Gen.: Patient lying in bed in no apparent distress. Breathing on room air. Head: Normocephalic, atraumatic. Eyes: EOMI/PERRLA. Ears: Normal hearing. Normal anatomy. Neck/trachea: Trachea midline, supple. Nose: Normal external anatomy. Mouth: Moist mucous membranes. Chest: Decreased air entry bilaterally. No wheezing or rhonchi. Cardiovascular: Positive S1, positive S2. Regular rate and rhythm. Abdomen: Positive bowel sounds in all 4 quadrants. Soft, non-tender, non- distended. : Deferred. Rectal: Deferred. Skin: Warm, dry. Intact. Extremities: 2+ radial pulses bilaterally. No lower extremity edema. Neuro: Awake, alert, oriented x3. No gross motor or sensory deficits. Cranial nerves II through XII intact. Gait not assessed. laboratory and microbiology Laboratory Tests 02/25/24 06:19 02/24/24 06:06 Test 02/25/24 06:19 Range/Units Serum Glucose 208 H 74-106 mg/dL Assessment/Plan Impression: Pulmonary fibrosis vs chronic interstitial lung disease Community-acquired pneumonia Acute on chronic hypoxic respiratory failure Cough Dyspnea Hypertension Prior hx of COVID 19 infection Events: Breathing on room air. Supplemental oxygen PRN. Assess and arrange for home O2 if unable to be liberated from oxygen. Continue IV steroids - taper as tolerated Continue antibiotics Continue bronchodilators Incentive spirometry Accu-Cheks, ISS. GI/DVT prophylaxis Plan: Supplemental oxygen PRN Titrate to keep O2 sats above 92%. Chest CT demonstrated reticular interstitial changes with septal thickening and hazy ground-glass opacities along the periphery of the lungs, most notably in left upper lobe. Mild associated bronchiectasis. No obvious honeycombing. Findings may relate to early changes of pulmonary fibrosis or pneumonitis. Continue bronchodilators. Continue antibiotics Incentive spirometry Monitor renal function. Monitor electrolytes. Supplement as necessary. Monitor ins and outs. Will require outpatient evaluation Will need to send out: RF, BEVERLEY, Anti-CCP. Obtain High resolution CT chest in 1 mm slices to evaluate. DVT prophylaxis. Prognosis: Poor given patient's multiple co-morbidities. Rest of plan per hospitalist and other consultants. Thank you Dr. Cameron Schmitt MD, for allowing me to participate in this patient's care. Further recommendations will depend on the patient's clinical course. Please do not hesitate to contact me if you have any questions or concerns. This medical document was created using an electronic medical record system with [employer] dictation system. Although these documentations are being carefully reviewed, there may still be some phonetic and typographical changes. The errors are purely typographical, due to imperfection on the software program, and do not reflect any compromise in the patient's medical care. Dietary Evaluation Review Comments: Continue current plan of care Expected Outcomes/Goals: F/U in 3-5 days Plan discussed with: Patient, Other (RN) GABRIELE ANAND MD Feb 27, 2024 20:39
[2024-02-28] VITALS (8 sets, daily range): BP systolic 122–154; BP diastolic 48–74; PULSE 62–82; RESP 16–18; TEMP 97.4–97.8; O2SAT 94–100
[2024-02-28] MEDS ORDERED: PRED20TA2 PO (08:49)
--- NOTE | 2024-02-28 09:03 | DVHDS2 ---
Discharge Summary Date of Admission Feb 20, 2024 at 19:39 Date of Discharge: Feb 28, 2024 Labs/Diagnostic Data: Laboratory Results Test 02/26/24 06:39 02/25/24 17:44 02/25/24 06:19 02/24/24 06:06 POC Glucose 183 mg/dl (70-106) Blood Gas Specimen Type Arterial Blood Gas Sample Site Right radial Blood Gas Patient Temperature 37.0 Arterial Blood Date Drawn [id number] Arterial Blood pH 7.490 (7.350-7.450) Arterial Blood Partial Pressure CO2 33.8 mmHg (32.0-45.0) Arterial Blood Partial Pressure O2 54.5 mmHg (83.0-108.0) Arterial Blood HCO3 25.2 mmol/L (21.0-28.0) Arterial Blood Oxygen Saturation 89.8 % (94.0-98.0) Arterial Blood Base Excess 2.3 mmol/L (-2.0-3.0) Arterial Blood Oxyhemoglobin 88.7 % (94.0-98.0) Arterial Blood Carboxyhemoglobin 0.8 % (0.5-1.5) Arterial Blood Methemoglobin 0.4 % (0.0-1.5) Lee Test Modified Blood Gas Total Hemoglobin 13.80 g/dL (12.0-16.0) Blood Gas Modality Room air FiO2 % 21.0 Blood Gas Critical Value Read Back Yes Blood Gas Notified Whom Blood Gas Notified Time [id number] Blood Gas Notified By Purnima cade rrt Sodium Level 139 mmol/L (136-145) Potassium Level 3.8 mmol/L (3.5-5.1) Chloride Level 102 mmol/L (98-107) Carbon Dioxide Level 29 mmol/L (20-31) Anion Gap 8 (5-15) Blood Urea Nitrogen 21 mg/dL (9-23) Creatinine 0.82 mg/dL (0.550-1.02) Glomerular Filtration Rate Calc 75 mL/min (>90) BUN/Creatinine Ratio 25.6 (10.0-20.0) Serum Glucose 208 mg/dL (74-106) Calcium Level 9.1 mg/dL (8.7-10.4) Total Bilirubin 0.6 mg/dL (0.2-1.0) Aspartate Amino Transferase (AST) 34 U/L (13-40) Alanine Aminotransferase (ALT) 38 U/L (7-40) Alkaline Phosphatase 67 U/L (46-116) Total Protein 6.7 g/dL (5.7-8.2) Albumin 3.8 g/dL (3.2-4.8) White Blood Count 6.0 10^3/uL (4.4-10.8) Red Blood Count 4.58 10^6/uL (4.0-5.20) Hemoglobin 14.0 g/dL (12.2-16.2) Hematocrit 41.2 % (36.0-46.0) Mean Corpuscular Volume 90.1 fL (80.0-100.0) Mean Corpuscular Hemoglobin 30.5 pg (28.0-32.0) Mean Corpuscular Hemoglobin Concent 33.9 g/dL (32.0-36.0) Red Cell Distribution Width 14.2 % (11.8-14.3) Platelet Count 184 10^3/uL (140-450) Mean Platelet Volume 8.7 fL (6.9-10.8) Neutrophils (%) (Auto) 73.2 % (37.0-80.0) Lymphocytes (%) (Auto) 24.0 % (10.0-50.0) Monocytes (%) (Auto) 1.7 % (0.0-12.0) Eosinophils (%) (Auto) 0.4 % (0.0-7.0) Basophils (%) (Auto) 0.7 % (0.0-2.0) Neutrophils # (Auto) 4.4 10 ^3/uL (1.6-8.6) Lymphocytes # (Auto) 1.4 10 ^3/uL (0.4-5.4) Monocytes # (Auto) 0.1 10 ^3/uL (0-1.3) Eosinophils # (Auto) 0 10 ^3/uL (0-0.8) Basophils # (Auto) 0 10 ^3/uL (0-0.2) Nucleated Red Blood Cells 0.1 % Test 02/21/24 09:50 02/21/24 08:37 02/20/24 18:04 02/20/24 15:46 Influenza Type A Antigen Negative (Negative) Influenza Type B Antigen Negative (Negative) SARS-CoV-2 Antigen (Rapid) Negative (NEGATIVE) Urine Color Light-yellow (Yellow) Urine Clarity Clear (Clear) Urine pH 6.0 (5.0-9.0) Urine Specific [place] 1.005 (1.001-1.035) Urine Protein Negative (Negative) Urine Ketones Negative (Negative) Urine Blood Negative /uL (Negative) Urine Nitrite Negative (Negative) Urine Bilirubin Negative (Negative) Urine Urobilinogen Normal mg/dL (Negative) Urine Leukocyte Esterase Negative /uL (Negative) Urine RBC None seen /hpf (0 - 4) Urine WBC 1 /hpf (0 - 5) Urine Squamous Epithelial Cells None seen /hpf (<5) Urine Bacteria None seen /hpf (None Seen) Urine Glucose Normal mg/dL (Normal) Troponin I High Sensitivity < 3 ng/L (</=34) Lactic Acid Level 0.9 mmol/L (0.4-2.0) Test 02/20/24 14:54 B-Type Natriuretic Peptide 39.06 pg/mL (0-100) Other Laboratory Tests 02/25/24 06:19 02/24/24 06:06 Brief Hx & Hospital Course: 73-year-old female w pmhx Diabetes mellitus, hypertension, CHF, CVA, mi, covid infection, thyroid disease presents for evaluation of a cough. Patient reports a four day history of having a productive cough with yellow phlegm with shortness for breath. Denies chest pain or palpitations. Denies fever or chills. No other acute complaints reported. At presentation patient has low-grade fevers, tachycardia tachypnea and has soft pressures. CXR consistent with concern for pneumonia, there is bilateral interstitial opacities. clinically with rales, SOB, treated initially as volume overload and PNA with iv abx. lasix does not resolve rales and pt remians on oxygen (unable to wean). echo recent admission shows EF 60%, mild TR/MR. CT chest obtained 02/22: Reticular interstitial changes with septal thickening and hazy ground-glass opacities along the periphery of the lungs, most notably in the left upper lobe. There is mild associated bronchiectasis. There is no obvious honeycombing. Findings May relate to early changes of pulmonary fibrosis or pneumonitis. IV abx ctx/azithro were continued for x7 days, steroids started when suspicion of pulmonary fibrosis confirmed and lasix stopped. Pulmonary consulted and agreed with steroids. rheum panel labs ordered for outpatient follow-up. ABG done showing patent qualify fr ooxygen at rest. oxygen delivered at bedside. dc wth steroid taper and plan below. stable for dc with oxygen. Diagnosis: Pulmonary fibrosis; pneumonitis; ground-glass opacities in lung; bronchiectasis; chronic interstitial lung disease, possible; Community-acquired pneumonia g+/g- likely; Acute on chronic hypoxic respiratory failure; Hypertension; Prior hx of COVID 19 infection; T2DM, hypothyroidism, History CVA discharge plan: - taper steroids (40mg x 3 days, 20mg x 4 days, 10mg x 4 days). high blood sugars from steroids, please take low carb diet and hydrate well during taper. - continue oxygen at 1L. measure oxygen at rest with home SpO2 device, keep O2 >90% with lowest O2 flow possible. - f/u with PCP - f/u with pulmonary doctor (dr mcintyre). will follow-up with lab work. - stop antibiotics, no further needed. completed 7 day IV antibiotics - continue to take other home medications as prior. Condition at Discharge: Fair Final Diagnosis/Problems List pulmonary fibrosis Discharge Disposition: Home Discharge Instruct/Medications Diet: Cardiac 2g Na,low cholest Activity: No Restrictions, As Tolerated Discharge Statement: "Patient was advised to return to the ER or call 911 if any headaches, dizziness, shortness of breath, chest pain, abdominal pain, bleeding, fevers, or worsening of medical condition. Patient was counseled about treatment plan, medications, possible side effects, patientverbalized understanding. All questions were answered to the best of my ability. This discharge took greater then 30 minutes in planning, reviewing documentation, counseling the patient, and discussing with other team members." ASSESSMENT ASSESSMENT Assessment Pulmonary fibrosis; pneumonitis; ground-glass opacities in lung; bronchiectasis; chronic interstitial lung disease, possible; Community-acquired pneumonia g+/g- likely; Acute on chronic hypoxic respiratory failure; Hypertension; Prior hx of COVID 19 infection; T2DM, hypothyroidism, History CVA Date of Service: Feb 28, 2024 Billing Provider: SHEEBA GAMBOA MD Common Visit Codes: 42478-AKE/OBS DISCH DAY >30min SHEEBA GAMBOA MD Feb 28, 2024 09:03
--- NOTE | 2024-02-28 18:45 | DVHPN2 ---
Progress Note - Dictate Date Seen: Feb 28, 2024 Medical Necessity Reason Pt with a Central, PICC or Fol: No Subjective Patient seen and examined at bedside. On supplemental oxygen Overnight events reviewed. vital signs Vital Sign Date Time Temp Pulse Resp B/P (MAP) Pulse Ox O2 Delivery O2 Flow Rate FiO2 02/28/24 16:39 97.8 82 16 98 02/28/24 13:06 154/60 (91) 02/28/24 08:00 Room Air* 0 21 Total Intake and Output 02/27/24 02/27/24 02/28/24 15:00 23:00 07:00 Intake Total 350 ml 500 ml 950 ml Output Total 1200 ml Balance 350 ml -700 ml 950 ml medications Current Medications Medications Dose Ordered Sig/Abelardo Route Start Time Stop Time Status Last Admin Dose Admin Albuterol 2.5 mg Q6HPRN PRN NEB 02/20/24 19:45 Cancel Ipratropium [place] 0.5 mg Q6HPRN PRN NEB 02/20/24 19:45 Cancel Ceftriaxone Sodium 50 ml @ 100 mls/hr DAILY@09 IV 02/22/24 09:00 UNV objective Gen.: Patient lying in bed in no apparent distress. On supplemental oxygen. Head: Normocephalic, atraumatic. Eyes: EOMI/PERRLA. Ears: Normal hearing. Normal anatomy. Neck/trachea: Trachea midline, supple. Nose: Normal external anatomy. Mouth: Moist mucous membranes. Chest: Decreased air entry bilaterally. No wheezing or rhonchi. Cardiovascular: Positive S1, positive S2. Regular rate and rhythm. Abdomen: Positive bowel sounds in all 4 quadrants. Soft, non-tender, non- distended. : Deferred. Rectal: Deferred. Skin: Warm, dry. Intact. Extremities: 2+ radial pulses bilaterally. No lower extremity edema. Neuro: Awake, alert, oriented x3. No gross motor or sensory deficits. Cranial nerves II through XII intact. Gait not assessed. laboratory and microbiology Laboratory Tests 02/25/24 06:19 02/24/24 06:06 Test 02/25/24 06:19 Range/Units Serum Glucose 208 H 74-106 mg/dL Assessment/Plan Impression: Pulmonary fibrosis vs chronic interstitial lung disease Community-acquired pneumonia Acute on chronic hypoxic respiratory failure Cough Dyspnea Hypertension Prior hx of COVID 19 infection Events: On supplemental oxygen 2 LPM NC Taper O2 as tolerated Assess and arrange for home O2 Continue IV steroids - taper as tolerated Continue antibiotics Continue bronchodilators Incentive spirometry Accu-Cheks, ISS. GI/DVT prophylaxis Follow up in Pulmonary Clinic in 1-2 weeks. Plan: Supplemental oxygen Titrate to keep O2 sats above 92%. Chest CT demonstrated reticular interstitial changes with septal thickening and hazy ground-glass opacities along the periphery of the lungs, most notably in left upper lobe. Mild associated bronchiectasis. No obvious honeycombing. Findings may relate to early changes of pulmonary fibrosis or pneumonitis. Continue bronchodilators. Continue antibiotics Incentive spirometry Monitor renal function. Monitor electrolytes. Supplement as necessary. Monitor ins and outs. Will require outpatient evaluation Will need to send out: RF, BEVERLEY, Anti-CCP. Obtain High resolution CT chest in 1 mm slices to evaluate. DVT prophylaxis. Prognosis: Poor given patient's multiple co-morbidities. Rest of plan per hospitalist and other consultants. Thank you Dr. Cameron Schmitt MD, for allowing me to participate in this patient's care. Further recommendations will depend on the patient's clinical course. Please do not hesitate to contact me if you have any questions or concerns. This medical document was created using an electronic medical record system with [employer] computerized dictation system. Although these documentations are being carefully reviewed, there may still be some phonetic and typographical changes. The errors are purely typographical, due to imperfection on the software program, and do not reflect any compromise in the patient's medical care. Dietary Evaluation Review Comments: Continue current plan of care Expected Outcomes/Goals: F/U in 3-5 days Plan discussed with: Patient, Other (MAINOR Shaw) GABRIELE ANAND MD Feb 28, 2024 18:45
== END 2024-02-28 17:30 | disposition home or self-care (01) | DRG 177 ==
LOC: ER 14:02 → EDUNIT# 19:39 → OVERFLOW 19:39 → CENTRAL 02-21 18:31
PROVIDERS: ADMIT Nurse Practitioner; ATTEND Student in an Organized Health Care Education/Training Program
DX: J15.69 Pneumonia due to other Gram-negative bacteria (principal); I50.33 Acute on chronic diastolic (congestive) heart failure; J96.21 Acute and chronic respiratory failure with hypoxia; J47.0 Bronchiectasis with acute lower respiratory infection; J15.9 Unspecified bacterial pneumonia; E03.9 Hypothyroidism, unspecified; Z20.822 Contact with and (suspected) exposure to COVID-19; I11.0 Hypertensive heart disease with heart failure; E11.9 Type 2 diabetes mellitus without complications; J84.10 Pulmonary fibrosis, unspecified; J98.4 Other disorders of lung; E78.5 Hyperlipidemia, unspecified; Z88.1 Allergy status to other antibiotic agents; Z88.5 Allergy status to narcotic agent; Z90.49 Acquired absence of other specified parts of digestive tract; Z86.73 Personal history of transient ischemic attack (TIA), and cerebral infarction without residual deficits; I25.2 Old myocardial infarction; Z82.49 Family history of ischemic heart disease and other diseases of the circulatory system; Z83.3 Family history of diabetes mellitus; Z82.3 Family history of stroke; Z80.41 Family history of malignant neoplasm of ovary; Z83.42 Family history of familial hypercholesterolemia
CPT/HCPCS: 36415; 36600; 71045; 71250; 80048; 80053; 81001; 82805; 82962; 83605; 83880; 84484; 85025; 87081; 87426; 87804; 93005; 94640; 97163; G0378; J1815; J2470; J3490